=== PATIENT | female | born 1955 | race Caucasian/White ===

== ENCOUNTER → 2021-06-27 12:28 | Outpatient (CLI) | payer MEDICARE, BC, SELFPAY ==
--- NOTE | ~2021-06-27 | CT_ITS ---
EXAMINATION: CT abdomen pelvis wo con DATE: 06/27/2021 12:58 INDICATION: Generalized abdominal pain. TECHNIQUE: Computed tomography (CT) of the abdomen and pelvis was performed without intravenous contr ast. Automated exposure control and iterative reconstruction technique were employed. The dose-length product was 928.60 mGy-cm. COMPARISON: None. FINDINGS: The visualized portions of the lung bases demonstrate mild atelectasis. No pleural effusion . Cardiomegaly is noted. No pericardial effusion. There is a 14 mm cyst in the liver. There are zambrano es of cholecystectomy. The spleen, pancreas, adrenal glands, and kidneys are normal. There are scatte red diverticula in the colon. There is mild fat stranding around sigmoid colon, consistent with diver ticulitis. The appendix is not visualized. There are no dilated loops of bowel. There are no patholog ically enlarged lymph nodes. There is no free intraperitoneal fluid. There are areas of subcutaneous fat stranding in the intra-abdominal wall, likely inflammation or scarring. There is lumbar levoscoli osis and severe spondylosis. There is severe lower thoracic spondylosis. IMPRESSION: 1. Mild sigmoid diverticulitis. No perforation or abscess. 2. Areas of subcutaneous fat stranding in anterior abdominal wall, consistent with inflammation versu s scarring. Reviewed, dictated and finalized at location A. IMPRESSION: 1. Mild sigmoid diverticulitis. No perforation or abscess. 2. Areas of subcutaneous fat stranding in anterior abdominal wall, consistent w ith inflammation versus scarring.
== END ==
PROVIDERS: Visit Provider Surgery
DX: R10.84 Generalized abdominal pain (principal); K57.32 Diverticulitis of large intestine without perforation or abscess without bleeding
CPT/HCPCS: 74176

== ENCOUNTER → 2021-08-03 12:33 | Outpatient (CLI) | payer MEDICARE, BC, SELFPAY ==
--- NOTE | ~2021-08-03 | MM_ITS ---
EXAMINATION: MM screening alexis BI w [place] HISTORY: Screening mammogram TECHNIQUE: Craniocaudal and mediolateral oblique 3-D tomosynthesis images were obtained and synthetic 2-D images were generated. CAD analysis was submitted and interpreted. COMPARISON: 12/17/2019, 10/07/2018, 07/16/2017 outside bilateral screening mammogram examinations BREAST PARENCHYMAL COMPOSITION: There are scattered areas of fibroglandular density. FINDINGS: Bilateral stable circumscribed benign-appearing axillary and/or upper outer quadrant tail o pacities, including probable benign lymph node. There is no evidence of suspicious mass, calcificatio n, or architectural distortion to suggest malignancy in either breast. There has been no suspicious i nterval change. IMPRESSION: 1. No mammographic evidence of malignancy. 2. Recommend routine screening mammography in one year. BI-RADS Category 2: Benign finding(s). Reviewed, dictated and finalized at location D.
== END ==
PROVIDERS: PCP Internal Medicine; Visit Provider Nurse Practitioner
DX: Z12.31 Encounter for screening mammogram for malignant neoplasm of breast (principal)
CPT/HCPCS: 77063; 77067

== ENCOUNTER 2022-01-12 11:43 | Outpatient (CLI) | payer MEDICARE, BC, SELFPAY ==
--- NOTE | ~2022-01-12 | XR_ITS ---
EXAMINATION: XR abdomen/kub 1V INDICATION: Unspecified abdominal pain TECHNIQUE: Supine views of the abdomen were obtained on 2 radiographs. COMPARISON: CT, 06/27/2021 FINDINGS: A moderate volume of colonic stool is present. No dilated loops of bowel are evident. The v isualized lung bases are clear. Lumbar levoscoliosis is noted. Cholecystectomy clips are present in t he right upper quadrant. IMPRESSION: 1. Moderate volume of colonic stool. Reviewed, dictated and finalized at location F.
== END 2022-01-12 11:44 | disposition home or self-care (01) ==
PROVIDERS: PCP Internal Medicine; Visit Provider Nurse Practitioner
DX: R10.9 Unspecified abdominal pain (principal); R19.03 Right lower quadrant abdominal swelling, mass and lump; Z98.890 Other specified postprocedural states; Z87.19 Personal history of other diseases of the digestive system
CPT/HCPCS: 74018

== ENCOUNTER 2022-01-20 08:03 | Outpatient (CLI) | payer MEDICARE, BC, SELFPAY ==
--- NOTE | ~2022-01-20 | CT_ITS ---
EXAMINATION: CT abdomen pelvis w con INDICATION: Right lower quadrant pain and bulge, concern for recurrent hernia TECHNIQUE: Computed tomographic images of the abdomen and pelvis were obtained after the administrati on of 100 cc of Omnipaque 350 intravenous contrast. The dose-length product (DLP) was 1126.07 mGy-cm. Automated exposure control and iterative reconstruction technique were employed. COMPARISON: 06/27/2021 FINDINGS: Minimal dependent atelectasis is present in the lung bases. Cardiomegaly is noted. There is a 1.4 cm cyst of the right hepatic lobe. The spleen, pancreas, and adrenal glands are normal. The ga llbladder is surgically absent. Right Hypoattenuating lesions in the kidneys, measuring up to 4 mm on the right, are too small to characterize but likely represent cysts. No pathologically enlarged abdo elba or pelvic lymph nodes are identified. There is no free intraperitoneal gas or evidence of bowel obstruction. Colonic diverticulosis is present without evidence of diverticulitis. There is a modera te-sized ventral hernia involving the right lower quadrant abdominal wall which contains multiple non obstructed loops of small bowel. A smaller hernia seen just cranial to this larger hernia which conta ins a small amount of fat. There is moderate lumbar spondylosis. IMPRESSION: 1. Two ventral hernias of the right lower quadrant abdominal wall, one of which contains multiple loo ps of nonobstructed small bowel and the other a small amount of fat. Reviewed, dictated and finalized at location B. IMPRESSION: 1. Two ventral hernias of the right lower quadrant abdominal wall, one of which contains multiple loops of nonobstructed small bowel and the other a small dalia unt of fat.
[2022-01-20 08:28] LABS: Estimated Glomerular Filt Rate 50
== END 2022-01-20 08:04 | disposition home or self-care (01) ==
LOC: ANHIMG 08:06
PROVIDERS: PCP Internal Medicine; Visit Provider Nurse Practitioner
DX: R10.9 Unspecified abdominal pain (principal); K43.9 Ventral hernia without obstruction or gangrene
CPT/HCPCS: 74177; Q9967

== ENCOUNTER → 2022-03-08 09:52 | Outpatient (CLI) | payer MEDICARE, BC, SELFPAY ==
--- NOTE | ~2022-03-08 | DEXA_ITS ---
Bone Density Report Name: NGUYEN ABRAHAM Age: 67 Sex: Female Ethnicity: White Date of : 1955 Indication: postmenopausal; screening for osteoporosis; height loss; hysterectomy; Referring Provider: GERRI COOPER Study: Bone densitometry was performed. Exam Date: March 08, 2022 Accession number: [id number] Bone Density: Region BMD T-score Z-score Classification AP Spine (L1, L4) 1.270 2.1 3.9 Normal Femoral Neck (Left) 0.902 0.5 2.0 Normal Total Hip (Left) 1.142 1.6 2.9 Normal Femoral Neck (Right) 0.851 0.0 1.6 Normal Total Hip (Right) 1.114 1.4 2.7 Normal Total Hip Mean 1.128 1.5 2.8 Normal World Health Organization criteria for BMD impression classify patients as: Normal (T-score at or above -1.0), Osteopenia (T-score between -1.0 and -2.5), or Osteoporosis (T-score at or below -2.5). 10-year Fracture Risk: FRAX not reported because: All T-scores for Spine Total, Hip Total, Femoral Neck at or above -1.0 Clinical Information Provided by Patient: Has used the following medications: Vitamin D, Calcium, LEVOTHYROXINE Has the following medical conditions: Hysterectomy Patient maximum height was 64.0 Menopause Age: 34 No regular weight bearing exercise Onset of menses at age 10 Number of children 1 Impression: The patient has normal bone mass. Discussion: BONE DENSITY IS ABOVE THE MINIMUM DESIRABLE LEVEL AT ALL SKELETAL SITES TESTED. This patient?s bone mineral density is above the minimum desirable level (T-score -1.0 or better) at all sites measured. The patient should follow a healthful lifestyle (good nutrition with adequate calcium and vitamin D, and appropriate weight-bearing exercise). Follow-Up: Consider repeating this study in 5 years or sooner if there is some new clinical indication. Reported by: [facility] on 03/08/2022 10:24:00 AM. Reviewed, dictated and finalized at location AJenny CORDERO
== END ==
PROVIDERS: PCP Nurse Practitioner; Visit Provider Obstetrics & Gynecology
DX: Z78.0 Asymptomatic menopausal state (principal)
CPT/HCPCS: 77080

== ENCOUNTER 2022-03-13 09:32 | Outpatient (CLI) | payer MEDICARE, BC, SELFPAY ==
--- NOTE | 2022-03-13 09:55 | ECHO_ITS ---
Patient Info Name: Kari Marrero Age: 67 years : 1955 Gender: Female Ht: 61 in Wt: 190 lbs BSA: 1.97 m2 HR: 97 bpm BP: 132 / 74 mmHg Technical Quality: Good Exam Date: 03/13/2022 10:04 AM Exam Location: [facility] Patient Status: Outpatient Admit Date: 03/13/2022 Staff Ordering Physician: Leonor Benoit NP Generating Plant Superintendent: Kelsea Eric RDCS Attending Provider: Leonor Benoit NP Referring Physician: Kaycee BASURTO; Exam Type: CA echo doppler color flow Study Info Indications I51.7 - Cardiomegaly Complete two-dimensional, color flow and Doppler transthoracic echocardiogram is performed. Summary 1. Complete two-dimensional, color flow and Doppler transthoracic echocardiogram is performed. 2. Left ventricular chamber dimension is mildly enlarged. 3. Left ventricular systolic function is normal, estimated at 60-65%. 4. The left ventricular diastolic function is abnormal. 5. E/e' 10 is mildly elevated. 6. Left atrial chamber dimension is moderately enlarged. 7. Right atrial chamber dimension is severely enlarged. 8. There is mild aortic valve sclerosis. 9. There is trace aortic valve regurgitation. 10. There is trace mitral valve regurgitation. 11. There is mild tricuspid valve regurgitation. 12. No pulmonary hypertension, estimated pulmonary arterial systolic pressure is 27 mmHg. Left Ventricle E/e' 10 is mildly elevated. Left ventricular chamber dimension is mildly enlarged. Left ventricular systolic function is normal, estimated at 60-65%. The left ventricular diastolic function is abnormal. Right Ventricle Right ventricular systolic function is normal and with normal TAPSE 2.4 cm. Right ventricular chamber dimension is normal. Left Atria Left atrial chamber dimension is moderately enlarged. Right Atria Right atrial chamber dimension is severely enlarged. Aortic Valve The aortic valve is trileaflet. There is mild aortic valve sclerosis. There is no aortic valve stenosis. There is trace aortic valve regurgitation. Pulmonic Valve There is no pulmonic regurgitation. Mitral Valve There is no mitral valve stenosis. There is trace mitral valve regurgitation. Tricuspid Valve There is mild tricuspid valve regurgitation. No pulmonary hypertension, estimated pulmonary arterial systolic pressure is 27 mmHg. Pericardium/Pleural There is no pericardial effusion. Inferior Vena Cava Normal inferior vena cava with >50% collapse upon inspiration consistent with normal right atrial pressure, 5 mmHg. Aorta The aortic root size at the sinus of Valsalva is normal. Left Ventricular Outflow Tract Name Value Normal LVOT 2D LVOT Diameter 2.0 cm LVOT Doppler LVOT Peak Gradient 4 mmHg LVOT Mean Gradient 3 mmHg LVOT VTI 19 cm LVOT VTI/AV VTI Ratio 0.9 LVOT Stroke Volume 60 ml LVOT CO 15.4 l/min LVOT CI 7.8 l/min/m2 Pulmonic Valve
== END 2022-03-13 09:33 | disposition home or self-care (01) ==
LOC: ANHCARD 09:33
PROVIDERS: PCP Nurse Practitioner; Visit Provider Nurse Practitioner
DX: I51.7 Cardiomegaly (principal); I36.1 Nonrheumatic tricuspid (valve) insufficiency
CPT/HCPCS: 93306

== ENCOUNTER 2022-07-17 00:56 | Day surgery (SDC) | payer MEDICARE, BC, SELFPAY ==
[2022-07-14 15:10] VITALS: BMI 33.0
[2022-07-17] VITALS (9 sets, daily range): BP systolic 104–119; BP diastolic 62–85; PULSE 50–79; RESP 12–20; TEMP 36.3; O2SAT 96–100; BMI 33.2
--- NOTE | 2022-07-17 08:30 | ECG_ITS ---
Measurements Intervals [place] Rate: 50 P: 73 [place]: 184 QRS: 32 QRSD: 90 T: 31 QT: 447 QTc: 409 Interpretive Statements SINUS BRADYCARDIA POOR R-WAVE PROGRESSION LOW QRS VOLTAGE ABNORMAL ECG COMPARED TO ECG 07/17/2022 08:27:27 SINUS BRADYCARDIA REPLACES ATRIAL FIBRILLATION Electronically Signed On 07-17-2022 10:45:47 CDT by Femi Blake M.D.
[2022-07-17 08:46] LABS: Anion Gap 8 mmol/L (8-16); Blood Urea Nitrogen 19 mg/dL (7-17); Calcium 9.1 mg/dL (8.4-10.2); Carbon Dioxide 32 mmol/L (22-30); Chloride 100 mmol/L (98-107); Estimated CRCL calculation 43 ml/min; Estimated Glomerular Filt Rate 45; Glucose 118 mg/dL (65-110); Magnesium 1.9 mg/dL (1.6-2.3); Potassium 3.3 mmol/L (3.4-5.0); Sodium 140 mmol/L (137-145)
--- NOTE | 2022-07-17 09:52 | WPDMODSED ---
Moderate Sedation Note-Pt Data Patient Data Diagnosis: Persistent atrial fibrillation Present Complaint: No complaints Procedure to be performed/Plan: DC cardioversion Allergies Allergy/AdvReac Type Severity Reaction Status Date / Time amoxicillin [From Augmentin] Allergy Vomiting Verified 07/17/22 08:32 clavulanic acid Allergy Vomiting Verified 07/17/22 08:32 [From Augmentin] codeine Allergy Vomiting Verified 07/17/22 08:32 fentanyl Allergy CARDIAC Verified 07/17/22 08:32 ARREST niacin Allergy Hives Verified 07/17/22 08:32 Home Medications Medication Instructions Recorded Confirmed Type kwgjkxh-cmouwgoneswim-btlxihrq 250 0.5 tablet PO DAILY 06/07/21 07/14/22 History mg-250 mg-65 mg tablet (Excedrin Migraine) flash glucose scanning reader #1 ea 10/18/21 07/14/22 Rx (FreeStyle Preethi 14 Day [place]) vibegron 75 mg tablet (Gemtesa) 75 mg PO DAILY 10/18/21 07/14/22 History flash glucose sensor (Ibetoryle #6 ea 11/29/21 07/14/22 Rx Preethi 14 Day Sensor kit) polyethylene glycol 3350 17 gram 17 g PO BID #60 ea 01/12/22 07/14/22 Rx oral powder packet (Miralax) hydrochlorothiazide 25 mg tablet 25 mg PO DAILY #90 tabs 01/26/22 07/14/22 Rx levothyroxine 50 mcg tablet 50 mcg PO DAILY #90 tabs 01/26/22 07/14/22 Rx (Synthroid) lisinopril 20 mg tablet 20 mg PO DAILY #90 tabs 01/26/22 07/14/22 Rx lovastatin 40 mg tablet 40 mg PO QPM #90 tabs 01/26/22 07/14/22 Rx metformin 750 mg tablet,extended 750 mg PO DAILY #90 tabs 01/26/22 07/14/22 Rx release 24 hr rabeprazole 20 mg tablet,delayed 20 mg PO DAILY #90 tabs 01/26/22 07/14/22 Rx release sertraline 100 mg tablet (Zoloft) 100 mg PO DAILY #90 tabs 01/26/22 07/14/22 Rx esterified 1 tablet PO DAILY #90 tabs 02/09/22 07/14/22 Rx estrogens-methyltestosterone 1.25 mg-2.5 mg tablet amlodipine 10 mg tablet 10 mg PO DAILY #90 tabs 02/28/22 07/17/22 Rx apixaban 5 mg tablet (Eliquis) 5 mg PO BID 06/01/22 07/17/22 History erenumab-aooe 140 mg/mL 140 mg subcut MONTHLY #4 mL 06/01/22 07/14/22 Rx subcutaneous auto-injector (Aimovig Autoinjector) albuterol sulfate 90 mcg/actuation 1 inh inhalation Q4H PRN Allergic 07/14/22 07/14/22 History aerosol inhaler Symptoms metoprolol succinate 50 mg 50 mg PO DAILY 07/14/22 07/14/22 History tablet,extended release 24 hr Current Medications: Active Medications Sodium Chloride (Normal Saline Iv) 1,000 mls @ 30 mls/hr IV CONT .Q24H JOSÉ Sedation/Anesthesia: No previous sedation/anesthesia problems (including family history). [facility] Past Medical History Medical History Absence of gallbladder Anxiety Arthritis Asthma Chronic kidney disease Constipation Constipation COPD (chronic obstructive pulmonary disease) Diabetes Diverticulosis Fusion of joint GERD (gastroesophageal reflux disease) Headache Hematuria History of multiple miscarriages Hyperlipidemia Hypertension Interstitial cystitis Kidney disease Liver hemangioma Migraines Obesity (BMI 30-39.9) PTSD (post-traumatic stress disorder) RLQ abdominal mass Skin cancer Thyroid disorder Ventral incisional hernia Surgical History Surgical History H/O arthroplasty 2007 joint arthroplasty (anchovy procedure) H/O hernia repair 2 hernia repairs 02/25/20 left inguinal and umbilical Spigelian hernia repair H/O removal of cyst H/O: hysterectomy 1990 History of carpal tunnel surgery History of cholecystectomy History of dilatation and curettage History of left knee replacement Hx of umbilical hernia repair Joint replaced Family History Family History Father Hypertension Heart disease Cerebrovascular accident Mother Hypertension Depression Heart disease Cerebrovascular accident Breast cancer Sibling Hypertension Depression FH: kidne
--- NOTE | 2022-07-17 10:09 | P.PCNCC_ITS ---
Cardiac Cath Procedure Note Date of procedure:: 07/17/22 Performing physician:: Femi Blake MD Indication:: Persistent atrial fibrillation Brief clinical history:: This is a 67-year-old woman with a history of atrial fibrillation of unknown chronicity. She is admitted today as an outpatient to for an attempt at restoring sinus rhythm. She has been anticoagulated with apixaban. He is also taking metoprolol. Procedure Procedure performed:: DC cardioversion Sedation/Medication given:: IV propofol in aliquots total dosage of 80 mg Estimated blood loss:: No blood loss Procedure note:: Patient was brought to the cardiac catheterization lab holding area in the postabsorptive state defibrillator patches were placed in the AP position. She had nasal cannula oxygen place an IV access in the right arm. She was then sedated using a propofol in aliquots a total dosage of 80 mg provided excellent sedation. She was then DC cardioverted with 200 joules in a synchronized fashion restoring sinus rhythm/sinus bradycardia. I did administer 0.5 mg of atropine prior to cardioverting the patient. Findings:: Successful uncomplicated DC cardioversion using 200 joules in a synchronized fashion x1 shock terminating atrial fib restoring sinus bradycardia Conclusion:: Successful DC cardioversion of atrial fib of unknown chronicity. Patient will be discharged after recovery from sedation and followed up as in the office to assess maintenance of sinus rhythm. Femi Blake MD [facility]
--- NOTE | 2022-07-17 10:30 | ECG_ITS ---
Measurements Intervals [place] Rate: 82 P: MD: 0 QRS: 31 QRSD: 87 T: -20 QT: 371 QTc: 434 Interpretive Statements ATRIAL FIBRILLATION LOW QRS VOLTAGE IN PRECORDIAL LEADS [QRS DEFLECTION < 1.0 mV IN CHEST LEADS] NONSPECIFIC ST & T-WAVE ABNORMALITY ABNORMAL RHYTHM ECG NO PREVIOUS ECG AVAILABLE FOR COMPARISON Electronically Signed On 07-17-2022 10:43:30 CDT by Femi Blake M.D.
--- NOTE | 2022-07-17 10:52 | SUR.OPER ---
1004 all questions answered with at the bedside. Patients family escorted to waiting area. 1006 Sedation administered by physician, Cardioverted at 200j sync. without complications. 1010 Patient waking up and answering questions appropriately, appears drowsy.
--- NOTE | 2022-07-17 11:17 | SUR.PHASEII ---
1115 IV removed without difficulty. Assisted patient up, gait steady. 1117 Patient dressing self, ready for discharge.
== END 2022-07-17 11:35 | disposition home or self-care (01) ==
PROVIDERS: PCP Nurse Practitioner; Visit Provider Specialist
PROC: 5A2204Z Restoration of Cardiac Rhythm, Single (ICD-10-PCS; principal; 2022-07-17 10:00)
DX: I48.19 Other persistent atrial fibrillation (principal); J44.9 Chronic obstructive pulmonary disease, unspecified; I12.9 Hypertensive chronic kidney disease with stage 1 through stage 4 chronic kidney disease, or unspecified chronic kidney disease; E11.22 Type 2 diabetes mellitus with diabetic chronic kidney disease; N18.9 Chronic kidney disease, unspecified; F41.9 Anxiety disorder, unspecified; K21.9 Gastro-esophageal reflux disease without esophagitis; E78.5 Hyperlipidemia, unspecified; E07.9 Disorder of thyroid, unspecified; F43.10 Post-traumatic stress disorder, unspecified; Z79.01 Long term (current) use of anticoagulants; Z79.84 Long term (current) use of oral hypoglycemic drugs; Z79.51 Long term (current) use of inhaled steroids
CPT/HCPCS: 36415; 80048; 83735; 92960; J0461; J2704; J7030

== ENCOUNTER → 2022-08-23 13:34 | Outpatient (CLI) | payer MEDICARE, BC, SELFPAY ==
--- NOTE | ~2022-08-23 | MM_ITS ---
EXAMINATION: MM screening alexis BI w [place] HISTORY: Screening mammogram, family history of breast cancer in her mother and sister. TECHNIQUE: Craniocaudal and mediolateral oblique 3-D tomosynthesis images were obtained and synthetic 2-D images were generated. CAD analysis was submitted and interpreted. COMPARISON: 08/03/2021, 12/17/2019, 10/07/2018 BREAST PARENCHYMAL COMPOSITION: There are scattered areas of fibroglandular density. FINDINGS: No suspicious mass, calcification, or architectural distortion are identified in either estefani ast to suggest malignancy. There has been no suspicious interval change. IMPRESSION: 1. No mammographic evidence of malignancy. 2. Recommend routine screening mammography in one year. BI-RADS Category 1: Negative Reviewed, dictated and finalized at location A.
== END ==
PROVIDERS: PCP Nurse Practitioner; Visit Provider Nurse Practitioner
DX: Z12.31 Encounter for screening mammogram for malignant neoplasm of breast (principal)
CPT/HCPCS: 77063; 77067

== ENCOUNTER 2022-09-25 00:25 | Day surgery (SDC) | payer MEDICARE, BC, SELFPAY ==
[2022-09-22 10:51] VITALS: BMI 32.8
--- NOTE | 2022-09-25 08:30 | ECG_ITS ---
Measurements Intervals [place] Rate: 49 P: 46 [place]: 204 QRS: 57 QRSD: 106 T: 52 QT: 464 QTc: 423 Interpretive Statements SINUS BRADYCARDIA POSSIBLE INFERIOR MYOCARDIAL INFARCTION , PROBABLY OLD [30 ms Q WAVE IN II/aVF] NONSPECIFIC ST AND T-WAVE ABNORMALITIES ABNORMAL ECG COMPARED TO ECG 09/25/2022 08:48:25 SINUS BRADYCARDIA NOW PRESENT Electronically Signed On 09-25-2022 10:42:44 CDT by Chang Singh M.D.
[2022-09-25 08:42] VITALS: BP 129/81; PULSE 70; RESP 16; TEMP 36.4; O2SAT 94; BMI 33.0
[2022-09-25 08:56] LABS: Anion Gap 5 mmol/L (8-16); Blood Urea Nitrogen 25 mg/dL (7-17); Calcium 9.2 mg/dL (8.4-10.2); Carbon Dioxide 33 mmol/L (22-30); Chloride 99 mmol/L (98-107); Estimated CRCL calculation 39 ml/min; Estimated Glomerular Filt Rate 41; Glucose 109 mg/dL (65-110); Magnesium 1.9 mg/dL (1.6-2.3); Potassium 3.5 mmol/L (3.4-5.0); Sodium 137 mmol/L (137-145)
--- NOTE | 2022-09-25 09:15 | WPDMODSED ---
Moderate Sedation Note-Pt Data Patient Data Diagnosis: recurrent, symptomatic atrial fibrillation Present Complaint: fatigue/TAVAREZ Procedure to be performed/Plan: DC cardioversion Allergies Allergy/AdvReac Type Severity Reaction Status Date / Time fentanyl Allergy CARDIAC Verified 09/22/22 11:04 ARREST niacin Allergy Hives Verified 09/22/22 11:04 amoxicillin [From Augmentin] AdvReac Vomiting Verified 09/22/22 11:04 clavulanic acid AdvReac Vomiting Verified 09/22/22 11:04 [From Augmentin] codeine AdvReac Vomiting Verified 09/22/22 11:04 Home Medications Medication Instructions Recorded Confirmed Type idggvse-rylqimhhppotv-uzwufitc 250 0.5 tablet PO DAILY 06/07/21 09/25/22 History mg-250 mg-65 mg tablet (Excedrin Migraine) flash glucose scanning reader #1 ea 10/18/21 07/14/22 Rx (FreeStyle Preethi 14 Day [place]) vibegron 75 mg tablet (Gemtesa) 75 mg PO DAILY 10/18/21 09/25/22 History flash glucose sensor ([employer] #6 ea 11/29/21 07/14/22 Rx Preethi 14 Day Sensor kit) polyethylene glycol 3350 17 gram 17 g PO BID #60 ea 01/12/22 09/25/22 Rx oral powder packet (Miralax) hydrochlorothiazide 25 mg tablet 25 mg PO DAILY #90 tabs 01/26/22 09/25/22 Rx levothyroxine 50 mcg tablet 50 mcg PO DAILY #90 tabs 01/26/22 09/25/22 Rx (Synthroid) lisinopril 20 mg tablet 20 mg PO DAILY #90 tabs 01/26/22 09/25/22 Rx lovastatin 40 mg tablet 40 mg PO QPM #90 tabs 01/26/22 09/25/22 Rx metformin 750 mg tablet,extended 750 mg PO DAILY #90 tabs 01/26/22 09/25/22 Rx release 24 hr rabeprazole 20 mg tablet,delayed 20 mg PO DAILY #90 tabs 01/26/22 09/25/22 Rx release sertraline 100 mg tablet (Zoloft) 100 mg PO DAILY #90 tabs 01/26/22 09/25/22 Rx esterified 1 tablet PO DAILY #90 tabs 02/09/22 09/25/22 Rx estrogens-methyltestosterone 1.25 mg-2.5 mg tablet amlodipine 10 mg tablet 10 mg PO DAILY #90 tabs 02/28/22 09/25/22 Rx apixaban 5 mg tablet (Eliquis) 5 mg PO BID 06/01/22 09/25/22 History erenumab-aooe 140 mg/mL 140 mg subcut MONTHLY #4 mL 06/01/22 09/22/22 Rx subcutaneous auto-injector (Aimovig Autoinjector) albuterol sulfate 90 mcg/actuation 1 inh inhalation Q4H PRN Allergic 07/14/22 09/22/22 History aerosol inhaler Symptoms metoprolol succinate 50 mg 50 mg PO DAILY 07/14/22 09/25/22 History tablet,extended release 24 hr flecainide 100 mg tablet 100 mg PO BID 09/22/22 09/25/22 History furosemide 20 mg tablet 20 mg PO DAILY 09/22/22 09/25/22 History potassium chloride 20 mEq 20 meq PO DAILY 09/22/22 09/25/22 History tablet,extended release(part/cryst) (Klor-Con M) Current Medications: Active Medications Sodium Chloride (Normal Saline Iv) 1,000 mls @ 30 mls/hr IV CONT .Q24H JOSÉ Sedation/Anesthesia: No previous sedation/anesthesia problems (including family history). [facility] Past Medical History Medical History Absence of gallbladder Anxiety Arthritis Asthma Chronic kidney disease Constipation Constipation COPD (chronic obstructive pulmonary disease) Diabetes Diverticulosis Fusion of joint GERD (gastroesophageal reflux disease) Headache Hematuria History of multiple miscarriages Hyperlipidemia Hypertension Interstitial cystitis Kidney disease Liver hemangioma Migraines Obesity (BMI 30-39.9) PTSD (post-traumatic stress disorder) RLQ abdominal mass Skin cancer Thyroid disorder Ventral incisional hernia Surgical History Surgical History H/O arthroplasty 2007 joint arthroplasty (anchovy procedure) H/O hernia repair 2 hernia repairs 02/25/20 left inguinal and umbilical Spigelian hernia repair H/O removal of cyst H/O: hysterectomy 1990 History of carpal tunnel surgery History of cholecystectomy History of dilatation and curettage History of left knee replacement Hx of umbilical hernia repair Joint replaced Family History Family
--- NOTE | 2022-09-25 09:30 | ECG_ITS ---
Measurements Intervals [place] Rate: 66 P: [place]: 0 QRS: 60 QRSD: 105 T: 21 QT: 433 QTc: 455 Interpretive Statements ATRIAL FIBRILLATION PROBABLE INFERIOR MYOCARDIAL INFARCTION , PROBABLY OLD [35 ms Q WAVE IN II/aVF] NONSPECIFIC ST AND T-WAVE ABNORMALITY ABNORMAL ECG COMPARED TO ECG 07/17/2022 10:13:44 ATRIAL FIBRILLATION NOW PRESENT Electronically Signed On 09-25-2022 10:41:15 CDT by Chang Singh M.D.
[2022-09-25] MEDS: ATROPINE SULFATE 1 MG/10 ML SYRINGE 0.5 MG IV PUSH (09:40)
[2022-09-25 09:48] VITALS: BP 103/62; PULSE 68; RESP 22; O2SAT 95
[2022-09-25 09:53] VITALS: PULSE 48; RESP 14; O2SAT 96
--- NOTE | 2022-09-25 09:54 | WPDCARDPROC ---
Cardiac Cath Procedure Note Date of procedure:: 09/25/22 Performing physician:: Femi Blake MD Indication:: Recurrent symptomatic atrial fibrillation Brief clinical history:: this is a 67-year-old lady with atrial fibrillation and she is symptomatic with fatigue lack of energy and exertional shortness of breath. She was cardioverted electrically in July of this year but after several weeks recurred into atrial fibrillation. She has now been treated with flecainide as an outpatient in hopes of more effectively maintaining sinus rhythm. she remains anticoagulated with apixaban. Procedure Procedure performed:: DC cardioversion Sedation/Medication given:: IV propofol in aliquots total dosage of 70 mg Estimated blood loss:: no blood loss Procedure note:: patient was brought to the cardiac catheterization lab in the postabsorptive state IV Access was placed in the right upper extremity and then defibrillator patches placed in the AP position. They were connected to the defibrillator in synchronized mode set at 200 joules output. because of history of sinus pre elected to give her 0.5 mg of atropine. She was then sedated and counter shocked with 200 joules terminating AFib restoring sinus bradycardia with heart rate of 45-50. Findings:: As above Conclusion:: successful uncomplicated DC cardioversion terminating atrial fib restoring sinus rhythm / sinus bradycardia with 200 joules x1 shock. Femi Blake MD [facility]
[2022-09-25 10:00] VITALS: BP 106/65; PULSE 48; RESP 14; O2SAT 97
[2022-09-25 10:15] VITALS: BP 101/58; PULSE 48; RESP 14; O2SAT 98
[2022-09-25] MEDS: SODIUM CHLORIDE 0.9% IV 1,000 ML 30 ML IV CONT (10:25)
[2022-09-25 10:30] VITALS: BP 102/64; PULSE 47; RESP 16; O2SAT 95
== END 2022-09-25 10:50 | disposition home or self-care (01) ==
PROVIDERS: PCP Internal Medicine; Visit Provider Specialist
PROC: 5A2204Z Restoration of Cardiac Rhythm, Single (ICD-10-PCS; principal; 2022-09-25 10:00)
DX: I48.91 Unspecified atrial fibrillation (principal); I12.9 Hypertensive chronic kidney disease with stage 1 through stage 4 chronic kidney disease, or unspecified chronic kidney disease; E11.22 Type 2 diabetes mellitus with diabetic chronic kidney disease; N18.9 Chronic kidney disease, unspecified; J44.9 Chronic obstructive pulmonary disease, unspecified; K21.9 Gastro-esophageal reflux disease without esophagitis; E78.5 Hyperlipidemia, unspecified; F41.9 Anxiety disorder, unspecified; F43.10 Post-traumatic stress disorder, unspecified; E07.9 Disorder of thyroid, unspecified; Z79.84 Long term (current) use of oral hypoglycemic drugs; Z79.01 Long term (current) use of anticoagulants; Z79.51 Long term (current) use of inhaled steroids
CPT/HCPCS: 36415; 80048; 83735; 92960

== ENCOUNTER 2022-09-26 20:02 | Inpatient (IN) | payer MEDICARE, BC, SELFPAY ==
--- NOTE | ~2022-09-26 | XR_ITS ---
EXAMINATION: XR chest 2V Exam Date/Time: 09/26/2022 20:40 CDT HISTORY: chest pain/SOB WAS IN AFIB YESTERDAY AND SAID SHE CAME Comparison: None. RESULT: Lines, tubes, and devices: Cholecystectomy clips. Lungs and pleura: Clear. Cardiomediastinal silhouette: Cardiomegaly. Other: No acute osseous or upper abdominal finding. Lumbar scoliosis. IMPRESSION: No acute cardiopulmonary process. Reviewed, dictated and finalized at location K.
--- NOTE | ~2022-09-26 | CT_ITS ---
EXAMINATION: CT abdomen pelvis w con DATE: 09/26/2022 22:40 INDICATION: n/v, LGIB TECHNIQUE: Computed tomography (CT) of the abdomen and pelvis was performed with 100 mL Omnipaque-350 intravenous contrast. Automated exposure control and iterative reconstruction technique were employe d. The dose-length product was 995.47 mGy-cm. COMPARISON: 01/20/2022. FINDINGS: Lower thorax: Bibasilar scar/atelectasis. Small right pleural effusion. Cardiomegaly. Liver: Enlarged. Periportal edema. Heterogeneous. Simple left lobe cyst. Simple peripheral right lobe cyst. Wedge-shaped hyperdensity in the posterior aspect of the liver, likely representing fatty spar ing or transient vascular difference. Scattered additional subcentimeter lesions that are too small t o characterize but most likely represent cysts. Biliary/Gallbladder: Gallbladder is absent. No bile duct dilation. Inflammatory change in the florina h epatis and surrounding the common bile duct. Pancreas: Mild atrophy Spleen: Normal. Adrenals:No mass. Kidneys: No suspicious mass, stone, or hydronephrosis. GI tract: Moderate distal esophageal and gastric wall edema. No small or large bowel dilation. Normal appendix. Diverticulosis without diverticulitis. Mesentery/Peritoneum: Small volume ascites. No mass or free air. Retroperitoneum: No mass. Pelvis: Pelvic organs are within normal limits. Soft Tissues: Scattered moderate subjacent edema. Interval repair of the right lower abdominal ventra l hernias. Bones: No acute osseous finding. IMPRESSION: Moderate esophagitis/gastritis. Hepatomegaly and steatosis. Periportal edema and inflammatory changes in the florina hepatis and surrounding the common bile duct, consider hepatitis and ascending cholangitis in the differential. Small volume ascites. Reviewed, dictated and finalized at location K. IMPRESSION: Moderate esophagitis/gastritis. Hepatomegaly and steatosis. Periportal edema and inflammatory changes in the florina hepatis and surrounding the common bile duct, consider hepatitis and ascending cholangitis in the diffe rential. Small volume ascites.
[2022-09-26 20:04] VITALS: BP 124/74; PULSE 55; RESP 15; TEMP 36.9; O2SAT 98
--- NOTE | 2022-09-26 20:09 | ECG_ITS ---
Measurements Intervals [place] Rate: 51 P: 47 [place]: 206 QRS: 50 QRSD: 98 T: 15 QT: 452 QTc: 418 Interpretive Statements SINUS BRADYCARDIA POSSIBLE ANTERIOR MYOCARDIAL INFARCTION , PROBABLY OLD [30 ms Q WAVE IN V3/V4, OR R < 0.2 mV IN V4] PROBABLE INFERIOR MYOCARDIAL INFARCTION , PROBABLY OLD [35 ms Q WAVE IN II/aVF] NONSPECIFIC T-WAVE ABNORMALITY ABNORMAL ECG Electronically Signed On 09-27-2022 11:55:17 CDT by Chang Singh M.D.
[2022-09-26 20:48] LABS: Basophils Absolute Auto 0.1 K/mm3 (0.0-0.1); Basophils Percent Auto 0.7 % (0.2-1.2); Eosinophils Absolute Auto 0.1 K/mm3 (0-0.3); Hematocrit 33.2 % (37.0-47.0); Hemoglobin 10.3 g/dL (12.0-15.0); Immature Granulocyte Absolute 0.03 K/mm3 (0.00-0.031); Immature Granulocyte Percent A 0.4 % (0-0.5); Lymphocytes Absolute Auto 0.92 K/mm3 (0.9-3.2); Lymphocytes Percent Auto 13.1 % (18.3-44.2); Mean Corpuscular Hemoglobin 27.1 pg (26-34); Mean Corpuscular Volume 87.4 fl (80-100); Mean Platelet Volume 9.9 fl (7.4-10.4); Monocytes Absolute Auto 0.4 K/mm3 (0.1-0.6); Monocytes Percent Auto 5.6 % (2.6-8.5); Neutrophils Absolute Auto 5.6 K/mm3 (1.3-6.7); Neutrophils Percent Auto 79.2 % (45.5-73.1); Platelet Count Result 305 k/mm3 (150-375); Red Cell Distribution Width 14.5 % (11.5-14.5)
[2022-09-26 20:55] LABS: Alanine Aminotransferase 21 U/L (6-35); Alkaline Phosphatase 62 U/L (38-126); Anion Gap 7 mmol/L (8-16); Aspartate Amino Transferase 33 U/L (14-36); Bilirubin,Total 0.3 mg/dL (0.2-1.3); Blood Urea Nitrogen 30 mg/dL (7-17); Calcium 8.7 mg/dL (8.4-10.2); Carbon Dioxide 32 mmol/L (22-30); Chloride 97 mmol/L (98-107); Estimated CRCL calculation 31 ml/min; Estimated Glomerular Filt Rate 30; Glucose 171 mg/dL (65-110); INR 1.4; Lipase 85 U/L (23-300); Potassium 4.2 mmol/L (3.4-5.0); Prothrombin Time 18.2 Seconds (11.1-14.7); Sodium 136 mmol/L (137-145)
[2022-09-26 21:07] LABS: Troponin I < 0.012 ng/mL (0.000-0.034)
[2022-09-26 21:31] VITALS: BP 131/86; PULSE 54; RESP 14; O2SAT 95
[2022-09-26 22:11] VITALS: BP 134/87; PULSE 58; RESP 19; O2SAT 95
--- NOTE | 2022-09-26 22:24 | PC.NURSE ---
Pt reports her head is shaking and that she does not feel as if she is in control of the movements
[2022-09-26] MEDS: PANTOPRAZOLE SODIUM IV 40 MG VIAL IV PUSH (22:25)
[2022-09-26] MEDS: ONDANSETRON INJ 4 MG/2 ML VIAL IV PUSH (22:26)
--- NOTE | 2022-09-26 22:36 | ED.NAVMDI ---
HPI - Nausea/Vomiting/Diarrhea General Chief complaint: Chest Pain Stated complaint: cardioversion yesterday/CP/SOB/nausea Time Seen by Provider: 09/26/22 21:31 History of Present Illness HPI Narrative: Patient presents after she had cardioversion yesterday and today has just been feeling overall unwell, with nausea, vomiting, right-sided abdominal discomfort, and diarrhea including some blood in her stool. She also had some mild shortness of breath and chest discomfort. Related Data Home Medications Medication Instructions Recorded Confirmed fnieirk-jzlbitcshzxcd-jdwlwaef 250 0.5 tablet PO DAILY 06/07/21 09/25/22 mg-250 mg-65 mg tablet (Excedrin Migraine) vibegron 75 mg tablet (Gemtesa) 75 mg PO DAILY 10/18/21 09/25/22 apixaban 5 mg tablet (Eliquis) 5 mg PO BID 06/01/22 09/25/22 albuterol sulfate 90 mcg/actuation 1 inh inhalation Q4H PRN Allergic 07/14/22 09/22/22 aerosol inhaler Symptoms metoprolol succinate 50 mg 50 mg PO DAILY 07/14/22 09/25/22 tablet,extended release 24 hr flecainide 100 mg tablet 100 mg PO BID 09/22/22 09/25/22 furosemide 20 mg tablet 20 mg PO DAILY 09/22/22 09/25/22 potassium chloride 20 mEq 20 meq PO DAILY 09/22/22 09/25/22 tablet,extended release(part/cryst) (Klor-Con M) Allergies Allergy/AdvReac Type Severity Reaction Status Date / Time fentanyl Allergy CARDIAC Verified 09/26/22 20:07 ARREST niacin Allergy Hives Verified 09/26/22 20:07 amoxicillin [From Augmentin] AdvReac Vomiting Verified 09/26/22 20:07 clavulanic acid AdvReac Vomiting Verified 09/26/22 20:07 [From Augmentin] codeine AdvReac Vomiting Verified 09/26/22 20:07 Review of Systems Review of Systems: CONST: No fever. HEENT: No sore throat C/V: No chest pain RESP: No cough GI: Reports abdominal pain, nausea, vomiting[, blood in diarrhea] : No dysuria. M/S: No joint pain. SKIN: No rash. NEURO: [No headache or focal numbness or weakness] PSYCH: [No depression] PMFSH Past Medical History Medical History Absence of gallbladder Anxiety Arthritis Asthma Chronic kidney disease Constipation Constipation COPD (chronic obstructive pulmonary disease) Diabetes Diverticulosis Fusion of joint GERD (gastroesophageal reflux disease) Headache Hematuria History of multiple miscarriages Hyperlipidemia Hypertension Interstitial cystitis Kidney disease Liver hemangioma Migraines Obesity (BMI 30-39.9) PTSD (post-traumatic stress disorder) RLQ abdominal mass Skin cancer Thyroid disorder Ventral incisional hernia Surgical History Surgical History H/O arthroplasty 2007 joint arthroplasty (anchovy procedure) H/O hernia repair 2 hernia repairs 02/25/20 left inguinal and umbilical Spigelian hernia repair H/O removal of cyst H/O: hysterectomy 1990 History of carpal tunnel surgery History of cholecystectomy History of dilatation and curettage History of left knee replacement Hx of umbilical hernia repair Joint replaced Family History Family History Father Hypertension Heart disease Cerebrovascular accident Mother Hypertension Depression Heart disease Cerebrovascular accident Breast cancer Sibling Hypertension Depression FH: kidney cancer Other Diabetes mellitus Hypertension Other Blood clotting disorder Social History Social History Smoking status: Never smoker Second hand tobacco smoke exposure: Yes Alcohol intake: never Substance use: never Substance use type: does not use Lack of Transportation: No Lack of Food: Never True Current Housing: I Have Housing Concerned About Future Housing: No Difficulty Paying Gas/Electric Bills: No Difficulty Paying for Meds: No Currently Unemployed: No Education: Associate Degree Difficulty w/ Ch
[2022-09-26 22:47] VITALS: BP 110/97; PULSE 53; RESP 17; O2SAT 96
[2022-09-26] MEDS: LACTATED RINGERS 1,000 ML 999 ML IV CONT (22:47)
[2022-09-26 23:01] VITALS: BP 124/82; PULSE 55; RESP 16; O2SAT 94
[2022-09-26 23:01] LABS: Glucose Point of Care 123 mg/dl (65-105)
[2022-09-26 23:51] LABS: Troponin I < 0.012 ng/mL (0.000-0.034)
[2022-09-27] VITALS (17 sets, daily range): BP systolic 120–144; BP diastolic 54–74; PULSE 48–58; RESP 14–19; TEMP 36.4–37.3; O2SAT 93–100; BMI 33.5
--- NOTE | 2022-09-27 03:22 | ADMGEN ---
This patient, Kari Marrero, was admitted to [facility] Surg Room 302-01. Patient/family oriented to hospital policies and general routines including ID bracelet, bed and alarms, visiting hours, pain management, procedures, bathroom and other care routines, personal items, smoking policy, room service/diet, and visiting hours. Information on how to activate the Rapid Response Team has been discussed. Patient/Family are encouraged to report perceived risks to care and to ask questions if they do not understand what they are told or what they should do.
[2022-09-27 03:24] LABS: Troponin I < 0.012 ng/mL (0.000-0.034)
[2022-09-27 04:18] LABS: Glucose Point of Care 107 mg/dl (65-105)
[2022-09-27 06:43] LABS: Basophils Absolute Auto 0.1 K/mm3 (0.0-0.1); Basophils Percent Auto 0.7 % (0.2-1.2); Eosinophils Absolute Auto 0.1 K/mm3 (0-0.3); Eosinophils Percent Auto 0.8 % (0-4.4); Hematocrit 31.2 % (37.0-47.0); Hemoglobin 9.6 g/dL (12.0-15.0); Immature Granulocyte Absolute 0.03 K/mm3 (0.00-0.031); Immature Granulocyte Percent A 0.4 % (0-0.5); Lymphocytes Absolute Auto 1.87 K/mm3 (0.9-3.2); Lymphocytes Percent Auto 25.9 % (18.3-44.2); Mean Corpuscular HGB Conc 30.8 g/dl (32-36); Mean Corpuscular Hemoglobin 26.8 pg (26-34); Mean Corpuscular Volume 87.2 fl (80-100); Mean Platelet Volume 10.2 fl (7.4-10.4); Monocytes Absolute Auto 0.5 K/mm3 (0.1-0.6); Monocytes Percent Auto 6.6 % (2.6-8.5); Neutrophils Absolute Auto 4.7 K/mm3 (1.3-6.7); Neutrophils Percent Auto 65.6 % (45.5-73.1); Platelet Count Result 286 k/mm3 (150-375); Red Blood Count 3.58 M/mm3 (4.2-5.4); Red Cell Distribution Width 14.4 % (11.5-14.5); White Blood Count 7.2 K/mm3 (4.5-10.0)
[2022-09-27] MEDS: PANTOPRAZOLE SODIUM IV 40 MG VIAL IV PUSH (08:26)
[2022-09-27 11:32] LABS: Glucose Point of Care 95 mg/dl (65-105)
[2022-09-27] MEDS: DEXTROSE 5%/0.9% SOD CHL 1,000 ML 70 ML IV CONT (11:48)
--- NOTE | 2022-09-27 13:37 | WPDGICN ---
Assessment and Plan Assessment and plan (1) Acute lower GI bleeding: Code(s): K92.2 - Gastrointestinal hemorrhage, unspecified Status: Acute Assessment and Plan: will monitor since she needs to continue to be on anticoagulation and noted drop on hgb, will proceed with egd and colonoscopy tomorrow (2) Abnormal CT scan, esophagus: Code(s): R93.3 - Abnormal findings on diagnostic imaging of other parts of digestive tract Status: Acute Assessment and Plan: possible esophagitis will do egd in am (3) Nausea and vomiting in adult: Code(s): R11.2 - Nausea with vomiting, unspecified Status: Acute Assessment and Plan: after cardioversion, also has been lightheaded cardiology to see (4) Chronic anticoagulation: Code(s): 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 Status: Acute (5) A-fib: Qualifiers: Atrial fibrillation type: unspecified chronic Qualified Code(s): I48.20 - Chronic atrial fibrillation, unspecified Code(s): I48.91 - Unspecified atrial fibrillation Status: Acute (6) History of cardioversion: Code(s): Z92.89 - Personal history of other medical treatment Status: Acute GI Consult Note Consult date/time: 09/27/22 13:37 Reason for consult: nausea, epigastric pain and blood in stools after cardioversion HPI: Kari Marrero is a 67 year old female with Afib on eliquis for at least 3 months for which had cardioversion 2 days ago as outpatient (initial cardioversion on July but then recurrent of Afib despite medical treatment and she was more symptomatic) then she was feeling sick with more nausea, vomiting, epigastric pain and then had diarrhea including some blood in her stool.?Today better but still some abdominal discomfort. She says that had EGD but many years ago when was diagnosed with duodenal ulcer, she is using aciphex daily. Had colonocopy but about 5 years ago. Hgb from 12 few months ago and today 9.6. She also has been feeling lightheaded since. CT scan showed possible esophagitis or gastritis. Review of Systems Constitutional: Constitutional: Reports fatigue Eyes: Eyes: Denies blurry vision ENT: Reports Normal hearing present Cardiovascular: Cardiovascular: Reports lightheadedness Respiratory: Respiratory: Denies cough Gastrointestinal: Gastrointestinal: Reports nausea and Reports vomiting Genitourinary: Genitourinary: Denies hematuria Musculoskeletal: Musculoskeletal: Denies back pain Integumentary/Breasts: Skin/Breast: Denies rash Neurologic: Denies Abnormal speech present Psychiatric: Psychiatric: Denies confusion [facility] Past Medical History Medical History (Updated 09/27/22 @ 13:45 by Ian Wood MD) Abnormal CT scan, esophagus Absence of gallbladder Anxiety Arthritis Asthma Chronic anticoagulation Chronic kidney disease Constipation Constipation COPD (chronic obstructive pulmonary disease) Diabetes Diverticulosis Fusion of joint GERD (gastroesophageal reflux disease) Headache Hematuria History of cardioversion History of multiple miscarriages Hyperlipidemia Hypertension Interstitial cystitis Kidney disease Liver hemangioma Migraines Nausea and vomiting in adult Obesity (BMI 30-39.9) PTSD (post-traumatic stress disorder) RLQ abdominal mass Skin cancer Thyroid disorder Ventral incisional hernia Surgical History Surgical History H/O arthroplasty 2007 joint arthroplasty (anchovy procedure) H/O hernia repair 2 hernia repairs 02/25/20 left inguinal and umbilical Spigelian hernia repair H/O removal of cyst H/O: hysterectomy 1990 History of carpal tunnel surgery History of cholecystectomy History of dilatation and curettage History of left knee replacement Hx of umbilical hernia repair Joint replaced Family History Family History Fa
--- NOTE | 2022-09-27 14:03 | PM.IMHP ---
H&P: HPI History of Present Illness Date/Time: 09/27/22 14:03 Chief Complaint: Gi bleed Narrative: Patient had cardioversion yesterday soon after that she felt, with nausea, vomiting, right-sided abdominal discomfort, and diarrhea including some blood in her stool. Pt has history of ulcer, hb is low today, pt is kept NPO for EGD and colonoscopy CT chest shows - Moderate esophagitis/gastritis. Review of Systems Review of Systems: Rectal bleeding and nausea PMFSH Past Medical History Medical History Abnormal CT scan, esophagus Absence of gallbladder Anxiety Arthritis Asthma Chronic anticoagulation Chronic kidney disease Constipation Constipation COPD (chronic obstructive pulmonary disease) Diabetes Diverticulosis Fusion of joint GERD (gastroesophageal reflux disease) Headache Hematuria History of cardioversion History of multiple miscarriages Hyperlipidemia Hypertension Interstitial cystitis Kidney disease Liver hemangioma Migraines Nausea and vomiting in adult Obesity (BMI 30-39.9) PTSD (post-traumatic stress disorder) RLQ abdominal mass Skin cancer Thyroid disorder Ventral incisional hernia Surgical History Surgical History H/O arthroplasty 2007 joint arthroplasty (anchovy procedure) H/O hernia repair 2 hernia repairs 02/25/20 left inguinal and umbilical Spigelian hernia repair H/O removal of cyst H/O: hysterectomy 1990 History of carpal tunnel surgery History of cholecystectomy History of dilatation and curettage History of left knee replacement Hx of umbilical hernia repair Joint replaced Family History Family History Father Hypertension Heart disease Cerebrovascular accident Mother Hypertension Depression Heart disease Cerebrovascular accident Breast cancer Sibling Hypertension Depression FH: kidney cancer Other Diabetes mellitus Hypertension Other Blood clotting disorder Social History Social History Smoking status: Never smoker Second hand tobacco smoke exposure: Yes Alcohol intake: never Substance use: never Substance use type: does not use Lack of Transportation: No Lack of Food: Never True Current Housing: I Have Housing Concerned About Future Housing: No Difficulty Paying Gas/Electric Bills: No Difficulty Paying for Meds: No Currently Unemployed: No Education: High School Diploma/GED Difficulty w/ Childcare or Family Care: No Living arrangements: with family Occupation/Education: retired Spiritual care concerns: No Meds Home Medications and Allergies Home Medications Medication Instructions Recorded Confirmed Type jyyynvn-bfhtydxpexfou-vlkqjjpx 250 0.5 tablet PO DAILY 06/07/21 09/27/22 History mg-250 mg-65 mg tablet (Excedrin Migraine) flash glucose scanning reader #1 ea 10/18/21 09/27/22 Rx (FreeStyle Preethi 14 Day [place]) vibegron 75 mg tablet (Gemtesa) 75 mg PO DAILY 10/18/21 09/27/22 History flash glucose sensor (FreeStyle #6 ea 11/29/21 09/27/22 Rx Preethi 14 Day Sensor kit) hydrochlorothiazide 25 mg tablet 25 mg PO DAILY #90 tabs 01/26/22 09/27/22 Rx levothyroxine 50 mcg tablet 50 mcg PO DAILY #90 tabs 01/26/22 09/27/22 Rx (Synthroid) lisinopril 20 mg tablet 20 mg PO DAILY #90 tabs 01/26/22 09/27/22 Rx lovastatin 40 mg tablet 40 mg PO QPM #90 tabs 01/26/22 09/27/22 Rx metformin 750 mg tablet,extended 750 mg PO DAILY #90 tabs 01/26/22 09/27/22 Rx release 24 hr rabeprazole 20 mg tablet,delayed 20 mg PO DAILY #90 tabs 01/26/22 09/27/22 Rx release sertraline 100 mg tablet (Zoloft) 100 mg PO DAILY #90 tabs 01/26/22 09/27/22 Rx esterified 1 tablet PO DAILY #90 tabs 02/09/22 09/27/22 Rx estrogens-methyltestosterone 1.25 mg-2.5 mg tablet aml
--- NOTE | 2022-09-27 15:44 | PM.CNCAR ---
Assessment and Plan Assessment and plan (1) Dizziness: Code(s): R42 - Dizziness and giddiness Status: Acute Assessment and Plan: Has dizziness when going from supine/sitting position to standing position. Sounds like orthostasis. Will check orthostatic vital signs. On review of her home medications, it appears that she is on 2 diuretics - Lasix and HCTZ. I am going to stop the HCTZ. 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 Her Eliquis is currently on hold due to acute GI bleed. Discussed with the patient that she is at risk for stroke due to her Eliquis being on hold since her cardioversion was done 09/25. Please resume Eliquis as soon as possible when safe from a GI standpoint. (3) Acute lower GI bleeding: Code(s): K92.2 - Gastrointestinal hemorrhage, unspecified Status: Acute Assessment and Plan: GI consulted. Planning for EGD and colonoscopy 09/28. (4) Hypertension associated with diabetes: Code(s): E11.59 - Type 2 diabetes mellitus with other circulatory complications; I15.2 - Hypertension secondary to endocrine disorders Status: Acute Assessment and Plan: On review of her home medications, it appears that she is on 2 diuretics - Lasix and HCTZ. I am going to stop the HCTZ. (5) A-fib: Qualifiers: Atrial fibrillation type: unspecified chronic Qualified Code(s): I48.20 - Chronic atrial fibrillation, unspecified Code(s): I48.91 - Unspecified atrial fibrillation Status: Acute Assessment and Plan: In sinus rhythm since cardioversion 09/25. Continue home Flecainide and Toprol dose. Needs to be on anticoagulation for stroke prophylaxis for atrial fibrillation, especially given her recent cardioversion on 09/25. Her Eliquis is currently on hold due to acute GI bleed. Discussed with the patient that she is at risk for stroke due to her Eliquis being on hold since her cardioversion was done 09/25. Please resume Eliquis as soon as possible when safe from a GI standpoint. History of Present Illness History of Present Illness Consult date/time: 09/27/22 15:44 Requesting physician: Ian Wood MD Consult reason: Other (Dizziness) Reason For Visit: LGIB/Gastritis Narrative: We are consulted for dizziness. This is a 67-year-old female who follows with Dr. Blake in clinic. She recently underwent elective electrical cardioversion for atrial fibrillation on Monday 09/25. She was successfully cardioverted to sinus rhythm. Patient reports that shortly after the cardioversion, she got chest discomfort, abdominal discomfort, diarrhea with large amounts of blood in her stool. She has also been having dizziness when she gets up. Given this, patient presented to [place] [facility] for further evaluation. Hgb noted to be 9.6, was 12 a few months ago. EKG with sinus bradycardia. She is scheduled to undergo EGD and colonoscopy with GI tomorrow. Review of Systems Review of Systems: All systems reviewed & are unremarkable except as noted in HPI and below (HPI) PMFSH Past Medical History Medical History Abnormal CT scan, esophagus Absence of gallbladder Anxiety Arthritis Asthma Chronic anticoagulation Chronic kidney disease Constipation Constipation COPD (chronic obstructive pulmonary disease) Diabetes Diverticulosis Fusion of joint GERD (gastroesophageal reflux disease) Headache Hematuria History of cardioversion History of multiple miscarriages Hyperlipidemia Hypertension Interstitial cystitis Kidney disease Liver hemangioma Migraines Nausea and vomiting in adult Obesity (BMI 30-39.9) PTSD (post-traumatic stress disorder) RLQ abdominal mass Skin cancer Thyroid disorde
[2022-09-27 16:45] LABS: Glucose Point of Care 124 mg/dl (65-105)
[2022-09-27 17:30] LABS: Hemoglobin A1C 6.2 % (<5.7)
[2022-09-27] MEDS: LOVASTATIN 20 MG TABLET 40 MG PO (18:28)
[2022-09-27] MEDS: polyethylene glycoL 3350 238 GM BOTTLE PO (18:28)
[2022-09-27] MEDS: BISACODYL 5 MG TABLET EC 20 MG PO (18:30)
[2022-09-27 20:50] LABS: Glucose Point of Care 196 mg/dl (65-105)
[2022-09-28] VITALS (18 sets, daily range): BP systolic 88–135; BP diastolic 56–84; PULSE 47–79; RESP 16–18; TEMP 36.2–36.7; O2SAT 94–100
[2022-09-28] MEDS: DEXTROSE 5%/0.9% SOD CHL 1,000 ML 70 ML IV CONT (05:16)
[2022-09-28] MEDS: LEVOTHYROXINE SODIUM 50 MCG TABLET PO (05:35)
[2022-09-28 07:43] LABS: Glucose Point of Care 106 mg/dl (65-105)
[2022-09-28] MEDS: lisinopriL 20 MG TABLET PO (09:10)
[2022-09-28] MEDS: POTASSIUM CHLORIDE 20 MEQ ER TABLET PO ×2 (09:10→21:08)
[2022-09-28] MEDS: METOPROLOL SUCCINATE EXT REL 50 MG TABCR PO (09:10)
[2022-09-28] MEDS: amLODIPine BESYLATE 5 MG TABLET 10 MG PO (09:10)
[2022-09-28] MEDS: FUROSEMIDE 20 MG TABLET PO (09:10)
[2022-09-28] MEDS: SERTRALINE HCL 50 MG TABLET 100 MG PO (09:10)
[2022-09-28] MEDS: PANTOPRAZOLE SODIUM IV 40 MG VIAL IV PUSH (09:11)
[2022-09-28] MEDS: FLECAINIDE ACETATE 100 MG TABLET PO (09:11)
[2022-09-28] MEDS: LACTATED RINGERS 1,000 ML 150 ML IV CONT (11:28)
[2022-09-28 11:30] LABS: Glucose Point of Care 109 mg/dl (65-105)
--- NOTE | 2022-09-28 11:45 | WPDANESEPPF ---
Anes - Initial Pre Proc Eval Procedure: Operation Date: 09/28/22 11:45 Proposed Procedures p Esophagogastroduodenoscopy & Colonoscopy - Ian Wood MD Date/Time: 09/28/22 11:45 Surgeon: Marci Jordan DO Pre Op Diagnosis: LGIB/Gastritis Patient Data Age: 67 Gender: F Height: 1.6 m Weight: 85.9 kg Last Vital Signs Temp 97.3 F L 09/28/22 11:25 Pulse 53 L 09/28/22 11:25 Resp 18 09/28/22 11:25 BP 135/76 09/28/22 11:25 Pulse Ox 98 09/28/22 11:25 O2 Del Method Room Air 09/28/22 11:25 Allergies Allergy/AdvReac Type Severity Reaction Status Date / Time fentanyl Allergy CARDIAC Verified 09/26/22 20:07 ARREST niacin Allergy Hives Verified 09/26/22 20:07 amoxicillin [From Augmentin] AdvReac Vomiting Verified 09/26/22 20:07 clavulanic acid AdvReac Vomiting Verified 09/26/22 20:07 [From Augmentin] codeine AdvReac Vomiting Verified 09/26/22 20:07 Home Medications Medication Instructions Recorded Confirmed Type doqyupy-jculywnlejzcl-toouatdq 250 0.5 tablet PO DAILY 06/07/21 09/27/22 History mg-250 mg-65 mg tablet (Excedrin Migraine) flash glucose scanning reader #1 ea 10/18/21 09/27/22 Rx (FreeStyle Preethi 14 Day [place]) vibegron 75 mg tablet (Gemtesa) 75 mg PO DAILY 10/18/21 09/27/22 History flash glucose sensor (FreeStyle #6 ea 11/29/21 09/27/22 Rx Preethi 14 Day Sensor kit) hydrochlorothiazide 25 mg tablet 25 mg PO DAILY #90 tabs 01/26/22 09/27/22 Rx levothyroxine 50 mcg tablet 50 mcg PO DAILY #90 tabs 01/26/22 09/27/22 Rx (Synthroid) lisinopril 20 mg tablet 20 mg PO DAILY #90 tabs 01/26/22 09/27/22 Rx lovastatin 40 mg tablet 40 mg PO QPM #90 tabs 01/26/22 09/27/22 Rx metformin 750 mg tablet,extended 750 mg PO DAILY #90 tabs 01/26/22 09/27/22 Rx release 24 hr rabeprazole 20 mg tablet,delayed 20 mg PO DAILY #90 tabs 01/26/22 09/27/22 Rx release sertraline 100 mg tablet (Zoloft) 100 mg PO DAILY #90 tabs 01/26/22 09/27/22 Rx esterified 1 tablet PO DAILY #90 tabs 02/09/22 09/27/22 Rx estrogens-methyltestosterone 1.25 mg-2.5 mg tablet amlodipine 10 mg tablet 10 mg PO DAILY #90 tabs 02/28/22 09/27/22 Rx apixaban 5 mg tablet (Eliquis) 5 mg PO BID 06/01/22 09/27/22 History erenumab-aooe 140 mg/mL 140 mg subcut MONTHLY #4 mL 06/01/22 09/27/22 Rx subcutaneous auto-injector (Aimovig Autoinjector) albuterol sulfate 90 mcg/actuation 1 inh inhalation Q4H PRN Allergic 07/14/22 09/27/22 History aerosol inhaler Symptoms metoprolol succinate 50 mg 50 mg PO DAILY 07/14/22 09/27/22 History tablet,extended release 24 hr flecainide 100 mg tablet 100 mg PO BID 09/22/22 09/27/22 History furosemide 20 mg tablet 20 mg PO DAILY 09/22/22 09/27/22 History potassium chloride 20 mEq 20 meq PO DAILY 09/22/22 09/27/22 History tablet,extended release(part/cryst) (Klor-Con M) polyethylene glycol 3350 17 gram 17 g PO DAILY 09/27/22 09/27/22 History oral powder packet (Miralax) Laboratory Tests 09/27/22 09/27/22 09/27/22 05:46 16:28 20:44 POC Capillary Glucose 124 H mg/dl 196 H mg/dl (65-105) (65-105) Hemoglobin A1c 6.2 H % (<5.7) 09/28/22 09/28/22 07:40 11:26 POC Capillary Glucose 106 H mg/dl 109 H mg/dl (65-105) (65-105) Hemoglobin A1c Patient hx anesthesia problems: none Family hx anesthesia problems: none Results Review: All pre-operative results and documents have been reviewed as part of the pre-operative evaluation. [facility] Past Medical History Medical History Abnormal CT scan, esophagus Absence of gallbladder Anxiety Arthritis Asthma Chronic anticoagulation Chronic kidney disease Constipation Constipation COPD (chronic obstructive pulmonary disease) Diabetes Diverticulosis Fusion of joint GERD (gastroesophageal reflux disease) Headache Hematuria History of cardioversion History of multiple miscarriages Hyp
--- NOTE | 2022-09-28 12:20 | SUR.OPER ---
EGD: [id number] COLON: Start 1220
--- NOTE | 2022-09-28 12:51 | PM.IMPN ---
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 Status: Acute Assessment and Plan: Pt needs to be on OAC hold for procedure (2) History of cardioversion: Code(s): Z92.89 - Personal history of other medical treatment Status: Acute Assessment and Plan: Pt converted to NSR successful cardioversion (3) Esophagitis: Code(s): K20.90 - Esophagitis, unspecified without bleeding Status: Acute Assessment and Plan: Pt needs urgent egd and colonoscopy GI on board pt to have scopes today (4) Acute lower GI bleeding: Code(s): K92.2 - Gastrointestinal hemorrhage, unspecified Status: Acute Assessment and Plan: Continue iv Protonix (5) Hypertension associated with diabetes: Code(s): E11.59 - Type 2 diabetes mellitus with other circulatory complications; I15.2 - Hypertension secondary to endocrine disorders Status: Acute Assessment and Plan: Accuchecks, order ssi order DM diet after procedure (6) Morbid obesity: Code(s): E66.01 - Morbid (severe) obesity due to excess calories Status: Acute Assessment and Plan: Chronic problem Plan VTE: SCD Subjective Date/time seen: 09/28/22 12:51 Interval history: Pt has history of ulcer, hb is low today, pt is kept NPO for EGD and colonoscopy CT chest shows -?Moderate esophagitis/gastritis. Pt going for EGD and colonoscopy today Pt seen by GI and cardiology Pt had recent cardioversion must stay on OAC. Review of Systems Review of Systems: Recent rectal bleed Exam Const: General: cooperative, healthy appearing and overweight; No in distress Nutritional Appearance: overweight Orientation/consciousness: oriented to person HENMT: Head: normal to inspection Resp: Effort & Inspection: no respiratory distress Auscultation: no rhonchi and no wheezes Cardio: Rate: regular rate Rhythm: regular rhythm GI: Inspection: normal to inspection Auscultation: normal bowel sounds Neuro: General: oriented to person Objective Data Vital Signs Vital Signs: Vital Signs - 24 hr 09/27/22 14:00 09/27/22 16:02 09/27/22 16:03 Temperature 37.3 C Pulse Rate 52 L 51 L 55 L Respiratory Rate 18 Blood Pressure 126/70 126/69 120/70 Pulse Oximetry 94 93 96 Oxygen Delivery Oxygen Flow Rate 09/27/22 16:03 09/27/22 22:03 09/27/22 22:25 Temperature 36.4 C L Pulse Rate 53 L 51 L 48 L Respiratory Rate 16 Blood Pressure 126/68 125/54 L Pulse Oximetry 95 96 Oxygen Delivery Oxygen Flow Rate 09/28/22 00:00 09/28/22 04:00 09/28/22 05:42 Temperature 36.4 C L Pulse Rate 50 L 51 L 51 L Respiratory Rate 16 Blood Pressure 127/78 Pulse Oximetry 96 Oxygen Delivery Oxygen Flow Rate 09/28/22 08:21 09/28/22 09:10 09/28/22 09:11 Temperature Pulse Rate 52 L 52 L 52 L Respiratory Rate Blood Pressure Pulse Oximetry 95 Oxygen Delivery Room Air Oxygen Flow Rate 09/28/22 11:25 09/28/22 08:00 09/28/22 12:33 Temperature 36.3 C L Pulse Rate 53 L 50 L Respiratory Rate 18 18 Blood Pressure 135/76 99/56 L Pulse Oximetry 98 100 Oxygen Delivery Room Air Room Air Nasal Cannula Oxygen Flow Rate 4 09/28/22 12:43 Temperature Pulse Rate 50 L Respiratory Rate 18 Blood Pressure 88/64 L Pulse Oximetry 94 Oxygen Delivery Room Air Oxygen Flow Rate Intake/Output Intake/Output: Intake & Output 09/25/22 09/26/22 09/27/22 09/28/22 23:59 23:59 23:59 23:59 Intake Total 1390 1225 Output Total 300 500 Balance 1090 725 Meds/Results Medications: Active Medications Generic Name Dose Route Start Last Admin Trade Name Myra PRN Reason Stop Dose Admin Acetaminophen/Aspirin/Caffeine 0.5 tablet 09/28/22 09:00 09/28/22 12:32 Acetaminophen/Aspirin/Caffeine 250-250-65 Mg Tablet PO Not Given DAILY JOSÉ Alb
[2022-09-28 16:39] LABS: Glucose Point of Care 194 mg/dl (65-105)
[2022-09-28] MEDS: LOVASTATIN 20 MG TABLET 40 MG PO (17:33)
[2022-09-28] MEDS: ONDANSETRON INJ 4 MG/2 ML VIAL IV PUSH (17:38)
[2022-09-28 19:54] LABS: Potassium 3.2 mmol/L (3.4-5.0)
[2022-09-28 20:42] LABS: Glucose Point of Care 131 mg/dl (65-105)
[2022-09-28] MEDS: ACETAMINOPHEN 325 MG TABLET 650 MG PO (21:09)
[2022-09-28] MEDS: APIXABAN 5 MG TABLET PO (21:09)
[2022-09-29] VITALS (11 sets, daily range): BP systolic 117–123; BP diastolic 64–77; PULSE 39–78; RESP 13–20; TEMP 36.2–37.1; O2SAT 95–99
[2022-09-29] MEDS: LEVOTHYROXINE SODIUM 50 MCG TABLET PO (05:33)
[2022-09-29 07:44] LABS: Glucose Point of Care 122 mg/dl (65-105)
[2022-09-29] MEDS: amLODIPine BESYLATE 5 MG TABLET 10 MG PO (08:23)
[2022-09-29] MEDS: SERTRALINE HCL 50 MG TABLET 100 MG PO (08:24)
[2022-09-29] MEDS: POTASSIUM CHLORIDE 20 MEQ ER TABLET PO (08:24)
[2022-09-29] MEDS: METOPROLOL SUCCINATE EXT REL 50 MG TABCR PO (08:24)
[2022-09-29] MEDS: PANTOPRAZOLE 40 MG TABLET PO (08:24)
[2022-09-29] MEDS: lisinopriL 20 MG TABLET PO (08:24)
[2022-09-29] MEDS: APIXABAN 5 MG TABLET PO ×2 (08:24→21:41)
[2022-09-29] MEDS: FUROSEMIDE 20 MG TABLET PO (08:24)
[2022-09-29] MEDS: FLECAINIDE ACETATE 100 MG TABLET PO (08:24)
[2022-09-29] MEDS: ACETAMINOPHEN/ASPIRIN/CAFFEINE 250-250-65 MG TABLET 0.5 TABLET PO (08:25)
--- NOTE | 2022-09-29 09:39 | PM.IMPN ---
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 Status: Acute Assessment and Plan: Pt needs to be on OAC restarted today aflutter noted, flecainide d/c (2) History of cardioversion: Code(s): Z92.89 - Personal history of other medical treatment Status: Acute Assessment and Plan: Pt converted to NSR, successful cardioversion (3) Esophagitis: Code(s): K20.90 - Esophagitis, unspecified without bleeding Status: Acute Assessment and Plan: s/p EGD/ colonoscopy (4) Acute lower GI bleeding: Code(s): K92.2 - Gastrointestinal hemorrhage, unspecified Status: Acute Assessment and Plan: Continue iv Protonix (5) Hypertension associated with diabetes: Code(s): E11.59 - Type 2 diabetes mellitus with other circulatory complications; I15.2 - Hypertension secondary to endocrine disorders Status: Acute Assessment and Plan: Accuchecks, order ssi order DM diet (6) Morbid obesity: Code(s): E66.01 - Morbid (severe) obesity due to excess calories Status: Acute Assessment and Plan: Chronic problem Plan DVT prophylaxis with eliquis GI prophylaxis not indicated Code status full code Subjective Date/time seen: 09/29/22 09:39 Interval history: No overnight events noted. No chest pain or shortness of breath. No nausea, vomiting or diarrhea. No fevers or chills. Patient did have an episode of tachycardia this morning that she was asymptomatic from. Review of Systems Review of Systems: 12 point review of systems was assessed and was negative except as noted in the HPI Exam Narrative: General: No acute distress, alert and oriented per baseline HEENT: Atraumatic, normocephalic, mucous membranes moist CV: Regular rate and rhythm, S1, S2 Lungs: Clear to auscultation bilaterally, no rales or crackles noted, no wheezes, good air entry Abdomen: Soft, nontender, nondistended Extremities: Normal to inspection Skin: No rashes noted, no lesions or wounds seen Psych: Euthymic, normal affect Objective Data Vital Signs Vital Signs: Vital Signs - 24 hr 09/28/22 11:25 09/28/22 12:33 09/28/22 12:43 Temperature 97.3 F L Pulse Rate 53 L 50 L 50 L Respiratory Rate 18 18 18 Blood Pressure 135/76 99/56 L 88/64 L Pulse Oximetry 98 100 94 Oxygen Delivery Room Air Nasal Cannula Room Air Oxygen Flow Rate 4 09/28/22 12:53 09/28/22 14:00 09/28/22 16:00 Temperature 98.1 F Pulse Rate 49 L 57 L 60 Respiratory Rate 17 18 Blood Pressure 95/58 L 122/74 Pulse Oximetry 94 94 Oxygen Delivery Room Air Oxygen Flow Rate 09/28/22 18:26 09/28/22 20:20 09/28/22 21:07 Temperature 97.2 F L Pulse Rate 54 L 79 57 L Respiratory Rate 16 16 Blood Pressure 130/84 121/62 122/70 Pulse Oximetry 96 97 Oxygen Delivery Oxygen Flow Rate 09/28/22 21:39 09/28/22 20:00 09/29/22 00:00 Temperature Pulse Rate 47 L 47 L 46 L Respiratory Rate Blood Pressure Pulse Oximetry Oxygen Delivery Oxygen Flow Rate 09/29/22 04:08 09/29/22 04:00 09/29/22 05:27 Temperature 97.2 F L Pulse Rate 39 L 40 L 44 L Respiratory Rate 16 Blood Pressure 118/64 Pulse Oximetry 95 Oxygen Delivery Oxygen Flow Rate 09/29/22 08:24 09/29/22 08:24 09/29/22 08:00 Temperature Pulse Rate 76 78 Respiratory Rate Blood Pressure Pulse Oximetry Oxygen Delivery Room Air Oxygen Flow Rate Intake/Output Intake/Output: Intake & Output 09/26/22 09/27/22 09/28/22 09/29/22 23:59 23:59 23:59 23:59 Intake Total 1390 1845 240 Output Total 300 500 Balance 1090 1345 240 Meds/Results Medications: Active Medications Generic Name Dose Route Start Last Admin Trade Name Freq PRN Reason Stop Dose Admin Acetaminophen 650 mg 09/28/22 20:12 09/28/22 21:09 Acetaminophen 325 Mg Tab
[2022-09-29 11:33] LABS: Glucose Point of Care 118 mg/dl (65-105)
--- NOTE | 2022-09-29 13:10 | PHAR ---
THE FOLLOWING HOME MEDS HAVE BEEN VERIFIED BY PHARMACY: GEMTASA 75 MG METFORMIN ER 750 MG
--- NOTE | 2022-09-29 14:31 | PM.PNCARD ---
Progress Note: A&P Assessment and Plan (1) A-fib: Qualifiers: Atrial fibrillation type: unspecified chronic Qualified Code(s): I48.20 - Chronic atrial fibrillation, unspecified Code(s): I48.91 - Unspecified atrial fibrillation Status: Acute Plan 67-year-old lady with history of atrial fibrillation with recent repeat cardioversion being started with flecainide in hopes of maintaining sinus rhythm. Cardioversion before that resulted in early recurrence of AF. We now also has a diagnosis of atrial flutter is very concerning rapid one-to-one conduction likely a consequence of flecainide treatment. This needs to be discontinued and the patient needs to be kept in the hospital until this stabilizes. Femi Blake MD [facility] Subjective Date/time seen: Date of service: 09/29/22 14:31 Interval history: Follow-up visit in this 67-year-old woman with: Persistent atrial fibrillation status post recent DC cardioversion and treated medically with flecainide in hopes of maintaining sinus rhythm. Patient was admitted here earlier during this hospitalization with GI bleeding and has been therefore taken off of his Xarelto. Feels reasonably well this afternoon but reports episodes of sudden very rapid tachycardia. Review of her telemetry demonstrates episodes of atrial flutter with what appears to be one-to-one conduction heart rate over 250 beats per minute that would last for about 30 to seconds. One episode of this last evening and another episode early this morning. Discussed with the patient's this is likely result of her flecainide permitting 1-1 conduction with flutter. We did not have a diagnosis of atrial flutter before this incident. Exam Const: General: comfortable and no acute distress HENMT: Mouth: Yes moist mucous membranes Eyes: Sclera: sclerae normal Neck: Neck: supple and no JVD Resp: Effort & Inspection: normal respiratory effort Auscultation: clear to auscultation bilaterally Cardio: Rate: regular rate and bradycardic Rhythm: regular rhythm GI: GI Palp: Yes Soft to palpation Auscultation: normal bowel sounds Skin: General skin exam: normal color Neuro: Other: Alert and oriented x3 Extrem: Other: No edema, good distal pulses Objective Data Vital Signs Vital Signs: Vital Signs - 24 hr 09/28/22 16:00 09/28/22 18:26 09/28/22 20:20 Temperature 36.2 C L Pulse Rate 60 54 L 79 Respiratory Rate 16 Blood Pressure 130/84 121/62 Pulse Oximetry 96 Oxygen Delivery 09/28/22 21:07 09/28/22 21:39 09/28/22 20:00 Temperature Pulse Rate 57 L 47 L 47 L Respiratory Rate 16 Blood Pressure 122/70 Pulse Oximetry 97 Oxygen Delivery 09/29/22 00:00 09/29/22 04:08 09/29/22 04:00 Temperature Pulse Rate 46 L 39 L 40 L Respiratory Rate Blood Pressure Pulse Oximetry Oxygen Delivery 09/29/22 05:27 09/29/22 08:24 09/29/22 08:24 Temperature 36.2 C L Pulse Rate 44 L 76 78 Respiratory Rate 16 Blood Pressure 118/64 Pulse Oximetry 95 Oxygen Delivery 09/29/22 08:00 09/29/22 08:00 09/29/22 13:52 Temperature 36.8 C Pulse Rate 48 L 45 L Respiratory Rate 20 Blood Pressure 123/72 Pulse Oximetry 99 Oxygen Delivery Room Air Intake/Output Intake/Output: Intake & Output 09/26/22 09/27/22 09/28/22 09/29/22 23:59 23:59 23:59 23:59 Intake Total 1390 1845 476 Output Total 300 500 Balance 1090 1345 476 Meds/Results Medications: Active Medications Generic Name Dose Route Start Last Admin Trade Name Freq PRN Reason Stop Dose Admin Acetaminophen 650 mg 09/28/22 20:12 09/28/22 21:09 Acetaminophen 325 Mg Tablet PO 650 mg Q4H PRN Administration Pain Rated 1-3 Acetaminophen/Aspirin/Caffeine 0.5 tablet 09/28/22 09:00 09/29/22 08:25 Acetaminophen/Aspirin/Caffeine 250-250-65 Mg Tablet PO 0.5 tablet DAILY JOSÉ Administration Albuterol 1 puff 09/27/22 14:30 A
[2022-09-29 16:43] LABS: Glucose Point of Care 97 mg/dl (65-105)
[2022-09-29] MEDS: LOVASTATIN 20 MG TABLET 40 MG PO (17:03)
[2022-09-29] MEDS: ACETAMINOPHEN 325 MG TABLET 650 MG PO (18:27)
[2022-09-29 19:58] LABS: Glucose Point of Care 113 mg/dl (65-105)
[2022-09-29] MEDS: CALCIUM CARBONATE (TUMS) 500 MG (200 MG ELEMENTAL) PO (23:23)
[2022-09-30] VITALS (12 sets, daily range): BP systolic 127–130; BP diastolic 69–81; PULSE 41–54; RESP 14–18; TEMP 35.9–36.9; O2SAT 94–96
[2022-09-30] MEDS: LEVOTHYROXINE SODIUM 50 MCG TABLET PO (05:53)
[2022-09-30 07:33] LABS: Glucose Point of Care 84 mg/dl (65-105)
[2022-09-30 08:43] LABS: Basophils Percent Auto 0.7 % (0.2-1.2); Eosinophils Absolute Auto 0.2 K/mm3 (0-0.3); Eosinophils Percent Auto 3.3 % (0-4.4); Hematocrit 31.8 % (37.0-47.0); Hemoglobin 9.6 g/dL (12.0-15.0); Immature Granulocyte Absolute 0.01 K/mm3 (0.00-0.031); Immature Granulocyte Percent A 0.2 % (0-0.5); Lymphocytes Percent Auto 23.3 % (18.3-44.2); Mean Corpuscular HGB Conc 30.2 g/dl (32-36); Mean Corpuscular Hemoglobin 26.7 pg (26-34); Mean Corpuscular Volume 88.3 fl (80-100); Monocytes Absolute Auto 0.4 K/mm3 (0.1-0.6); Monocytes Percent Auto 6.8 % (2.6-8.5); Neutrophils Absolute Auto 3.9 K/mm3 (1.3-6.7); Neutrophils Percent Auto 65.7 % (45.5-73.1); Platelet Count Result 234 k/mm3 (150-375); Red Cell Distribution Width 14.9 % (11.5-14.5)
[2022-09-30 08:52] LABS: Alanine Aminotransferase 17 U/L (6-35); Albumin Level 3.7 g/dL (3.5-5.1); Alkaline Phosphatase 69 U/L (38-126); Anion Gap 4 mmol/L (8-16); Aspartate Amino Transferase 26 U/L (14-36); Bilirubin,Total 0.3 mg/dL (0.2-1.3); Blood Urea Nitrogen 18 mg/dL (7-17); Calcium 8.4 mg/dL (8.4-10.2); Carbon Dioxide 30 mmol/L (22-30); Chloride 105 mmol/L (98-107); Estimated CRCL calculation 40 ml/min; Estimated Glomerular Filt Rate 41; Glucose 89 mg/dL (65-110); Potassium 3.6 mmol/L (3.4-5.0); Sodium 139 mmol/L (137-145)
[2022-09-30 09:12] LABS: Magnesium 1.9 mg/dL (1.6-2.3); Phosphorus 3.3 mg/dL (2.5-4.5)
[2022-09-30] MEDS: POTASSIUM CHLORIDE 20 MEQ ER TABLET PO (09:16)
[2022-09-30] MEDS: SERTRALINE HCL 50 MG TABLET 100 MG PO (09:16)
[2022-09-30] MEDS: APIXABAN 5 MG TABLET PO ×2 (09:16→20:13)
[2022-09-30] MEDS: FUROSEMIDE 20 MG TABLET PO (09:16)
[2022-09-30] MEDS: lisinopriL 20 MG TABLET PO (09:17)
[2022-09-30] MEDS: PANTOPRAZOLE 40 MG TABLET PO ×2 (09:17→20:13)
[2022-09-30] MEDS: amLODIPine BESYLATE 5 MG TABLET 10 MG PO (09:17)
[2022-09-30] MEDS: polyethylene glycoL 3350 17 GM POWD.PACK PO (09:21)
[2022-09-30] MEDS: ACETAMINOPHEN/ASPIRIN/CAFFEINE 250-250-65 MG TABLET 0.5 TABLET PO (09:37)
--- NOTE | 2022-09-30 11:20 | PM.IMPN ---
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 Status: Acute Assessment and Plan: Pt needs to be on OAC restarted 09/29, aflutter noted, flecainide d/c 09/30: still in intermittent atrial flutter, defer management to cardiology (2) History of cardioversion: Code(s): Z92.89 - Personal history of other medical treatment Status: Acute Assessment and Plan: Pt converted to NSR, successful cardioversion Has since flipped into atrial flutter intermittently Will likely need to be transferred for ablation and further EP evaluation, defer management to Cardiology (3) Esophagitis: Code(s): K20.90 - Esophagitis, unspecified without bleeding Status: Acute Assessment and Plan: s/p EGD/ colonoscopy (4) Acute lower GI bleeding: Code(s): K92.2 - Gastrointestinal hemorrhage, unspecified Status: Acute Assessment and Plan: Continue iv Protonix (5) Hypertension associated with diabetes: Code(s): E11.59 - Type 2 diabetes mellitus with other circulatory complications; I15.2 - Hypertension secondary to endocrine disorders Status: Acute Assessment and Plan: Accuchecks, order ssi order DM diet (6) Morbid obesity: Code(s): E66.01 - Morbid (severe) obesity due to excess calories Status: Acute Assessment and Plan: Chronic problem Plan DVT prophylaxis with eliquis GI prophylaxis not indicated Code status full code Subjective Date/time seen: 09/30/22 11:20 Interval history: No overnight events noted. No chest pain or shortness of breath. No nausea, vomiting or diarrhea. No fevers or chills. Patient unchanged from yesterday. Heart rate jumped back up into the 200s when she went to the bathroom again. She was essentially asymptomatic. Review of Systems Review of Systems: 12 point review of systems was assessed and was negative except as noted in the HPI Exam Narrative: General: No acute distress, alert and oriented per baseline HEENT: Atraumatic, normocephalic, mucous membranes moist CV: Bradycardic, s1, S2 Lungs: Clear to auscultation bilaterally, no rales or crackles noted, no wheezes, good air entry Abdomen: Soft, nontender, nondistended Extremities: Normal to inspection Skin: No rashes noted, no lesions or wounds seen Psych: Euthymic, normal affect Objective Data Vital Signs Vital Signs: Vital Signs - 24 hr 09/29/22 13:52 09/29/22 12:00 09/29/22 16:00 Temperature 98.3 F Pulse Rate 45 L 44 L 46 L Respiratory Rate 20 Blood Pressure 123/72 Pulse Oximetry 99 Oxygen Delivery 09/29/22 21:19 09/29/22 20:00 09/30/22 00:00 Temperature 98.7 F Pulse Rate 46 L 46 L 54 L Respiratory Rate 13 Blood Pressure 117/77 Pulse Oximetry 97 Oxygen Delivery 09/30/22 04:00 09/30/22 05:27 09/30/22 09:14 Temperature 98.5 F Pulse Rate 41 L 49 L 46 L Respiratory Rate 14 Blood Pressure 130/69 Pulse Oximetry 94 Oxygen Delivery Room Air 09/30/22 09:28 Temperature Pulse Rate 46 L Respiratory Rate Blood Pressure Pulse Oximetry Oxygen Delivery Intake/Output Intake/Output: Intake & Output 09/27/22 09/28/22 09/29/22 09/30/22 23:59 23:59 23:59 23:59 Intake Total 1390 1845 956 740 Output Total 300 500 Balance 1090 1345 956 740 Meds/Results Medications: Active Medications Generic Name Dose Route Start Last Admin Trade Name Myra PRN Reason Stop Dose Admin Acetaminophen 650 mg 09/28/22 20:12 09/29/22 18:27 Acetaminophen 325 Mg Tablet PO 650 mg Q4H PRN Administration Pain Rated 1-3 Acetaminophen/Aspirin/Caffeine 0.5 tablet 09/28/22 09:00 09/30/22 09:37 Acetaminophen/Aspirin/Caffeine 250-250-65 Mg Tablet PO 0.5 tablet DAILY JOSÉ Administration Albuterol 1 puff 09/27/22 14:30 Albuterol Sulfate (*Sp) Aerosol 1 Puff I
[2022-09-30 11:34] LABS: Glucose Point of Care 101 mg/dl (65-105)
--- NOTE | 2022-09-30 13:01 | ECG_ITS ---
Measurements Intervals [place] Rate: 47 P: 52 IL: 196 QRS: 42 QRSD: 98 T: 30 QT: 467 QTc: 413 Interpretive Statements SINUS BRADYCARDIA CONSIDER INFERIOR INFARCT, AGE INDETERMINATE NONSPECIFIC ST-T WAVE ABNORMALITY- ANTEROLAT/INF LEADS ABNORMAL ECG COMPARED TO ECG 09/26/2022 20:12:18 HEART RATE HAS DECREASED Electronically Signed On 09-30-2022 15:54:32 CDT by Alvin Beckford D.O.
[2022-09-30 16:27] LABS: Glucose Point of Care 91 mg/dl (65-105)
--- NOTE | 2022-09-30 16:55 | PM.PNCARD ---
Progress Note: A&P Assessment and Plan (1) Bradycardia: Code(s): R00.1 - Bradycardia, unspecified Status: Acute Assessment and Plan: Patient has persistent sinus bradycardia heart rates in the 40s early asymptomatic. She is hemodynamically stable, tolerating Toprol XL 50 mg daily. Flecainide has been discontinued. She agrees to tolerate bradycardic this time. We discussed this at length. I will not stop her Toprol-XL at this time unless she becomes symptomatic or develops high-grade AV block as discontinuation will increase risk for AFib recurrence. (2) A-fib: Qualifiers: Atrial fibrillation type: unspecified chronic Qualified Code(s): I48.20 - Chronic atrial fibrillation, unspecified Code(s): I48.91 - Unspecified atrial fibrillation Status: Acute Assessment and Plan: Patient maintaining sinus rhythm/bradycardia without recurrence of AFib this time. I spent a great deal time the patient and her family at bedside discussing previous mention concern with regards to atrial flutter with rapid ventricular response 1:1 conduction. I have extensively reviewed telemetry and these noted episodes. I took several tracings/pronounce of these reported arrhythmias and or events to the bedside and with a caliper went through all them demonstrating that these events are in fact not secondary to a supraventricular tachycardia but are artifactual in nature. I demonstrated however sinus bradycardia emerges in between these episodes concerning for a tachyarrhythmia without any disruption in the rate and the fact that you can appreciate QRS complexes marching through the tachyarrhythmia without disruption. I demonstrated this and discussed this concept of artifact versus real arrhythmia. I answered any and all questions they had. They expressed their great appreciation for the amount of time he spent at bedside with him explaining all these findings investigating the nature of her symptoms. As such, I agreed with Dr. Blake's decision to discontinue flecainide particularly in light of her bradycardia and given her reported symptoms and supposedly association with this very rapid narrow complex finding on telemetry. However, it is my firm conclusion that these events in fact are not real and artifactual nature. Nonetheless I will not plan to resume flecainide at this time unless she has recurrence of AFib with RVR or other true tachyarrhythmia. (3) Esophagitis: Code(s): K20.90 - Esophagitis, unspecified without bleeding Status: Acute Assessment and Plan: Continue management per GI and primary service. Monitor for bleeding. She remains on systemic anticoagulation with Eliquis 5 mg twice daily due to recent cardioversion and increased embolic stroke risk if Eliquis were discontinued. This must be balance with bleeding risk particularly of ongoing evidence of bleeding is persistent and or decline in H&H. Continue pantoprazole 40 mg daily. (4) Chest pain: Code(s): R07.9 - Chest pain, unspecified Status: Acute Assessment and Plan: With regards to the nature of her exertional chest pain I believe this is either GI or musculoskeletal nature. We discussed the potential this may be anginal yet this comes on with minimal activity and resolves promptly with rest and is also brought on with certain rotation of position change. She otherwise feels well and has no symptoms at rest and feels just fine. Her ECG is normal the exception bradycardia without ischemic changes. We discussed at great length the possibility although unlikely contribution from severe obstructive CAD given the circumstances. We will continue to monitor clinically and continue telemetry for the time being. Patient and her verbalized understanding and agreed with plan of care. Further recommendations to follow. Discussed as she will need to remain hospitalized for further observation, improvement response to t
[2022-09-30] MEDS: LOVASTATIN 20 MG TABLET 40 MG PO (17:26)
--- NOTE | 2022-09-30 18:30 | PC.NURSE ---
Pt is A&O4 female who has participated and contributed in plan of care. Pt is compliant with care and tolerating treatment well. Pt does not have any reports of pain and expresses no needs at this time. Will continue to monitor pt.
[2022-09-30 20:38] LABS: Glucose Point of Care 101 mg/dl (65-105)
[2022-10-01] VITALS (13 sets, daily range): BP systolic 123–135; BP diastolic 69–75; PULSE 46–64; RESP 16–20; TEMP 36.4–36.6; O2SAT 95–98
[2022-10-01 05:48] LABS: Basophils Absolute Auto 0.1 K/mm3 (0.0-0.1); Eosinophils Absolute Auto 0.2 K/mm3 (0-0.3); Eosinophils Percent Auto 3.3 % (0-4.4); Hematocrit 31.3 % (37.0-47.0); Hemoglobin 9.6 g/dL (12.0-15.0); Immature Granulocyte Absolute 0.02 K/mm3 (0.00-0.031); Immature Granulocyte Percent A 0.4 % (0-0.5); Lymphocytes Absolute Auto 1.55 K/mm3 (0.9-3.2); Lymphocytes Percent Auto 29.6 % (18.3-44.2); Mean Corpuscular HGB Conc 30.7 g/dl (32-36); Mean Corpuscular Volume 87.9 fl (80-100); Mean Platelet Volume 9.6 fl (7.4-10.4); Monocytes Absolute Auto 0.4 K/mm3 (0.1-0.6); Monocytes Percent Auto 6.9 % (2.6-8.5); Neutrophils Absolute Auto 3.1 K/mm3 (1.3-6.7); Neutrophils Percent Auto 58.8 % (45.5-73.1); Platelet Count Result 227 k/mm3 (150-375); Red Blood Count 3.56 M/mm3 (4.2-5.4); Red Cell Distribution Width 14.8 % (11.5-14.5); White Blood Count 5.2 K/mm3 (4.5-10.0)
[2022-10-01 05:59] LABS: Alanine Aminotransferase 15 U/L (6-35); Albumin Level 3.4 g/dL (3.5-5.1); Alkaline Phosphatase 63 U/L (38-126); Anion Gap 5 mmol/L (8-16); Aspartate Amino Transferase 24 U/L (14-36); Bilirubin,Total 0.3 mg/dL (0.2-1.3); Blood Urea Nitrogen 17 mg/dL (7-17); Calcium 8.1 mg/dL (8.4-10.2); Carbon Dioxide 32 mmol/L (22-30); Chloride 103 mmol/L (98-107); Estimated CRCL calculation 40 ml/min; Estimated Glomerular Filt Rate 41; Glucose 84 mg/dL (65-110); Potassium 3.7 mmol/L (3.4-5.0); Sodium 140 mmol/L (137-145)
[2022-10-01] MEDS: LEVOTHYROXINE SODIUM 50 MCG TABLET PO (06:22)
[2022-10-01 07:37] LABS: Glucose Point of Care 88 mg/dl (65-105)
[2022-10-01] MEDS: APIXABAN 5 MG TABLET PO ×2 (09:18→20:35)
[2022-10-01] MEDS: ACETAMINOPHEN/ASPIRIN/CAFFEINE 250-250-65 MG TABLET 0.5 TABLET PO (09:18)
[2022-10-01] MEDS: amLODIPine BESYLATE 5 MG TABLET 10 MG PO (09:18)
[2022-10-01] MEDS: POTASSIUM CHLORIDE 20 MEQ ER TABLET PO (09:18)
[2022-10-01] MEDS: lisinopriL 20 MG TABLET PO (09:19)
[2022-10-01] MEDS: FUROSEMIDE 20 MG TABLET PO (09:19)
[2022-10-01] MEDS: SERTRALINE HCL 50 MG TABLET 100 MG PO (09:19)
[2022-10-01 11:30] LABS: Glucose Point of Care 104 mg/dl (65-105)
--- NOTE | 2022-10-01 13:01 | PM.PNCARD ---
Progress Note: A&P Assessment and Plan (1) Bradycardia: Code(s): R00.1 - Bradycardia, unspecified Status: Acute Assessment and Plan: Patient has persistent sinus bradycardia heart rates in the 40s-50's fairly asymptomatic. She has now on noted that her dizziness is improving after flecainide has been washing out and metoprolol has been held. Heart rate slightly improved up to low 50s generally still in the upper 40s. Blood pressure stable, she remains hemodynamically stable. Flecainide has been discontinued. She agrees to tolerate bradycardic this time. We discussed this at length. Discussed the risk with discontinuation of Toprol-XL due to recurrence of atrial fibrillation with rapid ventricular response which would be undesirable. I do not feel adding a 3rd alternative agent would be in her best interest given risk for overlap potential unknown side effects. I feel discharge without any AV [place] blocking agent and or antiarrhythmic therapy is ill advised that she will develop recurrent atrial fibrillation. Therefore, we must establish she tolerates is least low-dose beta-jannette therapy prior to consideration for discharge. I will resume Toprol XL 25 mg daily today and observe tolerance overnight. Continue telemetry recommendation to follow. We discussed concern for tachycardia bradycardia syndrome and potential need for either EP evaluation and or ablation options versus pacemaker implantation if she is unable to tolerate effective medical therapy to keep her out of AFib. All questions answered patient and her sister satisfaction. She is not willing to try flecainide again as she feels she now knows she does not tolerate. This issue needs to be clarified further to ensure stability and tolerance of medical therapy. Will start metoprolol tartrate 12.5 mg twice daily and observe tolerance. (2) A-fib: Qualifiers: Atrial fibrillation type: unspecified chronic Qualified Code(s): I48.20 - Chronic atrial fibrillation, unspecified Code(s): I48.91 - Unspecified atrial fibrillation Status: Acute Assessment and Plan: Patient maintaining sinus rhythm/bradycardia without recurrence of AFib this time. I spent a great deal time the patient and her family at bedside discussing previous mention concern with regards to atrial flutter with rapid ventricular response 1:1 conduction. I have extensively reviewed telemetry and these noted episodes. I took several tracings/pronounce of these reported arrhythmias and or events to the bedside and with a caliper went through all them demonstrating that these events are in fact not secondary to a supraventricular tachycardia but are artifactual in nature. I demonstrated however sinus bradycardia emerges in between these episodes concerning for a tachyarrhythmia without any disruption in the rate and the fact that you can appreciate QRS complexes marching through the tachyarrhythmia without disruption. I demonstrated this and discussed this concept of artifact versus real arrhythmia. I answered any and all questions they had. They expressed their great appreciation for the amount of time he spent at bedside with him explaining all these findings investigating the nature of her symptoms. As such, I agreed with Dr. Blake's decision to discontinue flecainide particularly in light of her bradycardia and given her reported symptoms and supposedly association with this very rapid narrow complex finding on telemetry. However, it is my firm conclusion that these events in fact are not real and artifactual nature. Nonetheless I will not plan to resume flecainide at this time unless she has recurrence of AFib with RVR or other true tachyarrhythmia. Same issues above. We discussed this once again at length. All questions answered the patient and her sister satisfaction. (3) Esophagitis: Code(s): K20.90 - Esophagitis, unspecified without bleeding Status: Acute
--- NOTE | 2022-10-01 13:21 | PC.NURSE ---
Addendum entered by Maggie Marte RN 10/01/22 13:23: Pt metoprolol held due to decreased heart rate, provider and mock up maker aware. Original Note: Pt continues to experience bradycardia. Pt has had a visitor at bedside today. Pt does not express any needs and does not report any pain. Pt compliant with care. Will continue to monitor pt.
--- NOTE | 2022-10-01 14:35 | WPDPN ---
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 Status: Acute Assessment and Plan: Pt needs to be on OAC restarted 09/29, aflutter noted, flecainide d/c 09/30: still in intermittent atrial flutter, defer management to cardiology 10/01/2022 interval history: patient presented with Atrial flutter and is found to have bradycardia and tachycardia, seen by rehab office coordinator and Toproal is reduce metoprolol 12.5 BID as patient HR goes down into 40s and symptomatic, rehab office coordinator recommended if symptoms do not improve, may need to see a baler for an abalation, patient remains clinically stable, her sister is present in the room, will monitor, (2) History of cardioversion: Code(s): Z92.89 - Personal history of other medical treatment Status: Acute Assessment and Plan: Pt converted to NSR, successful cardioversion Has since flipped into atrial flutter intermittently Will likely need to be transferred for ablation and further EP evaluation, defer management to Cardiology (3) Esophagitis: Code(s): K20.90 - Esophagitis, unspecified without bleeding Status: Acute Assessment and Plan: s/p EGD/ colonoscopy (4) Acute lower GI bleeding: Code(s): K92.2 - Gastrointestinal hemorrhage, unspecified Status: Acute Assessment and Plan: Continue iv Protonix (5) Hypertension associated with diabetes: Code(s): E11.59 - Type 2 diabetes mellitus with other circulatory complications; I15.2 - Hypertension secondary to endocrine disorders Status: Acute Assessment and Plan: Accuchecks, order ssi order DM diet (6) Morbid obesity: Code(s): E66.01 - Morbid (severe) obesity due to excess calories Status: Acute Assessment and Plan: Chronic problem Plan DVT prophylaxis with eliquis GI prophylaxis not indicated Code status full code Subjective Date/time seen: 10/01/22 14:35 Interval history: 10/01/2022 interval history: patient presented with Atrial flutter and is found to have bradycardia and tachycardia, seen by rehab office coordinator and Toproal is reduce metoprolol 12.5 BID as patient HR goes down into 40s and symptomatic, rehab office coordinator recommended if symptoms do not improve, may need to see a baler for an abalation, patient remains clinically stable, her sister is present in the room, will monitor, Review of Systems Review of Systems: 12 point review of systems was assessed and was negative except as noted in the HPI Objective Data Vital Signs Vital Signs: Vital Signs - 24 hr 09/30/22 16:02 09/30/22 20:00 09/30/22 20:00 Temperature Pulse Rate 47 L 44 L 47 L Respiratory Rate 18 Blood Pressure Pulse Oximetry 95 Oxygen Delivery Room Air Fraction of Inspired Oxygen 09/30/22 20:51 09/30/22 21:45 10/01/22 00:00 Temperature 98.2 F Pulse Rate 48 L 51 L 47 L Respiratory Rate 16 Blood Pressure 127/69 Pulse Oximetry 96 96 Oxygen Delivery Room Air Fraction of Inspired Oxygen 10/01/22 04:00 10/01/22 05:21 10/01/22 09:20 Temperature 97.8 F Pulse Rate 46 L 49 L 47 L Respiratory Rate 16 Blood Pressure 131/69 Pulse Oximetry 95 Oxygen Delivery Fraction of Inspired Oxygen 10/01/22 09:18 10/01/22 08:01 10/01/22 12:03 Temperature Pulse Rate 47 L 46 L 47 L Respiratory Rate Blood Pressure Pulse Oximetry Oxygen Delivery Room Air Fraction of Inspired Oxygen 10/01/22 14:00 Temperature 98 F Pulse Rate 50 L Respiratory Rate 18 Blood Pressure 123/72 Pulse Oximetry 98 Oxygen Delivery Fraction of Inspired Oxygen Intake/Output Intake/Output: Intake & Output 09/28/22 09/29/22 09/30/22 10/01/22 23:59 23:59 23:59 23:59 Intake Total 4728 627 2365 860 Output Total 500 Balance 0204 085 2375 860 Meds/Results Medications: Active Medications
[2022-10-01 16:44] LABS: Glucose Point of Care 115 mg/dl (65-105)
[2022-10-01] MEDS: LOVASTATIN 20 MG TABLET 40 MG PO (17:00)
[2022-10-01] MEDS: ACETAMINOPHEN 325 MG TABLET 650 MG PO (18:07)
[2022-10-01] MEDS: METOPROLOL TARTRATE 12.5 MG TABLET PO (20:35)
[2022-10-01] MEDS: PANTOPRAZOLE 40 MG TABLET PO (20:35)
[2022-10-01 21:08] LABS: Glucose Point of Care 116 mg/dl (65-105)
[2022-10-02] VITALS (10 sets, daily range): BP systolic 118–123; BP diastolic 69–80; PULSE 43–58; RESP 16; TEMP 36.5–36.6; O2SAT 94–99
[2022-10-02] MEDS: LEVOTHYROXINE SODIUM 50 MCG TABLET PO (06:12)
[2022-10-02 06:39] LABS: Basophils Percent Auto 0.6 % (0.2-1.2); Eosinophils Absolute Auto 0.2 K/mm3 (0-0.3); Eosinophils Percent Auto 3.3 % (0-4.4); Hematocrit 31.2 % (37.0-47.0); Hemoglobin 9.8 g/dL (12.0-15.0); Immature Granulocyte Absolute 0.01 K/mm3 (0.00-0.031); Immature Granulocyte Percent A 0.2 % (0-0.5); Lymphocytes Absolute Auto 1.45 K/mm3 (0.9-3.2); Mean Corpuscular HGB Conc 31.4 g/dl (32-36); Mean Corpuscular Hemoglobin 27.5 pg (26-34); Mean Corpuscular Volume 87.4 fl (80-100); Mean Platelet Volume 9.9 fl (7.4-10.4); Monocytes Absolute Auto 0.4 K/mm3 (0.1-0.6); Monocytes Percent Auto 7.1 % (2.6-8.5); Neutrophils Absolute Auto 3.2 K/mm3 (1.3-6.7); Neutrophils Percent Auto 60.8 % (45.5-73.1); Platelet Count Result 222 k/mm3 (150-375); Red Blood Count 3.57 M/mm3 (4.2-5.4); Red Cell Distribution Width 14.9 % (11.5-14.5); White Blood Count 5.2 K/mm3 (4.5-10.0)
[2022-10-02 06:56] LABS: Alanine Aminotransferase 14 U/L (6-35); Albumin Level 3.4 g/dL (3.5-5.1); Alkaline Phosphatase 60 U/L (38-126); Anion Gap 4 mmol/L (8-16); Aspartate Amino Transferase 24 U/L (14-36); Bilirubin,Total 0.4 mg/dL (0.2-1.3); Blood Urea Nitrogen 16 mg/dL (7-17); Calcium 8.7 mg/dL (8.4-10.2); Carbon Dioxide 33 mmol/L (22-30); Chloride 103 mmol/L (98-107); Estimated CRCL calculation 43 ml/min; Estimated Glomerular Filt Rate 45; Glucose 84 mg/dL (65-110); Potassium 3.7 mmol/L (3.4-5.0); Sodium 140 mmol/L (137-145)
[2022-10-02 07:41] LABS: Glucose Point of Care 91 mg/dl (65-105)
[2022-10-02] MEDS: SERTRALINE HCL 50 MG TABLET 100 MG PO (08:35)
[2022-10-02] MEDS: amLODIPine BESYLATE 5 MG TABLET 10 MG PO (08:35)
[2022-10-02] MEDS: ACETAMINOPHEN/ASPIRIN/CAFFEINE 250-250-65 MG TABLET 0.5 TABLET PO (08:35)
[2022-10-02] MEDS: lisinopriL 20 MG TABLET PO (08:36)
[2022-10-02] MEDS: METOPROLOL TARTRATE 12.5 MG TABLET PO (08:36)
[2022-10-02] MEDS: POTASSIUM CHLORIDE 20 MEQ ER TABLET PO (08:36)
[2022-10-02] MEDS: FUROSEMIDE 20 MG TABLET PO (08:36)
[2022-10-02] MEDS: APIXABAN 5 MG TABLET PO (08:37)
[2022-10-02 11:38] LABS: Glucose Point of Care 124 mg/dl (65-105)
[2022-10-02] MEDS: ACETAMINOPHEN 325 MG TABLET 650 MG PO (15:02)
--- NOTE | 2022-10-02 15:40 | WPDPN ---
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 Status: Acute Assessment and Plan: Pt needs to be on OAC restarted 09/29, aflutter noted, flecainide d/c 09/30: still in intermittent atrial flutter, defer management to cardiology 10/02/2022 interval history: patient presented with Atrial flutter and is found to have bradycardia and tachycardia, seen by shock absorber installer and on 10/01 Toprol was reduce to metoprolol 12.5 BID as patient HR goes down into 40s and symptomatic, shock absorber installer recommended if symptoms do not improve, may need to see a flooring installer for mapping and abalation, however patient clinical symptoms are improving, and HR is trending up, patient will be seen his shock absorber installer and further recommendation, patient remains clinically stable,, will monitor, (2) History of cardioversion: Code(s): Z92.89 - Personal history of other medical treatment Status: Acute Assessment and Plan: Pt converted to NSR, successful cardioversion Has since flipped into atrial flutter intermittently Will likely need to be transferred for ablation and further EP evaluation, defer management to Cardiology (3) Esophagitis: Code(s): K20.90 - Esophagitis, unspecified without bleeding Status: Acute Assessment and Plan: s/p EGD/ colonoscopy (4) Acute lower GI bleeding: Code(s): K92.2 - Gastrointestinal hemorrhage, unspecified Status: Acute Assessment and Plan: Continue iv Protonix (5) Hypertension associated with diabetes: Code(s): E11.59 - Type 2 diabetes mellitus with other circulatory complications; I15.2 - Hypertension secondary to endocrine disorders Status: Acute Assessment and Plan: Accuchecks, order ssi order DM diet (6) Morbid obesity: Code(s): E66.01 - Morbid (severe) obesity due to excess calories Status: Acute Assessment and Plan: Chronic problem Plan DVT prophylaxis with eliquis GI prophylaxis not indicated Code status full code Subjective Date/time seen: 10/02/22 15:40 Interval history: 10/02/2022 interval history: patient presented with Atrial flutter and is found to have bradycardia and tachycardia, seen by shock absorber installer and on 10/01 Toprol was reduce to metoprolol 12.5 BID as patient HR goes down into 40s and symptomatic, shock absorber installer recommended if symptoms do not improve, may need to see a flooring installer for mapping and abalation, however patient clinical symptoms are improving, and HR is trending up, patient will be seen his shock absorber installer and further recommendation, patient remains clinically stable,, will monitor, Review of Systems Review of Systems: 12 point review of systems was assessed and was negative except as noted in the HPI Objective Data Vital Signs Vital Signs: Vital Signs - 24 hr 10/01/22 16:01 10/01/22 19:52 10/01/22 20:35 Temperature Pulse Rate 57 L 57 L 64 Respiratory Rate 18 Blood Pressure Pulse Oximetry 98 Oxygen Delivery Room Air Fraction of Inspired Oxygen 21 10/01/22 20:00 10/01/22 22:00 10/02/22 00:00 Temperature 97.5 F L Pulse Rate 53 L 50 L 44 L Respiratory Rate 20 Blood Pressure 135/75 Pulse Oximetry 98 Oxygen Delivery Fraction of Inspired Oxygen 10/02/22 04:00 10/02/22 05:26 10/02/22 08:25 Temperature 97.8 F Pulse Rate 43 L 45 L 58 L Respiratory Rate 16 Blood Pressure 118/69 Pulse Oximetry 94 Oxygen Delivery Room Air Fraction of Inspired Oxygen 10/02/22 08:36 10/02/22 08:01 10/02/22 11:34 Temperature Pulse Rate 50 L 47 L Respiratory Rate Blood Pressure Pulse Oximetry 96 Oxygen Delivery Room Air Fraction of Inspired Oxygen 10/02/22 12:03 10/02/22 14:00 Temperature 97.7 F Pulse Rate 46 L 46 L Respiratory Rate 16 Blood Pressure 123/80 Pulse Oximetry 99 Oxygen Delivery Frac
[2022-10-02 16:38] LABS: Glucose Point of Care 80 mg/dl (65-105)
--- NOTE | 2022-10-02 17:01 | PM.PNCARD ---
Progress Note: A&P Assessment and Plan (1) A-fib: Qualifiers: Atrial fibrillation type: unspecified chronic Qualified Code(s): I48.20 - Chronic atrial fibrillation, unspecified Code(s): I48.91 - Unspecified atrial fibrillation Status: Acute (2) Bradycardia: Code(s): R00.1 - Bradycardia, unspecified Status: Acute Plan 67-year-old lady with: Paroxysmal atrial fibrillation with very strange symptomatology most of which probably has nothing to do with her arrhythmias since she is symptomatic whether she is in AF or in sinus rhythm. In any event she is in sinus bradycardia now over the weekend flecainide has washed out and she can be discharged safely. I do expect her to go back into atrial fibrillation and I told her at that time we will need to decide either to accept chronic AF or consider an electrophysiology consultation. She is none the less maintaining sinus rhythm at this point and can be discharged. She has follow-up to see me in the office already scheduled about a month from now. That should be sufficient. Femi Blake MD [facility] Subjective Date/time seen: Date of service: 10/02/22 17:01 Interval history: Follow-up visit in this 67-year-old woman with atrial fibrillation, bradycardia: Persistent atrial fibrillation status post recent DC cardioversion and treated medically with flecainide in hopes of maintaining sinus rhythm. Patient was admitted here earlier during this hospitalization with GI bleeding and has been therefore taken off of his Xarelto. Feels reasonably well this afternoon but reports episodes of sudden very rapid tachycardia. Review of her telemetry demonstrates episodes of atrial flutter with what appears to be one-to-one conduction heart rate over 250 beats per minute that would last for about 30 to seconds. One episode of this last evening and another episode early this morning. Discussed with the patient's this is likely result of her flecainide permitting 1-1 conduction with flutter. We did not have a diagnosis of atrial flutter before this incident. Date of service 09/30/2022: At rest, patient states she feels very well and has no complaints. Patient states every time she ambulates she has a fairly significant tightness in her chest across the left and right and does not feel well resulting shortness of breath. As soon as she rests the symptoms rm. His been reported that when she ambulates she has a very rapid narrow complex tachyarrhythmia on telemetry which was felt to be contributing to patient's symptoms prompting discontinuation of flecainide yesterday. Patient has had several incidents like this. A very lengthy discussion was held with the patient and her at bedside, sister and [id number]. Patient later admits she had these symptoms prior to beginning flecainide and prior to cardioversion. She also admits that on occasion she can reproduce the symptoms turning over in bed in a certain position or lying on her left side. She denies any improved with Tylenol in the past. I extensively discussed her telemetry findings in detail. Date of service 10/01/2022: Patient remains bradycardic heart rate in the 40s generally occasional into the low to mid 50s in sinus rhythm. Two other episodes of artifact on telemetry not consistent with atrial flutter or atrial fibrillation. Patient states she is feeling better overall. Less dizzy with position change in ambulation. She still experiences chest tightness shortness of breath with ambulation but this is slightly improved as well. She denies chest discomfort bending over. She also admits to acid reflux symptoms but states this is different than that associated with activity and different than bending over. Symptoms resolve with rest. She notes exacerbation of his symptoms with deep breathing. Her sister was at bedside asking several questions. Given every opportunity to ask any question, leeroy ritter
--- NOTE | 2022-10-02 17:51 | PM.DS ---
DS: Admitting Diagnosis Discharge Date 10/02/2022 Admitting Diagnosis GI bleed DS: Discharge Diagnosis Discharge Diagnosis (1) Chronic anticoagulation: Code(s): Z79.01 - FDC (current) use of anticoagulants Status: Acute Assessment and Plan: Pt needs to be on OAC restarted 09/29, aflutter noted, flecainide d/c 09/30: still in intermittent atrial flutter, defer management to cardiology 10/02/2022 interval history: patient presented with Atrial flutter and is found to have bradycardia and tachycardia, seen by fsr and on 10/01 Toprol was reduce to metoprolol 12.5 BID as patient HR goes down into 40s and symptomatic, fsr recommended if symptoms do not improve, may need to see a shoes salesperson for mapping and abalation, however patient clinical symptoms are improving, and HR is trending up, patient will be seen his fsr and further recommendation, patient remains clinically stable,, will monitor, (2) History of cardioversion: Code(s): Z92.89 - Personal history of other medical treatment Status: Acute Assessment and Plan: Pt converted to NSR, successful cardioversion Has since flipped into atrial flutter intermittently Will likely need to be transferred for ablation and further EP evaluation, defer management to Cardiology (3) Esophagitis: Code(s): K20.90 - Esophagitis, unspecified without bleeding Status: Acute Assessment and Plan: s/p EGD/ colonoscopy (4) Acute lower GI bleeding: Code(s): K92.2 - Gastrointestinal hemorrhage, unspecified Status: Acute Assessment and Plan: Continue iv Protonix (5) Hypertension associated with diabetes: Code(s): E11.59 - Type 2 diabetes mellitus with other circulatory complications; I15.2 - Hypertension secondary to endocrine disorders Status: Acute Assessment and Plan: Accuchecks, order ssi order DM diet (6) Morbid obesity: Code(s): E66.01 - Morbid (severe) obesity due to excess calories Status: Acute Assessment and Plan: Chronic problem Plan DVT prophylaxis with eliquis GI prophylaxis not indicated Code status full code DS: Summary Hospital Course Reason for hospitalization: Gi bleed Narrative: Patient had cardioversion yesterday soon after that she felt, with nausea, vomiting, right-sided abdominal discomfort, and diarrhea including some blood in her stool. Pt has history of ulcer, hb is low today, pt is kept NPO for EGD and colonoscopy CT chest shows -?Moderate esophagitis/gastritis. Hospital Course: patient presented with Atrial flutter and is found to have bradycardia and tachycardia, seen by fsr and on 10/01 Toprol was reduce to metoprolol 12.5 BID as patient HR goes down into 40s and symptomatic, fsr recommended if symptoms do not improve, may need to see a shoes salesperson for mapping and abalation, however patient clinical symptoms are improving, and HR is trending up, patient will be seen his fsr and further recommendation,? patient remains clinically stable,, will monitor, Patient is clinically stable heart rate is close to normal in sinus rhythm will discharge the patient today. Time Spent with Patient Time attestation: Total time spent providing and/or coordinating discharge services: Exam Narrative: Patient is comfortable, NAD HEENT: eyes are clear and none icteric LUNGS: Normal respiratory effort ABD: Not distended Lower extremities: no edema SKIN: nonjaundiced Neuro: grossly intact. DS: Data Data Completed and Pending Completed studies during hospitalization: Pending at discharge 09/28/22 12:21 Surgical [PTH] Routine Labs on day of discharge: Labs from last 24 hours 10/02/22 10/02/22 10/02/22 16:31 11:35 07:33 WBC RBC Hgb Hct MCV MCH MCHC RDW Plt Count MPV Immature Gran % (Auto) Neut % (Auto) Lymph
--- NOTE | 2022-10-02 18:29 | PC.NURSE ---
Addendum entered by Maggie Marte RN 10/02/22 18:41: Pt IV was removed, tip intact. Original Note: Pt discharged home with self care. Pt has been compliant with care and participated and contributed in plan of care. Pt was cleared by cardiology to discharge. Pt went home with sister and brother in law. Pt was monitored for any changes in status while here.
== END 2022-10-02 18:20 | disposition home or self-care (01) | DRG 378 ==
LOC: ANHED 21:31 → ANH3MEDSUR 09-27 00:32
PROVIDERS: Emergency Medicine; Family Medicine; Internal Medicine Gastroenterology; Nurse Practitioner; Student in an Organized Health Care Education/Training Program; Admitting Provider Internal Medicine; Emergency Provider Emergency Medicine; PCP Internal Medicine; Visit Provider Family Medicine
PROC: 0DJ08ZZ Inspection of Upper Intestinal Tract, Via Natural or Artificial Opening Endoscopic (ICD-10-PCS; CPT 43235; principal; 2022-09-28 11:45)
DX: K92.2 Gastrointestinal hemorrhage, unspecified (principal); I48.19 Other persistent atrial fibrillation; I48.92 Unspecified atrial flutter; K21.00 Gastro-esophageal reflux disease with esophagitis, without bleeding; K29.70 Gastritis, unspecified, without bleeding; K57.30 Diverticulosis of large intestine without perforation or abscess without bleeding; R00.1 Bradycardia, unspecified; K64.8 Other hemorrhoids; I25.10 Atherosclerotic heart disease of native coronary artery without angina pectoris; I12.9 Hypertensive chronic kidney disease with stage 1 through stage 4 chronic kidney disease, or unspecified chronic kidney disease; R42 Dizziness and giddiness; R00.0 Tachycardia, unspecified; N18.9 Chronic kidney disease, unspecified; E78.5 Hyperlipidemia, unspecified; E11.22 Type 2 diabetes mellitus with diabetic chronic kidney disease; E11.59 Type 2 diabetes mellitus with other circulatory complications; I15.2 Hypertension secondary to endocrine disorders; M19.90 Unspecified osteoarthritis, unspecified site; Z85.828 Personal history of other malignant neoplasm of skin; Z79.01 Long term (current) use of anticoagulants; Z90.49 Acquired absence of other specified parts of digestive tract; Z96.652 Presence of left artificial knee joint; E66.01 Morbid (severe) obesity due to excess calories; Z68.33 Body mass index [BMI] 33.0-33.9, adult; Z92.89 Personal history of other medical treatment
CPT/HCPCS: 36415; 71046; 74177; 80048; 80053; 82948; 83036; 83690; 83735; 84100; 84132; 84484; 85025; 85610; 85730; 88305; 93005; 96361; 96374; 96375; 96376; 99285; A9270; C9113; G0378; J2405; J2704; J7042; J7120; Q9967

== ENCOUNTER → 2023-01-31 13:59 | Outpatient (CLI) | payer MEDICARE, BC, SELFPAY ==
--- NOTE | ~2023-01-31 | XR_ITS ---
EXAM: [id number] DATE: 01/31/2023 14:23 HISTORY: no injury neck pain . COMPARISON: None available. FINDINGS: Craniocervical association and atlantoaxial joint are aligned with mild degenerative zambrano e. No prevertebral soft tissue swelling. Mild anterolistheses noted at C3-4 and C5-6. Mild retrolisth esis at C6-7. Vertebral body heights are maintained. Multilevel disc space narrowing, moderate at C6- 7. Multilevel moderate-severe facet hypertrophy. IMPRESSION: Multilevel grade 1 listheses detailed above. Multilevel degenerative disc disease, moderate at C6-7. Multilevel severe facet arthropathy. Reviewed, dictated and finalized at location K.
--- NOTE | ~2023-01-31 | XR_ITS ---
EXAM: XR lumbar spine 2-3V DATE: 01/31/2023 14:24 HISTORY: no injury lbp that goes down both legs . COMPARISON: CT abdomen pelvis 09/26/2022. FINDINGS: Cholecystectomy clips. Moderate lumbar scoliosis. 5 nonrib-bearing lumbar-type vertebral louise dies. Pedicles intact. Normal alignment. Vertebral body heights preserved. Multilevel moderate disc s pace narrowing and mild marginal osteophytosis. Multilevel facet hypertrophy and sclerosis, severe at L4-5 and L5-S1. No fracture or dislocation. IMPRESSION: Multilevel moderate degenerative disc disease. Severe lower lumbar facet arthropathy. Reviewed, dictated and finalized at location K.
== END ==
PROVIDERS: PCP Nurse Practitioner; Visit Provider Nurse Practitioner
DX: M47.816 Spondylosis without myelopathy or radiculopathy, lumbar region (principal); M50.323 Other cervical disc degeneration at C6-C7 level; M47.812 Spondylosis without myelopathy or radiculopathy, cervical region; M43.12 Spondylolisthesis, cervical region
CPT/HCPCS: 72040; 72100

== ENCOUNTER 2023-04-06 11:00 | Outpatient (RCR) | payer MEDICARE, BC, SELFPAY ==
--- NOTE | 2023-02-07 12:54 | OPREHPOC ---
Outpatient Therapy Plan of Care This is a Multidisciplinary Plan of Care that may contain components documented by all disciplines (PT, OT, and ST.) PT Problem 1 PT Problem #1 Knowledge Deficit PT Goal 1 Goal Pt to be IND with issued HEP Target Visit 8 PT Problem 2 PT Problem #2 Pain PT Goal 1 Goal Pt to report back pain no greater than 3/10 in the last week. Target Visit 8 PT Goal 2 Goal pt to report 75% improvement in overall symptoms. Target Visit 8 PT Problem 3 PT Problem #3 Impaired Range of Motion PT Goal 1 Goal Pt to report no increase in pain with passive hip ROM Target Visit 8 PT Goal 2 Goal Pt to report no increase in pain with active lumbar ROM Target Visit 8 PT Problem 4 PT Problem #4 Impaired Functional Mobil PT Goal 1 Goal Pt to be able to lift and carry 20lb from ground level without an increase in symptoms Target Visit 8 PT Goal 2 Goal Pt to improve Oswestry score from 31/50 to 15/50 Target Visit 8 PT Problem 5 PT Problem #5 Pain PT Goal 1 Goal Pt to be able to ambulate for 20 mins without an increase in pain Target Visit 8 PT Goal 2 Goal Pt to be able to sleep through the night without being woken d/t pain Target Visit 8
--- NOTE | 2023-02-07 12:54 | PTOPEVAL1 ---
Assessment and note entered by Gary Cotter, PT, DPT Evaluation Information Assessment Status Evaluation Diagnosis lumbago with ann sciatica (M54.41 and M54.42) Subjective Information Pt reports a chronic history of neck and upper back pain. She reports a new onset of low back pain with ann LE radicular symptoms, R>L. She states her pain is worse when she is trying to sleep, she wakes up multiple times in a night. Pt states she likes to walk for exercise but currently can walk no longer than 5 mins before she needs to sit down d/t pain. Reported Pain Level Pain Score 6: Self Report Assessment PT Clinical Summary Kari presents to therapy today for her initial evaluation with a ann sciatic pain. Today she demonstrates decreased lumbar and ann hip ROM limited by pain. She demonstrates ann hip weakness , tenderness to palpation throughout her ann piriformis and L lumbar paraspinals, and ambulates with an antalgic pattern. Skilled therapy services are indicated to improve ROM, pain reports, soft tissue mobility, and to return to PLOF without limitations. Oswestry 31/50, 62% disability Plan of Care Interventions Electrical Stimulation,Gait Training,Hot Pack/Cold Pack,Manual Therapy,Neuro Re-education,Patient/ Caregiver Educati,Therapeutic Activities, Therapeutic Exercise PT Services Indicated Yes Treatment Frequency and 2x/wk for 8 visits Duration These treatments will address the objective and functional deficits as defined above. The patient will be advanced safely and appropriately in order for the patient to progress towards his/her prior level of function. Additional exercises will be introduced and as well as a comprehensive home exercise program upon discharge, if needed, ?to ensure carryover of functional gains achieved in the clinic. This treatment plan has been reviewed and agreement upon by the patient.
--- NOTE | 2023-02-23 12:16 | PCPTNOTE ---
Patient canceled appointment due to moving to just once a week.
--- NOTE | 2023-03-07 13:21 | PTOPPROG ---
Assessment and note entered by Gary Cotter, PT, DPT Evaluation Information Assessment Status Progress Diagnosis lumbago with ann sciatica (M54.41 and M54.42) Subjective Information Pt switched down to 1x/wk d/t scheduling issues. She reports good compliance with her HEP. She states she still has some pain down the R leg and up in her back towards her ribs. She states her pain has improved since starting therapy though. Pt reports 60% improvement in her R leg symptoms, and about 10% improvement in her low back symptoms .. She states she can walk half a block now. She states she spends most of time watching tv but does get up often to grab things. She states her neck is now more painful than her lower back. A 5/10 at its best, and 8-9/10 at the worst. She states she has a constant headache despite medication. Assessment PT Clinical Summary Kari presents to therapy today for her progress report following 5 visits of skilled therapy to treat her chronic low back pain with a ann sciatic pain. Today she demonstrates decreased lumbar but reports it has improved to a tolerable amount since starting therapy. She would like to shift focus from her low back to her neck. Her neck was evaluated today. She demonstrates decreased active ROM in her cervical spine, limited by pain, she also demonstrates decreased thoracic mobility. She has thoracic paraspinal tightness and demonstrates increased thoracic kyphosis in sitting. Skilled therapy services are indicated to manage pain, improve mobility, and to decrease headache frequency. Oswestry 25/50, 50% disability Plan of Care Interventions Electrical Stimulation,Gait Training,Hot Pack/Cold Pack,Manual Therapy,Neuro Re-education,Patient/ Caregiver Educati,Therapeutic Activities, Therapeutic Exercise PT Services Indicated Yes Treatment Frequency and 1x/wk for 4 visits Duration These treatments will address the objective and functional deficits as defined above. The patient will be advanced safely and appropriately in order for the patient to progress towards his/her prior level of function. Additional exercises will be introduced and as well as a comprehensive home exercise program upon discharge, if needed, ?to ensure carryover of functional gains achieved in the clinic. This treatment plan has been reviewed and agreement upon by the patient.
--- NOTE | 2023-04-06 11:47 | PTOPDC ---
Assessment and note entered by Gary Cotter, PT, DPT Evaluation Information Assessment Status discharge Diagnosis lumbago with ann sciatica (M54.41 and M54.42) Subjective Information Pt states her neck is feeling really stiff today after driving for over 6 hours yesterday. She states overall therapy is really helping and is pleased with her progress. Reported Pain Level Pain Score 6,7: Self Report Assessment PT Clinical Summary Kari presents to therapy today for her progress report following 10 visits of skilled therapy to treat her chronic low back pain with a ann sciatic pain. Today she demonstrates improved lumbar mobility with decreased pain reports. She is making slow but consistent progress towards her therapy goals. She would like to be discharged at this time to continue her HEP.
== END 2023-04-06 13:15 | disposition home or self-care (01) ==
LOC: ANHGOSHPT 11:00
PROVIDERS: PCP Nurse Practitioner; Visit Provider Nurse Practitioner
DX: M54.2 Cervicalgia (principal); M54.41 Lumbago with sciatica, right side; M54.42 Lumbago with sciatica, left side; G89.29 Other chronic pain
CPT/HCPCS: 97014; 97110; 97112; 97140; 97161; 97164; 97530; G0283

== ENCOUNTER 2023-04-12 08:09 | Emergency (ER) | payer MEDICARE, BC, SELFPAY ==
--- NOTE | ~2023-04-12 | XR_ITS ---
XR chest 2V DATE: 04/12/2023 09:06 INDICATION: Cough and wheezing for 5 days. History of hypertension, COPD TECHNIQUE: PA and lateral views COMPARISON: 09/26/2022 PA and lateral chest FINDINGS: Mild thyromegaly. Aortic arch calcification. No hilar or mediastinal enlargement. No pulmonary infiltrate or consolidation, pleural effusion or pulmonary vascular congestion or pneumo thorax is detected. Dextroscoliosis and degenerative change of the thoracic spine and levoscoliosis and degenerative paredes ge of the lumbar spine. Status post cholecystectomy. IMPRESSION: No active pulmonary disease Cardiomegaly Scoliosis and degenerative change of the thoracic and lumbar spine Reviewed, dictated and finalized at location L. ESE MEDICINE PRACTITIONER
[2023-04-12 08:27] VITALS: BP 117/84; PULSE 82; RESP 16; TEMP 37; O2SAT 95
--- NOTE | 2023-04-12 08:35 | ED.URI ---
HPI - URI/Sore Throat General Chief Complaint: Upper Respiratory Infection Stated Complaint: Chest Congestion;Cough;Fever Time Seen by Provider: 04/12/23 08:27 Source: patient and RN notes reviewed Mode of arrival: ambulatory Limitations: no limitations History of Present Illness HPI Narrative: Patient presents today complaining of 4 day history of cough, fever up to 102, sore throat, congestion, headache. She does report some intermittent wheezing as well with shortness of breath. She has tried her albuterol inhaler, Robitussin, Coricidin HBP without much relief. History of asthma and COPD for which she uses the albuterol inhaler. She has taken 3 home COVID test that have been negative. Related Data Home Medications Medication Instructions Recorded Confirmed btgnqwh-xgqvidnwwhqeo-vfzwbsad 250 0.5 tablet PO DAILY 06/07/21 04/12/23 mg-250 mg-65 mg tablet (Excedrin Migraine) vibegron 75 mg tablet (Gemtesa) 75 mg PO DAILY 10/18/21 04/12/23 polyethylene glycol 3350 17 gram 17 g PO DAILY 09/27/22 04/12/23 oral powder packet (Miralax) dronedarone 400 mg tablet (Multaq) 400 mg PO Q12H 12/06/22 04/12/23 Allergies Allergy/AdvReac Type Severity Reaction Status Date / Time fentanyl Allergy CARDIAC Verified 04/12/23 08:22 ARREST flecainide Allergy Dizziness Verified 04/12/23 08:22 niacin Allergy Hives Verified 04/12/23 08:22 amoxicillin [From Augmentin] AdvReac Vomiting Verified 04/12/23 08:22 clavulanic acid AdvReac Vomiting Verified 04/12/23 08:22 [From Augmentin] codeine AdvReac Vomiting Verified 04/12/23 08:22 Review of Systems Review of Systems: CONSTITUTIONAL: Denies body aches, chills, or sweats.+ fever EYES: Denies visual changes, redness, or discharge. ENT: Denies rhinorrhea, or otalgia.+ congestion, sore throat CARDIOVASCULAR: Denies chest pain, palpitations, or edema. RESPIRATORY: + cough, wheezing, shortness of breath GASTROINTESTINAL: Denies abdominal pain, nausea, vomiting, or diarrhea. GENITOURINARY: Denies dysuria or hematuria. SKIN: Denies rash, itching, or wounds. MUSCULOSKELETAL: Denies back pain, joint pain, or myalgia. NEUROLOGIC: Denies numbness, tingling, or weakness.+ headache PSYCH: Denies depression or anxiety. [facility] Past Medical History Medical History Abnormal CT scan, esophagus Absence of gallbladder Anxiety Arthritis Asthma Chronic anticoagulation Chronic kidney disease Constipation Constipation COPD (chronic obstructive pulmonary disease) Diabetes Diverticulosis Fusion of joint GERD (gastroesophageal reflux disease) Headache Hematuria History of cardioversion History of multiple miscarriages Hyperlipidemia Hypertension Interstitial cystitis Kidney disease Liver hemangioma Migraines Nausea and vomiting in adult Obesity (BMI 30-39.9) PTSD (post-traumatic stress disorder) RLQ abdominal mass Skin cancer Thyroid disorder Ventral incisional hernia Surgical History Surgical History H/O arthroplasty 2007 joint arthroplasty (anchovy procedure) H/O cardiac radiofrequency ablation (~10/2022) H/O hernia repair 2 hernia repairs 02/25/20 left inguinal and umbilical Spigelian hernia repair H/O hernia repair (~05/2022) H/O removal of cyst H/O: hysterectomy 1990 History of cardiac radiofrequency ablation History of carpal tunnel surgery History of cholecystectomy History of dilatation and curettage History of left knee replacement Hx of umbilical hernia repair Joint replaced Family History Family History Father Hypertension Heart disease Cerebrovascular accident Mother Hypertension Depression Heart disease Cerebrovascular accident Breast cancer Sibling Hypertension Depression FH: kidney cancer Other Diabetes mellitus Hypertension Other Blood
== END 2023-04-12 09:40 | disposition home or self-care (01) ==
PROVIDERS: Emergency Provider Nurse Practitioner; PCP Nurse Practitioner
DX: J06.9 Acute upper respiratory infection, unspecified (principal); J44.9 Chronic obstructive pulmonary disease, unspecified; K21.9 Gastro-esophageal reflux disease without esophagitis; E78.5 Hyperlipidemia, unspecified; I12.9 Hypertensive chronic kidney disease with stage 1 through stage 4 chronic kidney disease, or unspecified chronic kidney disease; E11.22 Type 2 diabetes mellitus with diabetic chronic kidney disease; N18.9 Chronic kidney disease, unspecified; Z96.652 Presence of left artificial knee joint; Z79.82 Long term (current) use of aspirin; F41.9 Anxiety disorder, unspecified
CPT/HCPCS: 71046; 99213; G0463

== ENCOUNTER → 2023-04-19 10:36 | Outpatient (CLI) | payer MEDICARE, BC, SELFPAY ==
--- NOTE | ~2023-04-19 | CT_ITS ---
EXAMINATION: CT abdomen pelvis wo con DATE: 04/19/2023 10:51 INDICATION: Contusion of abdominal wall, initial encounter. TECHNIQUE: Computed tomography (CT) of the abdomen and pelvis was performed without intravenous contr ast. Automated exposure control and iterative reconstruction technique were employed. The dose-length product was 937.80 mGy-cm. COMPARISON: CT abdomen and pelvis 09/26/2022 FINDINGS: The visualized portions of the lung bases demonstrate mild atelectasis. There is mild bronc hiectasis bilaterally. No pleural effusion. The heart size is normal. No pericardial effusion. There are cysts in the liver measuring up to 2.1 cm. There are changes of cholecystectomy. The spleen, panc reas, adrenal glands, and kidneys are normal. There are no dilated loops of bowel. There is diverticu losis of the colon without evidence of diverticulitis. The appendix is normal. There are no pathologi altagracia enlarged lymph nodes. There is no free intraperitoneal fluid. There is a 5.3 x 3.8 x 4.3 cm int ramuscular hematoma in left lateral abdominal wall. There is subcutaneous fat stranding in left later al abdominal wall. There is lumbar levoscoliosis and severe spondylosis. IMPRESSION: 1. Intramuscular hematoma in left lateral abdominal wall. Reviewed, dictated and finalized at location E. LAY FABRICATION SUPERVISOR
== END ==
PROVIDERS: PCP Nurse Practitioner; Visit Provider Nurse Practitioner
DX: S30.1XXA Contusion of abdominal wall, initial encounter (principal); R19.8 Other specified symptoms and signs involving the digestive system and abdomen; X58.XXXA Exposure to other specified factors, initial encounter
CPT/HCPCS: 74176

== ENCOUNTER 2023-07-06 14:08 | Outpatient (CLI) | payer MEDICARE, BC, SELFPAY ==
--- NOTE | ~2023-07-06 | US_ITS ---
EXAMINATION: US arterial ankle brachial ind DATE: 07/06/2023 15:14 INDICATION: Peripheral vascular disease TECHNIQUE: Segmental pressures and plethysmographic and Doppler waveforms of the brachial and lower e xtremity arteries were obtained. COMPARISON: None. FINDINGS: Right and left brachial artery pressures of 144 mm Hg and 145 mm Hg, respectively, are concordant (no rmal difference <= 30 mmHg). The right ankle-brachial index (TORITO) is 1.25 (normal >= 0.9-1.0). The right great toe-brachial index (TBI) is 0.94 (normal >= 0.65). Arterial Doppler waveforms are biphasic with brisk systolic upstrokes at both right posterior tibial and dorsalis pedis arteries. The left TORITO is 1.21. The left TBI is 0.82. Arterial Doppler waveforms are biphasic with brisk systol ic upstrokes at both left posterior tibial and dorsalis pedis arteries. IMPRESSION: 1. No significant arterial occlusive disease with normal bilateral ABIs and TBIs Reviewed, dictated and finalized at location A. IMPRESSION: 1. No significant arterial occlusive disease with normal bilateral ABIs and TBI s
== END 2023-07-06 14:09 | disposition home or self-care (01) ==
LOC: ANHIMG 14:14
PROVIDERS: PCP Internal Medicine; Visit Provider Nurse Practitioner
DX: I73.9 Peripheral vascular disease, unspecified (principal)
CPT/HCPCS: 93922

== ENCOUNTER 2023-07-09 09:47 | Outpatient (CLI) | payer MEDICARE, BC, SELFPAY ==
[2023-07-12 15:13] LABS: H pylori Ag Stool Not Detected (Not Detected)
== END 2023-07-09 09:48 | disposition home or self-care (01) ==
LOC: ANHLAB 09:49
PROVIDERS: PCP Internal Medicine; Visit Provider Nurse Practitioner
DX: A04.8 Other specified bacterial intestinal infections (principal)
CPT/HCPCS: 87338

== ENCOUNTER 2023-08-28 11:14 | Outpatient (CLI) | payer MEDICARE, BC, SELFPAY ==
--- NOTE | ~2023-08-28 | MM_ITS ---
EXAMINATION: MM screening [facility] BI w [place] HISTORY: Screening TECHNIQUE: Craniocaudal and mediolateral oblique 3-D tomosynthesis images were obtained and synthetic 2-D images were generated. CAD analysis was submitted and interpreted. COMPARISON: Comparison to multiple prior studies sequentially, with oldest reviewed study dated 07/16. BREAST PARENCHYMAL COMPOSITION: Not dense: There are scattered areas of fibroglandular density. FINDINGS: There is no evidence of suspicious mass, calcification, or architectural distortion to sugg est malignancy in either breast. There has been no suspicious interval change. IMPRESSION: 1. No mammographic evidence of malignancy. 2. Recommend routine screening mammography in one year. BI-RADS Category 1: Negative Reviewed, dictated and finalized at location B.
== END 2023-08-28 11:15 ==
LOC: MICIMG 11:15
PROVIDERS: PCP Internal Medicine; Visit Provider Internal Medicine
DX: Z12.31 Encounter for screening mammogram for malignant neoplasm of breast (principal)
CPT/HCPCS: 77063; 77067

== ENCOUNTER 2023-12-10 08:26 | Outpatient (CLI) | payer MEDICARE, BC, SELFPAY ==
[2023-12-10 14:53] LABS: Basophils Percent Auto 0.7 % (0.2-1.2); Eosinophils Absolute Auto 0.2 K/mm3 (0-0.3); Hematocrit 36.6 % (37.0-47.0); Hemoglobin 11.3 g/dL (12.0-15.0); Immature Granulocyte Absolute 0.01 K/mm3 (0.00-0.031); Immature Granulocyte Percent A 0.2 % (0-0.5); Lymphocytes Absolute Auto 1.43 K/mm3 (0.9-3.2); Lymphocytes Percent Auto 24.9 % (18.3-44.2); Mean Corpuscular HGB Conc 30.9 g/dl (32-36); Mean Corpuscular Hemoglobin 26.8 pg (26-34); Mean Corpuscular Volume 86.7 fl (80-100); Mean Platelet Volume 10.2 fl (7.4-10.4); Monocytes Absolute Auto 0.6 K/mm3 (0.1-0.6); Monocytes Percent Auto 9.6 % (2.6-8.5); Neutrophils Absolute Auto 3.6 K/mm3 (1.3-6.7); Neutrophils Percent Auto 61.6 % (45.5-73.1); Platelet Count Result 256 k/mm3 (150-375); Red Blood Count 4.22 M/mm3 (4.2-5.4); Red Cell Distribution Width 15.1 % (11.5-14.5); White Blood Count 5.8 K/mm3 (4.5-10.0)
[2023-12-10 16:22] LABS: Alanine Aminotransferase 14 U/L (6-35); Albumin Level 3.7 g/dL (3.5-5.1); Alkaline Phosphatase 59 U/L (38-126); Anion Gap 7 mmol/L (4-12); Aspartate Amino Transferase 55 U/L (14-36); Bilirubin,Total 0.2 mg/dL (0.2-1.3); Blood Urea Nitrogen 19 mg/dL (7-17); Calcium 8.9 mg/dL (8.4-10.2); Carbon Dioxide 34 mmol/L (22-30); Chloride 97 mmol/L (98-107); Cholesterol 166 mg/dL (0-200); Estimated Glomerular Filt Rate 38; Glucose 113 mg/dL (65-110); HDL Direct 31 mg/dL; Potassium 3.7 mmol/L (3.4-5.0); Sodium 138 mmol/L (137-145); Triglycerides 213 mg/dL (<150)
[2023-12-10 16:32] LABS: LDL Cholesterol Direct 78 mg/dL
[2023-12-10 16:50] LABS: Hemoglobin A1C 6.8 % (<5.7)
[2023-12-10 17:28] LABS: Vitamin D 25 Hydroxy 39.5 ng/mL
== END 2023-12-10 08:27 | disposition home or self-care (01) ==
PROVIDERS: PCP Internal Medicine; Visit Provider Nurse Practitioner
DX: E11.69 Type 2 diabetes mellitus with other specified complication (principal); E11.59 Type 2 diabetes mellitus with other circulatory complications; E78.5 Hyperlipidemia, unspecified; I15.2 Hypertension secondary to endocrine disorders; E07.9 Disorder of thyroid, unspecified; E55.9 Vitamin D deficiency, unspecified; N18.9 Chronic kidney disease, unspecified
CPT/HCPCS: 36415; 80053; 80061; 82306; 83036; 84443; 85025

== ENCOUNTER 2024-01-21 13:55 | Outpatient (CLI) | payer MEDICARE, BC, SELFPAY ==
--- NOTE | ~2024-01-21 | US_ITS ---
EXAMINATION: US renal BI DATE: 01/21/2024 14:08 INDICATION: Stage IIIa chronic kidney disease TECHNIQUE: Multiple ultrasound grayscale images of the kidneys were obtained. COMPARISON: None. FINDINGS: The right kidney measures 8.1 x 3.5 x 4.5 cm. The left kidney measures 8.8 x 4.9 x 4.2 cm. The kidney s demonstrate normal echogenicity. There is no hydronephrosis in either kidney. No stones identified . The bladder is normal. IMPRESSION: 1. Normal kidneys without hydronephrosis. Reviewed, dictated and finalized at location A.
== END 2024-01-21 13:56 | disposition home or self-care (01) ==
LOC: GOSHIMG 13:56
PROVIDERS: PCP Internal Medicine; Visit Provider Internal Medicine Nephrology
DX: N18.31 Chronic kidney disease, stage 3a (principal)
CPT/HCPCS: 76775

== ENCOUNTER 2024-01-31 14:25 | Outpatient (CLI) | payer MEDICARE, BC, SELFPAY ==
[2024-01-31 16:44] LABS: Immunoglobulin A 41 mg/dL (70-400); Immunoglobulin G 1239 mg/dL (700-1600); Immunoglobulin M 59 mg/dL (40-230)
[2024-02-01 11:33] LABS: Protein, Total 6.5 g/dL (6.1-8.1)
[2024-02-04 16:03] LABS: Abnormal Protein Band 1 0.8 g/dL (NONE DETECTED); Albumin 3.5 g/dL (3.8-4.8); Alpha 1 Globulin 0.3 g/dL (0.2-0.3); Alpha 2 Globulin 0.9 g/dL (0.5-0.9); Beta 1 Globulin 0.5 g/dL (0.4-0.6); Gamma Globulin 1.1 g/dL (0.8-1.7)
[2024-02-06 11:42] LABS: Lambda Light Chain 17.5 mg/L (5.7-26.3)
== END 2024-01-31 14:26 | disposition home or self-care (01) ==
LOC: ANHLAB 14:27
PROVIDERS: Internal Medicine; PCP Internal Medicine; Visit Provider Internal Medicine Hematology & Oncology
DX: D47.2 Monoclonal gammopathy (principal)
CPT/HCPCS: 36415; 82784; 83883; 84155; 84165

== ENCOUNTER 2024-02-01 14:19 | Outpatient (CLI) | payer MEDICARE, BC, SELFPAY ==
--- NOTE | ~2024-02-01 | XR_ITS ---
EXAMINATION: XR bone survey comp/metastic DATE: 02/01/2024 15:15 INDICATION: Monoclonal protein disease. Multiple M protein. TECHNIQUE: 32 views of a skeletal survey were obtained. COMPARISON: CT abdomen and pelvis 04/19/2023 FINDINGS: There is no pneumonia, pleural effusion, or pneumothorax. Cardiomegaly is noted. Surgical c lips in the right upper quadrant are likely from cholecystectomy. There is a total right knee arthrop lasty in near-anatomic alignment. There is a total left knee arthroplasty in near-anatomic alignment. IMPRESSION: 1. No evidence of malignancy. 2. Cardiomegaly. Reviewed, dictated and finalized at location A. OL GUIDANCE COUNSELOR
== END 2024-02-01 14:20 | disposition home or self-care (01) ==
PROVIDERS: PCP Internal Medicine; Referring Provider Internal Medicine Nephrology; Visit Provider Internal Medicine
DX: D47.2 Monoclonal gammopathy (principal); I51.7 Cardiomegaly
CPT/HCPCS: 77075

== ENCOUNTER 2024-05-27 09:49 | Outpatient (CLI) | payer MEDICARE, BC, SELFPAY ==
--- NOTE | ~2024-05-27 | XR_ITS ---
EXAMINATION: XR thoracic spine 2V DATE: 05/27/2024 10:11 INDICATION: Neck pain. TECHNIQUE: 3 views of thoracic spine were obtained. COMPARISON: Chest 2 views 04/12/2023 FINDINGS: There is 32 degrees dextroscoliosis of thoracic lumbar spine and 32 degrees levoscoliosis o f lumbar spine. Vertebral body heights are normal. There is mildly decreased disc height at many thor acic levels. There is moderately decreased disc height at T4-T5. There is severely decreased disc hei ght at T11-T12 with interbody fusion. Surgical clips in the right upper quadrant are likely from chol ecystectomy. IMPRESSION: 1. Moderate thoracic spondylosis. 2. Scoliosis. Reviewed, dictated and finalized at location A. WABLE ENERGY ENGINEER
--- NOTE | ~2024-05-27 | XR_ITS ---
EXAMINATION: XR_CERV2-3V_CR DATE: 05/27/2024 10:10 INDICATION: Neck pain. TECHNIQUE: 3 views of cervical spine were obtained. COMPARISON: Cervical spine radiographs 01/31/2023 FINDINGS: There is 11 degrees levoscoliosis of cervicothoracic spine. Vertebral body heights are norm al. There is moderately decreased disc height at C6-C7. There is multilevel severe facet joint osteoa rthritis. There is mild central canal stenosis at C6-C7. No prevertebral soft tissue swelling. IMPRESSION: 1. Moderate cervical spondylosis. 2. Cervicothoracic levoscoliosis. Reviewed, dictated and finalized at location A. ER WELDER
== END 2024-05-27 09:50 | disposition home or self-care (01) ==
LOC: GOSHIMG 09:49
PROVIDERS: PCP Nurse Practitioner; Visit Provider Nurse Practitioner
DX: M47.814 Spondylosis without myelopathy or radiculopathy, thoracic region (principal); M41.84 Other forms of scoliosis, thoracic region; M47.812 Spondylosis without myelopathy or radiculopathy, cervical region; M41.83 Other forms of scoliosis, cervicothoracic region
CPT/HCPCS: 72040; 72070

== ENCOUNTER 2024-06-03 08:16 | Outpatient (CLI) | payer MEDICARE, BC, SELFPAY ==
--- NOTE | 2024-05-21 15:02 | PC.NURSE ---
Pre Radiology instructions Report to the outpatient [facility] on date 06/03/24 at time _8:30 AM for procedure Time: 10:30 AM____ YOU MAY BE MONITORED AT HOSPITAL FOR UP TO 4 HOURS AFTER YOUR PROCEDURE. A visitor will be allowed to accompany the patient into the hospital. You and your visitor will be asked to self-screen and do not enter if you have any COVID symptoms. A mask is OPTIONAL within the hospital. Patients are to have no food or drink 6 hours prior to procedure time Driving will be restricted after the procedure, you must have a person to drive you home. Labs will be drawn in preop area and once reviewed, you will be taken to radiology area for procedure. When the procedure is completed, you will be taken to outpatient where you will be monitored for several hours. You may have one visitor in this area. Other than holding anti-coagulants, patient may take other medication(s) as scheduled. Prior to your appointment date patients are instructed to hold anti-coagulants after discussing with ordering provider to stop. If unable to discontinue anti-coagulants please notify radiologist. ? No aspirin or warfarin (Coumadin) for 7 days prior to the procedure. ? No clopidogrel (Plavix), ticagrelor (Brilinta), prasugrel (Effient) or dabigatran (Pradaxa) for 5 days prior to the procedure. ? No rivaroxaban (Xarelto), apixaban (Eliquis), dipyridamole (Aggrenox or Persantine) or cilostazol (Pletal) for 2 days prior to the procedure. Medications to discontinue per physician: _EXCEDRIN HOLD 7 DAYS PRE OP LAST DOSE 05/26/24 HOLD ELIQUIS 2 DAYS PRE OP LAST DOSE 05/31/24 Please leave all valuables, including medications, at home the day of procedure. The hospital will not accept responsibility for valuables. Wear comfortable, loose fitting clothing.? Follow any additional instructions given to you from ordering provider. Telephone instructions given to _PATIENT and asked if any additional questions and then verbalized understanding. Patient advised to call scheduling provider office or registration scheduling [phone] if any additional questions.
[2024-05-21 15:07] VITALS: BMI 33.6
[2024-06-03] VITALS (12 sets, daily range): BP systolic 132–163; BP diastolic 72–91; PULSE 53–60; RESP 14–18; TEMP 36.9; O2SAT 95–99
[2024-06-03 09:24] LABS: Prothrombin Time 13.5 Seconds (11.1-14.7)
--- NOTE | 2024-06-03 12:40 | SUR.PHASEII ---
Patient has reached 2 hour angelic post op. Patient was given clear liquids at this time.
[2024-06-03 12:44] LABS: Glucose Point of Care 92 mg/dl (65-105)
--- NOTE | 2024-06-03 14:40 | SUR.PHASEII ---
Junaid called at 1440. notified that patient is doing well and meets discharge requirements at this time. stats that patient can discharge at 1450.
== END 2024-06-03 14:52 | disposition home or self-care (01) ==
PROVIDERS: PCP Nurse Practitioner; Referring Provider Internal Medicine Nephrology; Visit Provider Radiology Diagnostic Radiology
PROC: (CPT 76942; principal; 2024-06-03 10:30)
DX: I12.9 Hypertensive chronic kidney disease with stage 1 through stage 4 chronic kidney disease, or unspecified chronic kidney disease (principal); E11.22 Type 2 diabetes mellitus with diabetic chronic kidney disease; N18.31 Chronic kidney disease, stage 3a; D89.2 Hypergammaglobulinemia, unspecified
CPT/HCPCS: 36415; 50200; 76942; 82948; 85610; 88300; 88329

== ENCOUNTER 2024-06-27 07:54 | Outpatient (CLI) | payer MEDICARE, BC, SELFPAY ==
--- OUTSIDE RECORDS SUMMARY | 2024-06-27 07:59 | XMS_ITS | Clinical Summary ---
Author Organization [facility] Address [address] [place] [address] Care Team Providers Care Machine Pecan Gatherer Name Role Phone Unavailable Primary Care Provider Unavailabl e Social History Tobacco Use Types Packs/Day Years Used Date Smoking Tobacco: Never Assessed Comments Unknown Sex and Gender Information Value Date Recorded Sex Assigned at Not on file Legal Sex Female 9:10 AM PST Gender Identity Not on file Sexual Orientation Not on file Plan of Treatment Not on file
--- OUTSIDE RECORDS SUMMARY | 2024-06-27 08:00 | XMS_ITS | Clinical Summary ---
Author Organization [facility] Address [address] [place] [address] Care Team Providers Care Unix Developer Name Role Phone Unavailable Primary Care Provider Unavailabl e Source Comments [facility],non-owned Affiliates and Associated Physician Practices is amultiple site organization consisting of ambulatory clinics and hospital sitesin [place], [place], [place] and [place]. This disclosure is being madepursuant to the Care Everywhere program and may not contain all information available regarding this patient. Last updated 17.[facility] Social History Tobacco Use Types Packs/Day Years Used Date Smoking Tobacco: Never Assessed Sex and Gender Information Value Date Recorded Sex Assigned at Not on file Gender Identity Not on file Sexual Orientation Not on file Plan of Treatment Health Maintenance Due Date Last Done Comments BONE DENSITY TESTING 1955 COLOGUARD (AGES 45-75) - COL ON CA SCREENING 1956 COLON MONITORING 1956 COLONOSCOPY - COLON CA SCREENING 1956 CT COLONOGRAPHY - COLON CA SCREENING 1955 Colorectal Cancer Screening 1955 FIT - COLON CA SCREENING 1956 FLEX SIG - COLON CA SCREENING 1956 LIPID TESTING 1955 MAMMOGRAM 1955 MEDICARE AWV 12 MONTHS 1955 HEPATITIS C SCREENING 01/19/1974 DTAP/TDAP/TD VACCINES (1 - Tdap) 01/23/1975 PNEUMOCOCCAL VACCINE 50+ (1 of 1 - PCV) 01/23/2006 ZOSTER VACCINE (1 of 2) 01/23/2006 COVID-19 VACCINE ( - 2023-2 5 season) 2023 INFLUENZA VACCINE (#1) 2023 DEPRESSION SCREENING 04/02/2024 Respiratory Syncytial Virus (RSV) Vaccine Pt: or over 60 yrs (1 - 1-dose 75+ series) 01/23/2031 HEPATITIS B VACCINE Aged Out No longe r eligible based on patient's age to complete this topic HIB VACCINE Aged Out No longer eligi ble based on patient's age to complete this topic HPV VACCINE Aged Out No longer eligi ble based on patient's age to complete this topic MENINGOCOCCAL (Group B) VACC INE SHARED DECISION-MAKING Aged Out No longer eligibl e based on patient's age to complete this topic MENINGOCOCCAL GROUPS A/C/Y/W VACCINE Aged Out No longer eligible b ased on patient's age to complete this topic Kari Marrero Personal/Family Self 1955
--- OUTSIDE RECORDS SUMMARY | 2024-06-27 08:00 | XMS_ITS | Encounter Summary ---
Author Organization [facility] Address [address] [place] [address] Care Team Providers Care Yarding And Folding Machine Operator Name Role Phone Unavailable Primary Care Provider Unavailabl e Encounter Details Date Type Department Care Team (Late st Contact Info) Description 03/09/2023 Lab Requisition [facility] - DermPath Lab [address] [place] [id number] Genesis Quintero MD [address] [id number] Neoplasm of uncertain behavior of skin Social History Tobacco Use Types Packs/Day Years Used Date Smoking Tobacco: Never Assessed Sex and Gender Information Value Date Recorded Sex Assigned at Not on file Gender Identity Not on file Sexual Orientation Not on file documented as of this encounter Plan of Treatment Not on file documented as of this encounter Procedures Procedure Name Priority Date/Time Associated Diagnosis Comments DERMATOPATHOLOGY Routine 03/09/2023 3:33 AM POLO COACH Neoplasm of uncertain behavior of skin documented in this encounter Results * DERMATOPATHOLOGY (03/09/2023 3:33 AM POLO COACH) Case Report Dermatopathology Report Case: [id number] Authorizing Provider: Genesis Quintero MD Collected: 03/09/2023 03:33 AM Ordering Location: [facility] D[facility] Lab Received: 03/12/2023 09:22 AM Pathologist: Eileen Loyola MD Specimens: A) - Skin, right lateral proximla upper arm B) - Skin, right suprapubic skin 12:53 PM POLO COACH DERMATOPATHOLOGY LABORATORY Final Diagnosis Specimen A. 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 The specimen consists of a shave biopsy measuring 7x6x1 mm. Jar 0. Specimen B: Received is one formalin filled container labeled with the patient's name and designated right suprapubic skin. The specimen consists of a shave biopsy measuring 15x6x3 mm. Jar 0. 3 12:53 PM [facility] DERMATOPATHOLOGY LABORATORY Microscopic Description Specimen A. SKIN, right lateral proximla upper arm: This is a compound nevus. There is a lentiginous proliferation of melanocytes between nevus nests of cells along the dermal-epidermal junction. There is underlying lamellar fibroplasia of the papillary dermis. The intradermal component is bland in appearance and matures with depth. (Compound Vicente's Nevus) Specimen B. SKIN, right suprapubic skin: Embedded in a fibrous cellular stroma there are numerous anastomosing narrow strands of basaloid cells. In areas, the collections of basaloid cells show peripheral palisading. In addition, histiocytes, lymphocytes, and multinucleated giant cells are present within the dermis. 3 12:53 PM [facility] DERMATOPATHOLOGY LABORATORY Disclaimer An external and internal positive and negative controls are appropriate for the histochemical, immunohistochemical and immunofluorescence stain(s) in this case (if any), except where stated explicitly. The performance characteristics of the stain(s) cited in this report were developed and its performance characteristic determined by the Dermatopathology Laboratory at [facility], directed by Dr. Miguel Angel Cruz. These tests need not be, and therefore are not, approved by the [place] Food and Drug Administration. The tests are used for clinical purposes. Billing Codes Specimen Charges Stain Charges 41504 [id number] 1 1 3 12:53 PM POLO COACH DERMATOPATHOLOGY LABORATORY Embedded Images 3 12:53 PM POLO COACH DERMATOPATHOLOGY LABORATORY Pathology/Cytology TISSUE SPECIMEN FROM SKIN / Unknown 03/09/2023 3:33 AM POLO COACH 03/12/2023 9:22 AM POLO COACH Miscellaneous samples (specimen) TISSUE SPECIMEN FROM SKIN / Unknown 03/09/2023 3:33 AM POLO COACH 03/12/2023 9:22 AM POLO COACH Genesis Quintero MD LAB - PATHOLOGY /CYTOLOGY ORDERABLES DERMATOPATHOLOGY LABORATORY [facility] - Department of Dermatology [facility] [address] [place] [address], [address] [phone] documented in this encounter Visit Diagnoses Diagnosis Neoplasm of uncertain behavior of skin documented in this encounter
--- OUTSIDE RECORDS SUMMARY | 2024-06-27 08:00 | XMS_ITS | Clinical Summary ---
Author Organization [facility] Address [address] [place] [address] Care Team Providers Care Dry Room Attendant Name Role Phone Ibrahima Ramos DO Primary Care Provider [phone] Referral, Self Unavailable Unavailable Spike Stevenson MD Unavailable [phone] Allergies Active Allergy Reactions Criticality Noted Date Comments Amoxicillin-Pot Clavulanate Vomiting Low 01/11/2021 Codeine Vomiting Low 04/19/2022 Fentanyl Other (See comments),Seizures High 01/11/2021 Patient reports cardiac arrest Flecainide Dizziness,Nausea only Low 04/27/2023 Niacin Itching Low 04/07/2022 Medications albuterol HFA (PROVENTIL HFA,VENTOLIN HFA,PROAIR HFA) 90 mcg/actuation inhalerIndication s:Acute Asthma Attack Inhale 2 puffs every 6 (six) hours as needed for wheezing Active sertraline (ZOLOFT) 100 mg tabletIndications :Generalized Anxiety Disorder Take 1 tablet (100 mg total) by mouth every morning Active levothyroxine (SYNTHROID) 50 mcg tabletIndications :hypothyroidism Take 1 tablet (50 mcg total) by mouth nightly Active acetaminophen-asp irin-caffeine (EXCEDRIN MIGRAINE) 250-250-65 mg per tabletIndications :Migraine,Pain Take 1 tablet by mouth every 6 (six) hours as needed Active Gemtesa 75 mg tabletIndications :Bladder Hyperactivity Take 75 mg by mouth nightly 2 Active erenumab-aooe 140 mg/mL auto-injectorIndi cations:Migraine Prevention Inject 1 mL (140 mg total) under the skin every 30 (thirty) days 1st of every month Active [id number]-uqrq-C mfolate-algal 27 mg iron-1.13 mg-581.92 mg capsuleIndication s:health Take 1 capsule by mouth every morning Active loratadine (CLARITIN) 10 mg tabletIndications :Allergic Rhinitis Take 1 tablet (10 mg total) by mouth every morning Active cholecalciferol, vitamin D3, (D3-5000 ORAL)Indications: supplement Take 5,000 Units by mouth every morning Active vit C,L-Il-kgmlw-lute in-zeaxan 250-90-40-1 mg capsuleIndication s:eye health Take 1 capsule by mouth nightly Active cyanocobalamin (Vitamin B-12) 1,000 mcg sublingual tabletIndications :Prevention of Vitamin B12 Deficiency Take 1 tablet (1,000 mcg total) by mouth nightly Active magnesium gluconate 200 mg tabletIndications :hypomagnesemia Take 1 tablet (200 mg total) by mouth every morning Active furosemide (LASIX) 20 mg tabletIndications :Edema, lower extremity Take 1 tablet (20 mg total) by mouth daily 90 tablet 3 3 Active apixaban (ELIQUIS) 5 mg tablet Take 1 tablet (5 mg total) by mouth 2 (two) times a day 180 tablet 1 3 Active Klor-Con M20 20 mEq CR tabletIndications :MGUS (monoclonal gammopathy of unknown significance) Take 1 tablet (20 mEq total) by mouth daily Active pantoprazole DR (PROTONIX) 40 mg EC tabletIndications :MGUS (monoclonal gammopathy of unknown significance) 1 tablet (40 mg total) 3 Active metoprolol XL (TOPROL-XL) 25 mg extended release tabletIndications :MGUS (monoclonal gammopathy of unknown significance) Take 1 tablet (25 mg total) by mouth daily 4 Active fluticasone propionate (FLONASE) 50 mcg/actuation nasal sprayIndications: MGUS (monoclonal gammopathy of unknown significance) Administer 1 spray into affected nostril(s) daily as needed Active Active Problems Problem Noted Date Diagnosed Date MGUS (monoclonal gammopathy of unknown significa nce) 03/03/2024 Recurrent incisional hernia 06/05/2022 Recurrent incisional hernia with incarceration 0 04/20/2022 Overview (04/20/2022): Added automatically from request for surgery [id number] Cardiomegaly 04/19/2022 Longstanding persistent atrial fibrillation 04/02 Other thrombophilia 04/19/2022 Surgical History Surgery Date Site/Laterality Comments HERNIA REPAIR 12/31/2020 - 01/30/2021 Primary repair of spigelian, open LAPAROSCOPIC INGUINAL HERNIA REPAIR 02/01/2020 - 03/01/2020 Left ? without mesh & Umbilical ARTHROPLASTY 04/02/2007 - 04/01/2008 Left Left knee arthroplasty CYST REMOVAL HYSTERECTOMY CARPAL TUNNEL RELEASE 04/02/1999 - 04/01/2000 DILATION AND CURETTAGE OF UTERUS HERNIA REPAIR 01/12/2021 Open incisional hernia repair OTHER SURGICAL HISTORY 12/20/2010 Shoulder Surgery TOTAL KNEE ARTHROPLASTY 11/16/2016 Right INCISIONAL HERNIA REPAIR 06/05/2022 Medical History Medical History Date Comments Hypertension Morbid obesity (HCC) Type 2 diabetes mellitus (HCC) Depression Thyroid disease Cardiomegaly Other complications of anesthesia, sequela 2010 Pt reports had cardiac arrest after Fentanyl given for thumb surgery Surgery done at [facility]. PONV (postoperative nausea and vomiting) Cardiac complication 2010 Pt reports had cardiac arrest after Fentanyl given for thumb surgery Surgery done at [facility]. Family History Medical History Relation Name Comments Cancer Brother Cancer Father Heart disease Father Hypertension Father Stroke Father Cancer Mother Heart disease Mother Hypertension Mother Stroke Mother Relation Name Status Comments Brother Father Mother Social History Tobacco Use Types Packs/Day Years Used Date Smoking Tobacco: Never Smokeless Tobacco: Never Tobacco Cessation:Counseling Given: Not Answered AUDIT-C Answer Date Recorded Q1: How often do you have a drink containing alc ohol? Never 06/05/2022 Average Number of Drinks Not on file 023 Frequency of Binge Drinking Not on file 08/2022 Personal Safety Answer Date Recorded Getting School Help Needed Denies 04/07 Comments No Sex and Gender Information Value Date Recorded Sex Assigned at Not on file Legal Sex Female 7:54 AM CHIEF CLERK SHELTER Gender Identity Female 02/15/2022 10:12 AM CHIEF CLERK SHELTER Sexual Orientation Straight 02/15/2022 10 :12 AM CHIEF CLERK SHELTER Obstetrics History Comments LMP: 1990 S/p Hysterectomy Last Filed Vital Signs Vital Sign Reading Time Taken Comments Blood Pressure 139/70 03/03/2024 2:03 PM CHIEF CLERK SHELTER Pulse 56 03/03/2024 2:03 PM CHIEF CLERK SHELTER Temperature 36.3 C (97.3 F) 03/03/2024 2:03 PM CHIEF CLERK SHELTER Respiratory Rate 16 03/03/2024 2:03 PM CHIEF CLERK SHELTER Oxygen Saturation 97% 03/03/2024 2:03 PM CHIEF CLERK SHELTER Inhaled Oxygen Concentration - - Weight 87.8 kg (193 lb 9.6 oz) 03/03/2024 2:03 P M CHIEF CLERK SHELTER Height 160 cm (5' 3 ) 03/03/2024 2:03 PM CHIEF CLERK SHELTER Body Mass Index 34.29 03/03/2024 2:03 PM CHIEF CLERK SHELTER Plan of Treatment Health Maintenance Due Date Last Done Comments Breast Cancer Screening-Mammogram 1956 Colon Cancer Screening-Colonoscopy 1955 Depression Screening 1955 Hepatitis C Screening 1955 Osteoporosis Screening-Bone Density Scan 1955 DTaP/Tdap/Td Vaccine (1 - Tdap) 01/23/1967 Hepatitis B Screening 01/23/1974 Well Visit 65+ 01/23/2021 Covid-19 Vaccine (3 - Moderna risk series) 01/05/2022 12/08/2021, 06/30/2021 Fall Risk Assessment 06/09/2023 06/08/2022 Influenza Vaccine (#1) 2023 12/08/2021, 2020 Pneumococcal vaccine 65+ Completed 06/13/2021 Zoster Vaccine Completed 08/24/2021, 06/13/2021 Medical Devices Implanted Type Area Snap Attacher Device Identifier Shelf Expiration Date Model / Serial / Lot [employer]/C R Bard [id number] Monofilament Soft Lightweight Low Profile Square - [id number] Implanted:Qty: 1 on 06/05/2022 by Bayron Mayes MD at [facility] Mesh N/A: Abdomen [employer] [id number] 09/27/2026 [id number] / / [id number] Insurance MEDICARE [facility] FEDERAL [facility] FEDERAL MEDICARE MEDICARE [facility] Advance Directives For more information, please contact: [phone] Documents on File Type Date Recorded Patient Clay Molder Expl anation ADVANCE DIRECTIVE 06/05/2022 7:11 AM Power of Lining Cementer-Medical * Full Code (Latest Code Status on File) Date Activated Date Inactivated Comments 06/05/2022 2:22 PM 06/08/2022 3:57 PM Care Teams Dry Room Attendant Relationship Specialty Start Date End Date Ibrahima Ramos DO PCP - General Internal Medicine 02/08/22 Referral, Self 02/20/24 Spike Stevenson MD [address] [facility] [address] IM BONE MARROW TR[employer]PLANT, , [address] [place] [address] Medical Oncologist/Laboratory Monitor Medical Oncology 02/27/24
--- OUTSIDE RECORDS SUMMARY | 2024-06-27 08:00 | XMS_ITS | Encounter Summary ---
Author Organization [facility] Address [address] [place] [address] Phone Care Team Providers Care Well Logging Operator Mud Analysis Name Role Phone Ibrahima Ramos DO Primary Care Provider [phone] Bayron Mayes MD Unavailable [phone] Young Mcgrath MD Unavailable Referral, Self Unavailable Unavailable Spike Stevenson MD Unavailable [phone] Encounter Details Date Type Department Care Team (Latest Contact Info) Description 01/15/2024 Orders Only [facility] Scanning, Provider Social History Tobacco Use Types Packs/Day Years Used Date Smoking Tobacco: Never Smokeless Tobacco: Never AUDIT-C Answer Date Recorded Q1: How often [...] on file Legal Sex Female 7:54 AM SENIOR IT PROJECT MANAGER Gender Identity Female 02/15/2022 10:12 AM SENIOR IT PROJECT MANAGER Sexual Orientation Straight 02/15/2022 10 :12 AM SENIOR IT PROJECT MANAGER documented as of this encounter Plan of Treatment Not on file documented as of this encounter Procedures Procedure Name Priority Date/Time Associated Diagnosis Comments SCAN - LABS 01/15/2024 documented in this encounter Results * SCAN - LABS (01/15/2024) us Provider Scanning Final Result documented in this encounter Visit Diagnoses Not on filedocumented in this encounter Care Teams Well Logging Operator Mud Analysis Relationship Specialty Start Date End Date Ibrahima Ramos DO PCP - General Internal Medicine 02/08/22 Bayron Mayes MD [address] [place] [address] Referring Physician General Surgery 06/04/23 03/04/24 Young Mcgrath MD [address] [place] [address]ONE MARROW TR[employer]PL[address], [address] [place] [address] Consulting Physician Medical Oncology 02/20/24 4 Referral, Self 02/20/24 Spike Stevenson MD [address] [place] [address] [employer] BONE MARROW TR[employer]PL[address], [address] [place] [address] Medical Oncologist/Surgical Assistant Certified Medical Oncology 02/27/24 documented as of this encounter
--- OUTSIDE RECORDS SUMMARY | 2024-06-27 08:00 | XMS_ITS | Encounter Summary ---
Author Organization [facility] Address [address] [place] [address] Phone Care Team Providers Care Curing Pickling Packer Name Role Phone Ibrahima Ramos DO Primary Care Provider [phone] Bayron Mayes MD Unavailable [phone] Young Mcgrath MD Unavailable Referral, Self Unavailable Unavailable Spike Stevenson MD Unavailable [phone] Encounter Details Date Type Department Care Team (Latest Contact Info) Description 02/06/2024 Orders Only [facility] Scanning, Provider Social [...] on file Legal Sex Female 7:54 AM SUPERVISOR WELDING EQUIPMENT REPAIRER Gender Identity Female 02/15/2022 10:12 AM SUPERVISOR WELDING EQUIPMENT REPAIRER Sexual Orientation Straight 02/15/2022 10 :12 AM SUPERVISOR WELDING EQUIPMENT REPAIRER documented as of this encounter Plan of Treatment Not on file documented as of this encounter Procedures Procedure Name Priority Date/Time Associated Diagnosis Comments SCAN - LABS 02/06/2024 documented in this encounter Results * SCAN - LABS (02/06/2024) us Provider Scanning Final Result documented in this encounter Visit Diagnoses Not on filedocumented in this encounter Care Teams Curing Pickling Packer Relationship Specialty Start Date End Date Ibrahima Ramos DO PCP - General Internal Medicine 02/08/22 Bayron Mayes MD [address] [place] [address] Referring Physician General Surgery 06/04/23 03/04/24 Young Mcgrath MD [address] [place] [address] BONE MARROW TR[employer]PLANT, [address] [place] [address] Consulting Physician Medical Oncology 02/20/24 4 Referral, Self 02/20/24 Spike Stevenson MD [address] [place] [address] BONE MARROW TR[employer]PL[employer], [address] [place] [address] Medical Oncologist/Parer Medical Oncology 02/27/24 documented as of this encounter
--- OUTSIDE RECORDS SUMMARY | 2024-06-27 08:00 | XMS_ITS | Clinical Summary ---
Author Organization [facility] Address [address] [place] [address] Care Team Providers Care Feed Mixer Helper Name Role Phone Unavailable Primary Care Provider Unavailabl e Allergies Active Allergy Reactions Criticality Noted Date Comments Codeine Nausea and Vomiting Low 04/19/2022 Fentanyl Seizure,Other (See Comments) High 01/11/2021 Patient reports cardiac arrest Flecainide Dizziness,Nausea and Vomiting Low 04/27/2023 Niacin Itching Low 04/07/2022 Medications albuterol sulfate HFA 90 mcg/actuation aerosol inhaler USE 1 INHALATION ORALLY EVERY 4 HOURS NEEDED FORALLERGIC SYMPTOMS Active Eliquis 5 mg tablet Take 5 mg by mouth 2 times daily. Active erenumab-aooe (AIMOVIG) 140 mg/mL Auto-Injector Inject 140 mg by subcutaneous injection. Active estradioL (ESTRACE) 1 mg tablet Take 1 mg by mouth daily. Active est estrogens-methy lTESTOSTERone (ESTRATEST) 1.25-2.5 mg tablet Take 1 Tablet by mouth daily. Active Synthroid 50 mcg tablet Take 50 mcg by mouth daily. Active lisinopriL (PRINIVIL) 20 mg tablet Take 20 mg by mouth daily. Active lovastatin (MEVACOR) 40 mg tablet TAKE 1 TABLET EVERY EVENING 4 Active metFORMIN (GLUCOPHAGE XR) 750 mg Extended Release 24 hour tablet Take 750 mg by mouth daily. Active pantoprazole (PROTONIX) 20 mg Tablet, Delayed Release (E.C.) 4 Active Klor-Con M20 20 mEq Extended Release tablet 4 Active Gemtesa 75 mg Tablet 1 tab by mouth daily Active sertraline (ZOLOFT) 100 mg tablet Take 100 mg by mouth. Active furosemide (LASIX) 20 mg tablet Take 20 mg by mouth daily. 3 Active Active Problems No known active problems Encounters Date Type Department Care Team Description 06/18/2024 External Device Data [facility] ABSTRACTION Provider, Abstract 06/07/2024 External Device Data [facility] ABSTRACTION Provider, Abstract 06/06/2024 External Device Data [facility] ABSTRACTION Provider, Abstract 06/03/2024 External Device Data [facility] ABSTRACTION Provider, Abstract 05/20/2024 External Device Data [facility] ABSTRACTION Provider, Abstract 04/29/2024 External Device Data [facility] ABSTRACTION Provider, Abstract 04/23/2024 External Device Data [facility] ABSTRACTION Provider, Abstract 04/23/2024 External Device Data [facility] ABSTRACTION Provider, Abstract 04/16/2024 External Device Data [facility] ABSTRACTION Provider, Abstract from Last 3 Months Family History Medical History Relation Name Comments Heart Disease Brother 1 77 Prostate Cancer Brother 1 77 Skin Cancer Brother 1 77 Heart Disease Brother 2 74 Skin Cancer Brother 2 74 No Known Problems Child Heart Disease Father Prostate Cancer Father Skin Cancer Father Acute myelogenous leukemia Mother Breast Cancer Mother Skin Cancer Mother Diabetes Sister 1 75 Kidney Cancer Sister 1 75 Skin Cancer Sister 1 75 Melanoma Sister 2 70 Skin Cancer Sister 2 70 Relation Name Status Comments Brother 1 77 Alive Brother 2 74 Alive Child Alive Father Mother Sister 1 75 Alive Sister 2 70 Alive Social History Tobacco Use Types Packs/Day Years Used Date Smoking Tobacco: Former Cigarettes 0.1 15 Q uit: 01/31/2000 Smokeless Tobacco: Never Tobacco Cessation:Counseling Given: Not Answered Comments:Smoked maybe two cigarettes a day on her lunch break Alcohol Use Standard Drinks/Week Comments Not Currently 0 (1 standard drink = 0.6 oz pure alcohol) never a big drinker at most 1 beer occassionally Comments Unknown Sex and Gender Information Value Date Recorded Sex Assigned at Not on file Legal Sex Female 11:04 AM CDT Gender Identity Not on file Sexual Orientation Not on file Last Filed Vital Signs Vital Sign Reading Time Taken Comments Blood Pressure 145/74 01/31/2024 1:29 PM CDT Pulse 53 01/31/2024 1:29 PM CDT Temperature 36.8 C (98.2 F) 01/31/2024 1:29 PM CDT Respiratory Rate 18 01/31/2024 1:29 PM CDT Oxygen Saturation 97% 01/31/2024 1:29 PM CDT Inhaled Oxygen Concentration - - Weight 85.7 kg (189 lb) 01/31/2024 1:29 PM CDT Height 160 cm (5' 3 ) 01/31/2024 1:29 PM CDT Body Mass Index 33.48 01/31/2024 1:29 PM CDT Plan of Treatment Health Maintenance Due Date Last Done Comments DIABETES ANNUAL FOOT EXAM 01/23/1974 DIABETES ANNUAL RETINAL EXAM 01/23/1974 DIABETES MICROALBUMIN ANNUAL SCREEN 01/23/1974 LDL CHOLESTEROL ANNUAL 01/23/1974 DTAP/TDAP/TD VACCINES (1 - Tdap) 01/23/1975 PNEUMOCOCCAL VACCINE 50+ YEARS (1 of 2 - PCV) 01/23/19 75 BREAST CANCER SCREENING 1996 COLORECTAL SCREENING 01/23/2001 Colorectal Cancer Screening 01/23/2001 FIT-DNA Q 3 years 01/23/2001 FIT/FOBT Q 1 year 01/23/2001 Flex Sig/CT Colonography Q 5 years 01/23/2001 ZOSTER VACCINE (1 of 2) 01/23/2006 RSV VACCINE (60+ or ) (1 - Risk 60-74 years 1-dose series) 2016 OSTEOPOROSIS SCREENING 01/23/2021 DIABETES HBA1C Q 6 MONTHS 11/23/2022 05/26/2022 INFLUENZA VACCINE (#1) 2023 01/13/2021 Insurance MEDICARE PART A AND B [facility]
--- OUTSIDE RECORDS SUMMARY | 2024-06-27 08:00 | XMS_ITS | Encounter Summary ---
Author Organization [facility] Address [address] [place] [address] Care Team Providers Care Varitypist Name Role Phone Unavailable Primary Care Provider Unavailabl e Prior Encounters Date Type Department Care Team Description 04/21/2019 Converted CPS Chart Documents [facility] [id number] [facility], [address] [phone] <No scans attached> 04/21/2019 Converted CPS Chart Documents [facility] [id number] [facility], [address] [address] <No scans attached> 04/21/2019 Converted 13x Documents [facility] [id number] [facility], [address] [place] [address] <No scans attached> 04/21/2019 Converted 13x Documents [facility] [id number] [facility], [facility] [address] [place] [address] <No scans attached> Plan of Treatment Not on file Procedures Procedure Name Priority Date/Time Associated Diagnosis Comments CANCELLED APPOINTMENT Routine 01/10/2021 12:00 AM PDT BITEWINGS - FOUR RADIOGRAPHIC IMAGES Routine 09/08/2020 12:00 AM PDT BITEWINGS - TWO RADIOGRAPHIC IMAGES Routine 09/08/2020 12:00 AM PDT ADDITIONAL X-RAY Routine 09/08/2020 12:0 0 AM PDT ADDITIONAL X-RAY Routine 09/08/2020 12:0 0 AM PDT ADDITIONAL X-RAY Routine 09/08/2020 12:0 0 AM PDT ADDITIONAL X-RAY Routine 09/08/2020 12:0 0 AM PDT SINGLE X-RAY Routine 09/08/2020 12:00 AM PDT INTRAORAL PHOTO Routine 09/08/2020 12:00 AM PDT INTRAORAL PHOTO Routine 09/08/2020 12:00 AM PDT INTRAORAL PHOTO Routine 09/08/2020 12:00 AM PDT INTRAORAL PHOTO Routine 09/08/2020 12:00 AM PDT PERIODIC ORAL EVALUATION - ESTABLISHED PATIENT Routine 07/08/2020 12:00 AM PDT PERIO MAINTENANCE Routine 07/08/2020 12: 00 AM PDT CANCELLED APPOINTMENT Routine 06/29/2020 12:00 AM PDT CANCELLED APPOINTMENT Routine 06/29/2020 12:00 AM PDT CANCELLED APPOINTMENT Routine 04/12/2020 12:00 AM PST CANCELLED APPOINTMENT Routine 04/12/2020 12:00 AM PST PERIODIC ORAL EVALUATION - ESTABLISHED PATIENT Routine 10/15/2019 12:00 AM PDT PERIO MAINTENANCE Routine 10/15/2019 12: 00 AM PDT BITEWINGS - FOUR RADIOGRAPHIC IMAGES Routine 10/15/2019 12:00 AM PDT ADDITIONAL X-RAY Routine 10/15/2019 12:0 0 AM PDT ADDITIONAL X-RAY Routine 10/15/2019 12:0 0 AM PDT ADDITIONAL X-RAY Routine 10/15/2019 12:0 0 AM PDT ADDITIONAL X-RAY Routine 10/15/2019 12:0 0 AM PDT ADDITIONAL X-RAY Routine 10/15/2019 12:0 0 AM PDT SINGLE X-RAY Routine 10/15/2019 12:00 AM PDT PERIODIC ORAL EVALUATION - ESTABLISHED PATIENT Routine 02/03/2019 12:00 AM PST PERIO MAINTENANCE Routine 02/03/2019 12: 00 AM PST ORAL HYGIENE INSTRUCTIONS Routine 2018 12:00 AM PST TOPICAL APPLICATION OF FLUORIDE VARNISH Routine 02/03/2019 12:00 AM PST BITEWINGS - FOUR RADIOGRAPHIC IMAGES Routine 02/03/2019 12:00 AM PST ADDITIONAL X-RAY Routine 02/03/2019 12:0 0 AM PST ADDITIONAL X-RAY Routine 02/03/2019 12:0 0 AM PST ADDITIONAL X-RAY Routine 02/03/2019 12:0 0 AM PST ADDITIONAL X-RAY Routine 02/03/2019 12:0 0 AM PST ADDITIONAL X-RAY Routine 02/03/2019 12:0 0 AM PST SINGLE X-RAY Routine 02/03/2019 12:00 AM PST CANCELLED APPOINTMENT Routine 12/10/2018 12:00 AM PDT 30 CEMENT CROWN Routine 09/09/2018 12:00 AM PDT ADDITIONAL X-RAY Routine 09/09/2018 12:0 0 AM PDT ADDITIONAL X-RAY Routine 09/09/2018 12:0 0 AM PDT SINGLE X-RAY Routine 09/09/2018 12:00 AM PDT SINGLE X-RAY Routine 09/09/2018 12:00 AM PDT SINGLE X-RAY Routine 08/26/2018 12:00 AM PDT SINGLE X-RAY Routine 08/26/2018 12:00 AM PDT CANCELLED APPOINTMENT Routine 08/21/2018 12:00 AM PDT 30 CORE BUILDUP, INCLUDING ANY PINS WHEN REQUIRED Routine 08/20/2018 12:00 AM PDT 3 CORE BUILDUP, INCLUDING ANY PINS WHEN REQUIRED Routine 08/20/2018 12:00 AM PDT 30 CERECFIRED CROWNPOST Routine 08/21/19 19 12:00 AM PDT CANCELLED APPOINTMENT Routine 08/19/2018 12:00 AM PDT CANCELLED APPOINTMENT Routine 08/12/2018 12:00 AM PDT 3 TREATMENT OF ROOT CANAL OBSTRUCTION; NON-SURGICAL ACCESS Routine 08/08/2018 12:00 AM PDT 31 ENDODONTIC THERAPY, MOLAR TOOTH (EXCLUDING FINAL CHRISTIAN) Routine 08/07/2018 12:00 AM PDT 3 ENDODONTIC THERAPY, MOLAR TOOTH (EXCLUDING FINAL CHRISTIAN) Routine 08/07/2018 12:00 AM PDT 3 TICKET CLERK CONSULT Routine 08/07/2018 12:00 AM PDT 4 PONTIC - PFG - POST Routine 08/05/2018 12:00 AM PDT 5 RETAINER CROWN - PFG - POST Routine 08/05/2018 12:00 AM PDT 3 RETAINER CROWN - PFG - POST Routine 08/05/2018 12:00 AM PDT 3 LIMITED ORAL EVALUATION - PROBLEM FOCUSED Routine 08/05/2018 12:00 AM PDT CHLORHEXIDINE Routine 08/01/2018 12:00 AM PDT 3 LIMITED ORAL EVALUATION - PROBLEM FOCUSED Routine 08/01/2018 12:00 AM PDT ORAL HYGIENE INSTRUCTIONS Routine 2018 12:00 AM PDT ORAL HYGIENE INSTRUCTIONS Routine 2018 12:00 AM PDT UL JAMIE DECON/QD Routine 08/01/2018 12:00 AM PDT UR JAMIE DECON/QD Routine 08/01/2018 12:00 AM PDT UL PERIODONTAL SCALING AND ROOT PLANING - ONE TO THREE TEETH PER QUADRANT Routine 08/01/2018 12:00 AM PDT UR PERIODONTAL SCALING AND ROOT PLANING - ONE TO THREE TEETH PER QUADRANT Routine 08/01/2018 12:00 AM PDT UR ANTIBACT IRR/QUAD Routine 08/01/2018 12:00 AM PDT UL ANTIBACT IRR/QUAD Routine 08/01/2018 12:00 AM PDT TOPICAL APPLICATION OF FLUORIDE VARNISH Routine 08/01/2018 12:00 AM PDT PLAN VISIT FEE Routine 03/06/2018 12:00 AM PST ORAL HYGIENE INSTRUCTIONS Routine 2017 12:00 AM PST PROPHYLAXIS - ADULT Routine 03/05/2018 1 2:00 AM PST PERIODIC ORAL EVALUATION - ESTABLISHED PATIENT Routine 03/05/2018 12:00 AM PST ORAL HYGIENE INSTRUCTIONS Routine 2017 12:00 AM PDT PROPHYLAXIS - ADULT Routine 08/22/2017 1 2:00 AM PDT PLAN VISIT FEE Routine 08/22/2017 12:00 AM PDT PERIODIC ORAL EVALUATION - ESTABLISHED PATIENT Routine 08/22/2017 12:00 AM PDT BITEWINGS - FOUR RADIOGRAPHIC IMAGES Routine 08/22/2017 12:00 AM PDT ADDITIONAL X-RAY Routine 08/22/2017 12:0 0 AM PDT ADDITIONAL X-RAY Routine 08/22/2017 12:0 0 AM PDT ADDITIONAL X-RAY Routine 08/22/2017 12:0 0 AM PDT ADDITIONAL X-RAY Routine 08/22/2017 12:0 0 AM PDT ADDITIONAL X-RAY Routine 08/22/2017 12:0 0 AM PDT SINGLE X-RAY Routine 08/22/2017 12:00 AM PDT CANCELLED APPOINTMENT Routine 07/11/2017 12:00 AM PDT CANCELLED APPOINTMENT Routine 07/02/2017 12:00 AM PDT CANCELLED APPOINTMENT Routine 06/29/2017 12:00 AM PDT CANCELLED APPOINTMENT Routine 06/06/2017 12:00 AM PST CANCELLED APPOINTMENT Routine 05/17/2017 12:00 AM PST ORAL HYGIENE INSTRUCTIONS Routine 2016 12:00 AM PDT PROPHYLAXIS - ADULT Routine 08/31/2016 1 2:00 AM PDT PLAN VISIT FEE Routine 08/31/2016 12:00 AM PDT PERIODIC ORAL EVALUATION - ESTABLISHED PATIENT Routine 08/31/2016 12:00 AM PDT ADDITIONAL X-RAY Routine 03/01/2016 12:0 0 AM PST ADDITIONAL X-RAY Routine 03/01/2016 12:0 0 AM PST SINGLE X-RAY Routine 03/01/2016 12:00 AM PST ORAL HYGIENE INSTRUCTIONS Routine 2015 12:00 AM PST PROPHYLAXIS - ADULT Routine 02/10/2016 1 2:00 AM PST PLAN VISIT FEE Routine 02/10/2016 12:00 AM PST PERIODIC ORAL EVALUATION - ESTABLISHED PATIENT Routine 02/10/2016 12:00 AM PST BITEWINGS - FOUR RADIOGRAPHIC IMAGES Routine 02/10/2016 12:00 AM PST ADDITIONAL X-RAY Routine 02/10/2016 12:0 0 AM PST ADDITIONAL X-RAY Routine 02/10/2016 12:0 0 AM PST ADDITIONAL X-RAY Routine 02/10/2016 12:0 0 AM PST ADDITIONAL X-RAY Routine 02/10/2016 12:0 0 AM PST ADDITIONAL X-RAY Routine 02/10/2016 12:0 0 AM PST SINGLE X-RAY Routine 02/10/2016 12:00 AM PST BITEWINGS - FOUR RADIOGRAPHIC IMAGES Routine 07/29/2015 12:00 AM PDT ADDITIONAL X-RAY Routine 07/29/2015 12:0 0 AM PDT ADDITIONAL X-RAY Routine 07/29/2015 12:0 0 AM PDT ADDITIONAL X-RAY Routine 07/29/2015 12:0 0 AM PDT ADDITIONAL X-RAY Routine 07/29/2015 12:0 0 AM PDT ADDITIONAL X-RAY Routine 07/29/2015 12:0 0 AM PDT SINGLE X-RAY Routine 07/29/2015 12:00 AM PDT ORAL HYGIENE INSTRUCTIONS Routine 2015 12:00 AM PDT PROPHYLAXIS - ADULT Routine 07/29/2015 1 2:00 AM PDT PLAN VISIT FEE Routine 07/29/2015 12:00 AM PDT PERIODIC ORAL EVALUATION - ESTABLISHED PATIENT Routine 07/29/2015 12:00 AM PDT ORAL HYGIENE INSTRUCTIONS Routine 2014 12:00 AM PDT PROPHYLAXIS - ADULT Routine 09/03/2014 1 2:00 AM PDT PERIODIC ORAL EVALUATION - ESTABLISHED PATIENT Routine 09/03/2014 12:00 AM PDT BITEWINGS - FOUR RADIOGRAPHIC IMAGES Routine 09/03/2014 12:00 AM PDT ADDITIONAL X-RAY Routine 09/03/2014 12:0 0 AM PDT ADDITIONAL X-RAY Routine 09/03/2014 12:0 0 AM PDT ADDITIONAL X-RAY Routine 09/03/2014 12:0 0 AM PDT ADDITIONAL X-RAY Routine 09/03/2014 12:0 0 AM PDT ADDITIONAL X-RAY Routine 09/03/2014 12:0 0 AM PDT SINGLE X-RAY Routine 09/03/2014 12:00 AM PDT PLAN VISIT FEE Routine 09/03/2014 12:00 AM PDT ORAL HYGIENE INSTRUCTIONS Routine 2013 12:00 AM PST PROPHYLAXIS - ADULT Routine 03/05/2014 1 2:00 AM PST PLAN VISIT FEE Routine 03/05/2014 12:00 AM PST PERIODIC ORAL EVALUATION - ESTABLISHED PATIENT Routine 03/05/2014 12:00 AM PST PERIODIC ORAL EVALUATION - ESTABLISHED PATIENT Routine 03/05/2014 12:00 AM PST BITEWINGS - FOUR RADIOGRAPHIC IMAGES Routine 03/05/2014 12:00 AM PST ADDITIONAL X-RAY Routine 03/05/2014 12:0 0 AM PST ADDITIONAL X-RAY Routine 03/05/2014 12:0 0 AM PST ADDITIONAL X-RAY Routine 03/05/2014 12:0 0 AM PST ADDITIONAL X-RAY Routine 03/05/2014 12:0 0 AM PST ADDITIONAL X-RAY Routine 03/05/2014 12:0 0 AM PST SINGLE X-RAY Routine 03/05/2014 12:00 AM PST ORAL HYGIENE INSTRUCTIONS Routine 2013 12:00 AM PDT PROPHYLAXIS - ADULT Routine 08/28/2013 1 2:00 AM PDT PLAN VISIT FEE Routine 08/28/2013 12:00 AM PDT PERIODIC ORAL EVALUATION - ESTABLISHED PATIENT Routine 08/28/2013 12:00 AM PDT BITEWINGS - FOUR RADIOGRAPHIC IMAGES Routine 08/28/2013 12:00 AM PDT ADDITIONAL X-RAY Routine 08/28/2013 12:0 0 AM PDT ADDITIONAL X-RAY Routine 08/28/2013 12:0 0 AM PDT ADDITIONAL X-RAY Routine 08/28/2013 12:0 0 AM PDT ADDITIONAL X-RAY Routine 08/28/2013 12:0 0 AM PDT ADDITIONAL X-RAY Routine 08/28/2013 12:0 0 AM PDT SINGLE X-RAY Routine 08/28/2013 12:00 AM PDT 10 CEMENT CROWN Routine 07/28/2013 12:00 AM PDT 9 CEMENT CROWN Routine 07/28/2013 12:00 AM PDT 8 CEMENT CROWN Routine 07/28/2013 12:00 AM PDT 7 CEMENT CROWN Routine 07/28/2013 12:00 AM PDT 10 CUSTOM SHADE Routine 07/18/2013 12:00 AM PDT 9 CUSTOM SHADE Routine 07/18/2013 12:00 AM PDT 8 CUSTOM SHADE Routine 07/18/2013 12:00 AM PDT 7 CUSTOM SHADE Routine 07/18/2013 12:00 AM PDT OFFICE VISIT FOR OBSERVATION (DURING REGULARLY SCHEDULED HOURS) - NO OTHER SERVICES PERFORMED Routine 07/18/2013 12:00 AM PDT 10 ZIRCONIA LAB MADE CROWN ANT Routine 07/15/2013 12:00 AM PDT 9 ZIRCONIA LAB MADE CROWN ANT Routine 07/15/2013 12:00 AM PDT 8 ZIRCONIA LAB MADE CROWN ANT Routine 07/15/2013 12:00 AM PDT 7 ZIRCONIA LAB MADE CROWN ANT Routine 07/15/2013 12:00 AM PDT 10 CORE BUILDUP, INCLUDING ANY PINS WHEN REQUIRED Routine 07/15/2013 12:00 AM PDT 9 CORE BUILDUP, INCLUDING ANY PINS WHEN REQUIRED Routine 07/15/2013 12:00 AM PDT 8 CORE BUILDUP, INCLUDING ANY PINS WHEN REQUIRED Routine 07/15/2013 12:00 AM PDT 7 CORE BUILDUP, INCLUDING ANY PINS WHEN REQUIRED Routine 07/15/2013 12:00 AM PDT FM BLEACH IN-OFFICE Routine 07/15/2013 1 2:00 AM PDT 10 ZIRCONIA COPING Routine 07/15/2013 12 :00 AM PDT 9 ZIRCONIA COPING Routine 07/15/2013 12: 00 AM PDT 8 ZIRCONIA COPING Routine 07/15/2013 12: 00 AM PDT 7 ZIRCONIA COPING Routine 07/15/2013 12: 00 AM PDT 1 LIMITED ORAL EVALUATION - PROBLEM FOCUSED Routine 07/15/2013 12:00 AM PDT OFFICE VISIT FOR OBSERVATION (DURING REGULARLY SCHEDULED HOURS) - NO OTHER SERVICES PERFORMED Routine 04/30/2013 12:00 AM PST TREATMENT OF COMPLICATIONS (POST-SURGICAL) - UNUSUAL CIRCUMSTANCES, BY REPORT Routine 03/27/2013 12:00 AM PST 4 EXTRACTION, ERUPTED TOOTH REQUIRING REMOVAL OF BONE AND/OR SECTIONING OF TOOTH Routine 03/15/2013 12:00 AM PST 5 UNSPECIFIED FIXED PROSTHODONTIC PROCEDURE, BY REPORT Routine 03/04/2013 12:00 AM PST 4 UNSPECIFIED FIXED PROSTHODONTIC PROCEDURE, BY REPORT Routine 03/04/2013 12:00 AM PST 3 UNSPECIFIED FIXED PROSTHODONTIC PROCEDURE, BY REPORT Routine 03/04/2013 12:00 AM PST 4 PONTIC - PFG - POST Routine 02/10/2013 12:00 AM PST 5 RETAINER CROWN - PFG - POST Routine 02/10/2013 12:00 AM PST 3 RETAINER CROWN - PFG - POST Routine 02/10/2013 12:00 AM PST 4 LIMITED ORAL EVALUATION - PROBLEM FOCUSED Routine 02/10/2013 12:00 AM PST ADDITIONAL X-RAY Routine 02/10/2013 12:0 0 AM PST SINGLE X-RAY Routine 02/10/2013 12:00 AM PST INTRAORAL PHOTO Routine 02/10/2013 12:00 AM PST ORAL HYGIENE INSTRUCTIONS Routine 2012 12:00 AM PDT PROPHYLAXIS - ADULT Routine 01/27/2013 1 2:00 AM PDT PERIODIC ORAL EVALUATION - ESTABLISHED PATIENT Routine 01/27/2013 12:00 AM PDT BITEWINGS - FOUR RADIOGRAPHIC IMAGES Routine 01/27/2013 12:00 AM PDT ADDITIONAL X-RAY Routine 01/27/2013 12:0 0 AM PDT ADDITIONAL X-RAY Routine 01/27/2013 12:0 0 AM PDT ADDITIONAL X-RAY Routine 01/27/2013 12:0 0 AM PDT ADDITIONAL X-RAY Routine 01/27/2013 12:0 0 AM PDT ADDITIONAL X-RAY Routine 01/27/2013 12:0 0 AM PDT SINGLE X-RAY Routine 01/27/2013 12:00 AM PDT ORAL HYGIENE INSTRUCTIONS Routine 2012 12:00 AM PDT PROPHYLAXIS - ADULT Routine 07/22/2012 1 2:00 AM PDT PERIODIC ORAL EVALUATION - ESTABLISHED PATIENT Routine 07/22/2012 12:00 AM PDT BITEWINGS - FOUR RADIOGRAPHIC IMAGES Routine 07/22/2012 12:00 AM PDT ADDITIONAL X-RAY Routine 07/22/2012 12:0 0 AM PDT ADDITIONAL X-RAY Routine 07/22/2012 12:0 0 AM PDT ADDITIONAL X-RAY Routine 07/22/2012 12:0 0 AM PDT ADDITIONAL X-RAY Routine 07/22/2012 12:0 0 AM PDT ADDITIONAL X-RAY Routine 07/22/2012 12:0 0 AM PDT SINGLE X-RAY Routine 07/22/2012 12:00 AM PDT PLAN VISIT FEE Routine 01/16/2012 12:00 AM PDT PERIODIC ORAL EVALUATION - ESTABLISHED PATIENT Routine 01/15/2012 12:00 AM PDT PROPHYLAXIS - ADULT Routine 01/15/2012 1 2:00 AM PDT BITEWINGS - FOUR RADIOGRAPHIC IMAGES Routine 01/15/2012 12:00 AM PDT ADDITIONAL X-RAY Routine 01/15/2012 12:0 0 AM PDT ADDITIONAL X-RAY Routine 01/15/2012 12:0 0 AM PDT ADDITIONAL X-RAY Routine 01/15/2012 12:0 0 AM PDT ADDITIONAL X-RAY Routine 01/15/2012 12:0 0 AM PDT ADDITIONAL X-RAY Routine 01/15/2012 12:0 0 AM PDT SINGLE X-RAY Routine 01/15/2012 12:00 AM PDT PERIODIC ORAL EVALUATION - ESTABLISHED PATIENT Routine 04/12/2011 12:00 AM PST BITEWINGS - FOUR RADIOGRAPHIC IMAGES Routine 04/12/2011 12:00 AM PST ADDITIONAL X-RAY Routine 04/12/2011 12:0 0 AM PST ADDITIONAL X-RAY Routine 04/12/2011 12:0 0 AM PST ADDITIONAL X-RAY Routine 04/12/2011 12:0 0 AM PST ADDITIONAL X-RAY Routine 04/12/2011 12:0 0 AM PST ADDITIONAL X-RAY Routine 04/12/2011 12:0 0 AM PST SINGLE X-RAY Routine 04/12/2011 12:00 AM PST PROPHYLAXIS - ADULT Routine 04/12/2011 1 2:00 AM PST PLAN VISIT FEE Routine 04/12/2011 12:00 AM PST PROPHYLAXIS - ADULT Routine 09/14/2010 1 2:00 AM PDT PERIODIC ORAL EVALUATION - ESTABLISHED PATIENT Routine 09/14/2010 12:00 AM PDT BITEWINGS - FOUR RADIOGRAPHIC IMAGES Routine 09/14/2010 12:00 AM PDT ADDITIONAL X-RAY Routine 09/14/2010 12:0 0 AM PDT ADDITIONAL X-RAY Routine 09/14/2010 12:0 0 AM PDT ADDITIONAL X-RAY Routine 09/14/2010 12:0 0 AM PDT ADDITIONAL X-RAY Routine 09/14/2010 12:0 0 AM PDT ADDITIONAL X-RAY Routine 09/14/2010 12:0 0 AM PDT SINGLE X-RAY Routine 09/14/2010 12:00 AM PDT PLAN VISIT FEE Routine 09/14/2010 12:00 AM PDT PROPHYLAXIS - ADULT Routine 08/19/2009 1 2:00 AM PDT PERIODIC ORAL EVALUATION - ESTABLISHED PATIENT Routine 08/19/2009 12:00 AM PDT BITEWINGS - FOUR RADIOGRAPHIC IMAGES Routine 08/19/2009 12:00 AM PDT ADDITIONAL X-RAY Routine 08/19/2009 12:0 0 AM PDT ADDITIONAL X-RAY Routine 08/19/2009 12:0 0 AM PDT ADDITIONAL X-RAY Routine 08/19/2009 12:0 0 AM PDT ADDITIONAL X-RAY Routine 08/19/2009 12:0 0 AM PDT ADDITIONAL X-RAY Routine 08/19/2009 12:0 0 AM PDT SINGLE X-RAY Routine 08/19/2009 12:00 AM PDT PLAN VISIT FEE Routine 08/19/2009 12:00 AM PDT BITEWINGS - FOUR RADIOGRAPHIC IMAGES Routine 11/02/2008 12:00 AM PDT ADDITIONAL X-RAY Routine 11/02/2008 12:0 0 AM PDT ADDITIONAL X-RAY Routine 11/02/2008 12:0 0 AM PDT ADDITIONAL X-RAY Routine 11/02/2008 12:0 0 AM PDT ADDITIONAL X-RAY Routine 11/02/2008 12:0 0 AM PDT PROPHYLAXIS - ADULT Routine 11/02/2008 1 2:00 AM PDT PERIODIC ORAL EVALUATION - ESTABLISHED PATIENT Routine 11/02/2008 12:00 AM PDT PLAN VISIT FEE Routine 11/02/2008 12:00 AM PDT 14 LIMITED ORAL EVALUATION - PROBLEM FOCUSED Routine 06/26/2008 12:00 AM PDT 12 LIMITED ORAL EVALUATION - PROBLEM FOCUSED Routine 06/26/2008 12:00 AM PDT 20 DO AMALGAM 2 SURFACE Routine 05/04/19 09 12:00 AM PST 19 ENDODONTIC THERAPY, MOLAR TOOTH (EXCLUDING FINAL CHRISTIAN) Routine 05/04/2008 12:00 AM PST 4 ENDODONTIC THERAPY, PREMOLAR TOOTH (EXCLUDING FINAL CHRISTIAN) Routine 05/04/2008 12:00 AM PST 5 MODL CEREC ONLAY 4 SURF Routine 2008 12:00 AM PST 19 CROWN PFM POST Routine 05/04/2008 12: 00 AM PST 14 CROWN PFM POST Routine 05/04/2008 12: 00 AM PST 12 CROWN PFM POST Routine 05/04/2008 12: 00 AM PST 4 CROWN PFM POST Routine 05/04/2008 12:0 0 AM PST 3 CROWN PFM POST Routine 05/04/2008 12:0 0 AM PST 30 CROWN PFM POST Routine 05/04/2008 12: 00 AM PST 13 CROWN PFM POST Routine 05/04/2008 12: 00 AM PST 14 M ARESTIN Routine 05/04/2008 12:00 AM PST 12 M ARESTIN Routine 05/04/2008 12:00 AM PST 14 CEREC CROWN POST Routine 05/04/2008 1 2:00 AM PST 12 CEREC CROWN POST Routine 05/04/2008 1 2:00 AM PST PROPHYLAXIS - ADULT Routine 05/04/2008 1 2:00 AM PST PERIODIC ORAL EVALUATION - ESTABLISHED PATIENT Routine 05/04/2008 12:00 AM PST BITEWINGS - FOUR RADIOGRAPHIC IMAGES Routine 05/04/2008 12:00 AM PST ADDITIONAL X-RAY Routine 05/04/2008 12:0 0 AM PST ADDITIONAL X-RAY Routine 05/04/2008 12:0 0 AM PST ADDITIONAL X-RAY Routine 05/04/2008 12:0 0 AM PST ADDITIONAL X-RAY Routine 05/04/2008 12:0 0 AM PST INTRAORAL PHOTO Routine 05/04/2008 12:00 AM PST INTRAORAL PHOTO Routine 05/04/2008 12:00 AM PST INTRAORAL PHOTO Routine 05/04/2008 12:00 AM PST INTRAORAL PHOTO Routine 05/04/2008 12:00 AM PST PLAN VISIT FEE Routine 05/04/2008 12:00 AM PST 9 MIDFL COMPOSITE FILLING Routine 2008 12:00 AM PST 8 MIDFL COMPOSITE FILLING Routine 2008 12:00 AM PST 9 MIDFL COMPOSITE FILLING Routine 2008 12:00 AM PST PLAN VISIT FEE Routine 01/07/2008 12:00 AM PDT 5 MOD CEREC INLAY 3+ SURF Routine 2007 12:00 AM PDT PLAN VISIT FEE Routine 11/01/2007 12:00 AM PDT BITEWINGS - FOUR RADIOGRAPHIC IMAGES Routine 10/31/2007 12:00 AM PDT ADDITIONAL X-RAY Routine 10/31/2007 12:0 0 AM PDT ADDITIONAL X-RAY Routine 10/31/2007 12:0 0 AM PDT ADDITIONAL X-RAY Routine 10/31/2007 12:0 0 AM PDT ADDITIONAL X-RAY Routine 10/31/2007 12:0 0 AM PDT PROPHYLAXIS - ADULT Routine 10/31/2007 1 2:00 AM PDT PERIODIC ORAL EVALUATION - ESTABLISHED PATIENT Routine 10/31/2007 12:00 AM PDT MISSED APPOINTMENT Routine 10/18/2007 12 :00 AM PDT CANCELLED APPOINTMENT Routine 11/26/2006 12:00 AM PDT 30 CEMENT CROWN Routine 11/05/2006 12:00 AM PDT ADDITIONAL X-RAY Routine 11/05/2006 12:0 0 AM PDT 30 CROWN PFG POST Routine 10/09/2006 12: 00 AM PDT 30 CORE BUILDUP, INCLUDING ANY PINS WHEN REQUIRED Routine 10/09/2006 12:00 AM PDT ROTADENT TOOTHBRUSH Routine 09/13/2006 1 2:00 AM PDT BITEWINGS - FOUR RADIOGRAPHIC IMAGES Routine 09/13/2006 12:00 AM PDT ADDITIONAL X-RAY Routine 09/13/2006 12:0 0 AM PDT ADDITIONAL X-RAY Routine 09/13/2006 12:0 0 AM PDT ADDITIONAL X-RAY Routine 09/13/2006 12:0 0 AM PDT ADDITIONAL X-RAY Routine 09/13/2006 12:0 0 AM PDT ADDITIONAL X-RAY Routine 09/13/2006 12:0 0 AM PDT ADDITIONAL X-RAY Routine 09/13/2006 12:0 0 AM PDT PROPHYLAXIS - ADULT Routine 09/13/2006 1 2:00 AM PDT OFFICE VISIT FOR OBSERVATION (DURING REGULARLY SCHEDULED HOURS) - NO OTHER SERVICES PERFORMED Routine 09/13/2006 12:00 AM PDT PERIODIC ORAL EVALUATION - ESTABLISHED PATIENT Routine 09/13/2006 12:00 AM PDT INTRAORAL PHOTO Routine 09/13/2006 12:00 AM PDT INTRAORAL PHOTO Routine 09/13/2006 12:00 AM PDT INTRAORAL PHOTO Routine 09/13/2006 12:00 AM PDT INTRAORAL PHOTO Routine 09/13/2006 12:00 AM PDT INTRAORAL PHOTO Routine 09/13/2006 12:00 AM PDT INTRAORAL PHOTO Routine 09/13/2006 12:00 AM PDT BITEWINGS - FOUR RADIOGRAPHIC IMAGES Routine 05/11/2005 12:00 AM PST ADDITIONAL X-RAY Routine 05/11/2005 12:0 0 AM PST ADDITIONAL X-RAY Routine 05/11/2005 12:0 0 AM PST PROPHYLAXIS - ADULT Routine 05/11/2005 1 2:00 AM PST OFFICE VISIT FOR OBSERVATION (DURING REGULARLY SCHEDULED HOURS) - NO OTHER SERVICES PERFORMED Routine 05/11/2005 12:00 AM PST PERIODIC ORAL EVALUATION - ESTABLISHED PATIENT Routine 05/11/2005 12:00 AM PST INTRAORAL PHOTO Routine 05/11/2005 12:00 AM PST INTRAORAL PHOTO Routine 05/11/2005 12:00 AM PST INTRAORAL PHOTO Routine 05/11/2005 12:00 AM PST INTRAORAL PHOTO Routine 05/11/2005 12:00 AM PST INTRAORAL PHOTO Routine 05/11/2005 12:00 AM PST INTRAORAL PHOTO Routine 05/11/2005 12:00 AM PST BITEWINGS - FOUR RADIOGRAPHIC IMAGES Routine 05/17/2004 12:00 AM PST ADDITIONAL X-RAY Routine 05/17/2004 12:0 0 AM PST ADDITIONAL X-RAY Routine 05/17/2004 12:0 0 AM PST OFFICE VISIT FOR OBSERVATION (DURING REGULARLY SCHEDULED HOURS) - NO OTHER SERVICES PERFORMED Routine 05/17/2004 12:00 AM PST PERIODIC ORAL EVALUATION - ESTABLISHED PATIENT Routine 05/17/2004 12:00 AM PST INTRAORAL PHOTO Routine 05/17/2004 12:00 AM PST INTRAORAL PHOTO Routine 05/17/2004 12:00 AM PST INTRAORAL PHOTO Routine 05/17/2004 12:00 AM PST INTRAORAL PHOTO Routine 05/17/2004 12:00 AM PST INTRAORAL PHOTO Routine 05/17/2004 12:00 AM PST BITEWINGS - FOUR RADIOGRAPHIC IMAGES Routine 09/14/2003 12:00 AM PDT ADDITIONAL X-RAY Routine 09/14/2003 12:0 0 AM PDT ADDITIONAL X-RAY Routine 09/14/2003 12:0 0 AM PDT ADDITIONAL X-RAY Routine 09/14/2003 12:0 0 AM PDT ADDITIONAL X-RAY Routine 09/14/2003 12:0 0 AM PDT ADDITIONAL X-RAY Routine 09/14/2003 12:0 0 AM PDT SINGLE X-RAY Routine 09/14/2003 12:00 AM PDT PROPHYLAXIS - ADULT Routine 09/14/2003 1 2:00 AM PDT PERIODIC ORAL EVALUATION - ESTABLISHED PATIENT Routine 09/14/2003 12:00 AM PDT BITEWINGS - FOUR RADIOGRAPHIC IMAGES Routine 11/26/2002 12:00 AM PDT ADDITIONAL X-RAY Routine 11/26/2002 12:0 0 AM PDT ADDITIONAL X-RAY Routine 11/26/2002 12:0 0 AM PDT ADDITIONAL X-RAY Routine 11/26/2002 12:0 0 AM PDT ADDITIONAL X-RAY Routine 11/26/2002 12:0 0 AM PDT ADDITIONAL X-RAY Routine 11/26/2002 12:0 0 AM PDT ADDITIONAL X-RAY Routine 11/26/2002 12:0 0 AM PDT PROPHYLAXIS - ADULT Routine 11/26/2002 1 2:00 AM PDT 1 OFFICE VISIT FOR OBSERVATION (DURING REGULARLY SCHEDULED HOURS) - NO OTHER SERVICES PERFORMED Routine 11/26/2002 12:00 AM PDT PERIODIC ORAL EVALUATION - ESTABLISHED PATIENT Routine 11/26/2002 12:00 AM PDT INTRAORAL PHOTO Routine 11/26/2002 12:00 AM PDT PROPHYLAXIS - ADULT Routine 02/12/2002 1 2:00 AM PST OFFICE VISIT FOR OBSERVATION (DURING REGULARLY SCHEDULED HOURS) - NO OTHER SERVICES PERFORMED Routine 02/12/2002 12:00 AM PST INTRAORAL - COMPREHENSIVE SERIES OF RADIOGRAPHIC IMAGES Routine 02/11/2002 12:00 AM PST OFFICE VISIT FOR OBSERVATION (DURING REGULARLY SCHEDULED HOURS) - NO OTHER SERVICES PERFORMED Routine 02/11/2002 12:00 AM PST COMPREHENSIVE ORAL EVALUATION - NEW OR ESTABLISHED PATIENT Routine 02/11/2002 12:00 AM PST Visit Diagnoses Not on file
--- OUTSIDE RECORDS SUMMARY | 2024-06-27 08:00 | XMS_ITS | Encounter Summary ---
Author Organization [facility] Address [address] [place] [address] Phone Care Team Providers Care Distribution Sales Manager Name Role Phone Ibrahima Ramos DO Primary Care Provider [phone] Bayron Mayes MD Unavailable [phone] Young Mcgrath MD Unavailable Referral, Self Unavailable Unavailable Spike Stevenson MD Unavailable [phone] Encounter Details Date Type Department Care Team (Latest Contact Info) Description 02/04/2024 Orders Only [facility] Scanning, Provider Social [...] on file Legal Sex Female 7:54 AM FUGITIVE INVESTIGATOR Gender Identity Female 02/15/2022 10:12 AM FUGITIVE INVESTIGATOR Sexual Orientation Straight 02/15/2022 10 :12 AM FUGITIVE INVESTIGATOR documented as of this encounter Plan of Treatment Not on file documented as of this encounter Procedures Procedure Name Priority Date/Time Associated Diagnosis Comments SCAN - LABS 02/04/2024 documented in this encounter Results * SCAN - LABS (02/04/2024) us Provider Scanning Final Result documented in this encounter Visit Diagnoses Not on filedocumented in this encounter Care Teams Distribution Sales Manager Relationship Specialty Start Date End Date Ibrahima Ramos DO PCP - General Internal Medicine 02/08/22 Bayron Mayes MD [address] [place] [address] Referring Physician General Surgery 06/04/23 03/04/24 Young Mcgrath MD [address] [place] 8 [address] IM BONE MARROW TRANSPLANT, 5TH, [address] [place] [address] Consulting Physician Medical Oncology 02/20/24 4 Referral, Self 02/20/24 Spike Stevenson MD [address] 8 DIV IM BONE MARROW TRANSPLANT, 5TH, [address] [place] [address] Medical Oncologist/Railroad Emergency Services Manager Medical Oncology 02/27/24 documented as of this encounter
--- OUTSIDE RECORDS SUMMARY | 2024-06-27 08:00 | XMS_ITS | Encounter Summary ---
Author Organization [facility] Address [address] [place] [address] Phone Care Team Providers Care Director Speech Language Name Role Phone Ibrahima Ramos DO Primary Care Provider [phone] Bayron Mayes MD Unavailable [phone] Young Mcgrath MD Unavailable Referral, Self Unavailable Unavailable Spike Stevenson MD Unavailable [phone] Encounter Details Date Type Department Care Team (Latest Contact Info) Description 01/07/2024 Orders Only [facility] Scanning, Provider Social [...] on file Legal Sex Female 7:54 AM CHAIN PERSON Gender Identity Female 02/15/2022 10:12 AM CHAIN PERSON Sexual Orientation Straight 02/15/2022 10 :12 AM CHAIN PERSON documented as of this encounter Plan of Treatment Not on file documented as of this encounter Procedures Procedure Name Priority Date/Time Associated Diagnosis Comments SCAN - LABS 01/07/2024 documented in this encounter Results * SCAN - LABS (01/07/2024) us Provider Scanning Final Result documented in this encounter Visit Diagnoses Not on filedocumented in this encounter Care Teams Director Speech Language Relationship Specialty Start Date End Date Ibrahima Ramos DO PCP - General Internal Medicine 02/08/22 Bayron Mayes MD [address] [place] [address] Referring Physician General Surgery 06/04/23 03/04/24 Young Mcgrath MD [address] 8 DIV IM BONE MARROW TRANSPLANT, 5TH, [address] [address] Consulting Physician Medical Oncology 02/20/24 4 Referral, Self 02/20/24 Spike Stevenson MD [address] 8 DIV IM BONE MARROW TRANSPLANT, 5TH, [address] [address] Medical Oncologist/Manager Project Management Medical Oncology 02/27/24 documented as of this encounter
--- OUTSIDE RECORDS SUMMARY | 2024-06-27 08:00 | XMS_ITS | Referral Summary ---
Author Organization [facility] Address [address] [place] [address] Care Team Providers Care Tipple Tender Name Role Phone Ibrahima Ramos DO Primary Care Provider [phone] Referral, Self Unavailable Unavailable Spike Stevenson MD Unavailable [phone] Allergies Active Allergy Reactions Criticality Noted Date [...] (thirty) days 1st of every month Active wubgdoew16-hzwu-R mfolate-algal 27 mg iron-1.13 mg-581.92 mg capsuleIndication s:health Take 1 capsule by mouth every morning Active loratadine (CLARITIN) 10 mg tabletIndications :Allergic Rhinitis Take 1 tablet (10 mg total) by mouth every morning Active cholecalciferol, vitamin D3, (D3-5000 ORAL)Indications: supplement Take 5,000 Units by mouth every morning Active vit C,G-Zq-cshuq-lute in-zeaxan 250-90-40-1 mg capsuleIndication s:eye health Take [...] (04/20/2022): Added automatically from request for surgery [id number] Cardiomegaly 04/19/2022 Longstanding persistent atrial fibrillation 04/02 Other thrombophilia 04/19/2022 Social History Tobacco Use Types Packs/Day Years [...] on file Legal Sex Female 7:54 AM CASE BRIEFER Gender Identity Female 02/15/2022 10:12 AM CASE BRIEFER Sexual Orientation Straight 02/15/2022 10 :12 AM CASE BRIEFER Last Filed Vital Signs Vital Sign Reading Time Taken Comments Blood Pressure 139/70 03/03/2024 2:03 PM CASE BRIEFER Pulse 56 03/03/2024 2:03 PM CASE BRIEFER Temperature 36.3 C (97.3 F) 03/03/2024 2:03 PM CASE BRIEFER Respiratory Rate 16 03/03/2024 2:03 PM CASE BRIEFER Oxygen Saturation 97% 03/03/2024 2:03 PM CASE BRIEFER Inhaled Oxygen Concentration - - Weight 87.8 kg (193 lb 9.6 oz) 03/03/2024 2:03 P M CASE BRIEFER Height 160 cm (5' 3 ) 03/03/2024 2:03 PM CASE BRIEFER Body Mass Index 34.29 03/03/2024 2:03 PM CASE BRIEFER Plan of Treatment Not on file Medical Devices Implanted Type Area Brand Marketing Manager Device Identifier Shelf Expiration Date Model / Serial / Lot [employer]ol Inc/C R Bard [id number] Monofilament Soft Lightweight Low Profile Square - [id number] Implanted:Qty: 1 on 06/05/2022 by Bayron Mayes MD at [facility] Mesh N/A: Abdomen [employer]/C R Bard [id number] 09/27/2026 [id number] / / [id number] [place] [address] [facility] FEDERAL [facility] FEDERAL MEDICARE MEDICARE [facility] Advance Directives For more information, please contact: [phone] Documents on File Type Date Recorded Patient Bar Steward Expl anation ADVANCE DIRECTIVE 06/05/2022 7:11 AM Power of Oil Agent-Medical * Full Code (Latest Code Status on File) Date Activated Date Inactivated Comments 06/05/2022 2:22 PM 06/08/2022 3:57 PM Care Teams Tipple Tender Relationship Specialty Start Date End Date Ibrahima Ramos DO PCP - General Internal Medicine 02/08/22 Referral, Self 02/20/24 Spike Stevenson MD [address] [facility] 8 DIV IM BONE MARROW TRANSPLANT, , [place] [address] Medical Oncologist/Surgery Assistant Medical Oncology 02/27/24
== END 2024-06-27 07:55 | disposition home or self-care (01) ==
PROVIDERS: PCP Nurse Practitioner; Visit Provider Nurse Practitioner
DX: H93.13 Tinnitus, bilateral (principal); E11.9 Type 2 diabetes mellitus without complications; K21.9 Gastro-esophageal reflux disease without esophagitis; Z98.890 Other specified postprocedural states; R30.0 Dysuria
CPT/HCPCS: 92557; 92567

== ENCOUNTER 2024-07-21 11:18 | Outpatient (CLI) | payer MEDICARE, BC, SELFPAY ==
--- NOTE | ~2024-07-21 | XR_ITS ---
Right Hand Technique: PA, oblique, and lateral views were obtained. Clinical History: Arthritis Findings: No acute fracture or dislocation is seen. There is advanced degenerative change of the base of the thumb with possible prior trapezium resection. There are mild degenerative changes of the DIP joints of the fingers.. Soft tissues are unremarkable. Impression: Degenerative changes, as detailed above. Possible prior trapezium resection. Reviewed, dictated and finalized at location M. Impression: Degenerative changes, as detailed above. Possible prior trapezium resection.
--- NOTE | ~2024-07-21 | XR_ITS ---
Right wrist Technique: PA, oblique, lateral, and ulnar deviation views were obtained. Clinical History: Sprain Findings: No acute fracture or dislocation is seen. There is advanced degenerative change of the firs t CMC joint. Probable prior trapezium resection.. Soft tissues are unremarkable. Impression: Degenerative change of the base of the thumb with probable prior trapezium resection. Reviewed, dictated and finalized at location . Impression: Degenerative change of the base of the thumb with probable prior trapezium rese ction.
--- OUTSIDE RECORDS SUMMARY | 2024-07-21 13:11 | XMS_ITS | Referral Summary ---
Author Organization [facility] Address [address] [place] [address] Care Team Providers Care Inspector Semiconductor Wafer Name Role Phone Ibrahima Ramos DO Primary Care Provider [phone] Referral, Self Unavailable Unavailable Spike Stevenson MD Unavailable [phone] Allergies Active Allergy Reactions Criticality Noted Date [...] (thirty) days 1st of every month Active ogjmdnje89-cgbv-S mfolate-algal 27 mg iron-1.13 mg-581.92 mg capsuleIndication s:health Take 1 capsule by mouth every morning Active loratadine (CLARITIN) 10 mg tabletIndications :Allergic Rhinitis Take 1 tablet (10 mg total) by mouth every morning Active cholecalciferol, vitamin D3, (D3-5000 ORAL)Indications: supplement Take 5,000 Units by mouth every morning Active vit C,C-Ek-ydapb-lute in-zeaxan 250-90-40-1 mg capsuleIndication s:eye health Take [...] (04/20/2022): Added automatically from request for surgery [id number] Cardiomegaly 04/19/2022 Longstanding persistent atrial fibrillation 04/02 [...] on file Legal Sex Female 7:54 AM AUTOMOBILE SALES REPRESENTATIVE Gender Identity Female 02/15/2022 10:12 AM AUTOMOBILE SALES REPRESENTATIVE Sexual Orientation Straight 02/15/2022 10 :12 AM AUTOMOBILE SALES REPRESENTATIVE Last Filed Vital Signs Vital Sign Reading Time Taken Comments Blood Pressure 139/70 03/03/2024 2:03 PM AUTOMOBILE SALES REPRESENTATIVE Pulse 56 03/03/2024 2:03 PM AUTOMOBILE SALES REPRESENTATIVE Temperature 36.3 C (97.3 F) 03/03/2024 2:03 PM AUTOMOBILE SALES REPRESENTATIVE Respiratory Rate 16 03/03/2024 2:03 PM AUTOMOBILE SALES REPRESENTATIVE Oxygen Saturation 97% 03/03/2024 2:03 PM AUTOMOBILE SALES REPRESENTATIVE Inhaled Oxygen Concentration - - Weight 87.8 kg (193 lb 9.6 oz) 03/03/2024 2:03 P M AUTOMOBILE SALES REPRESENTATIVE Height 160 cm (5' 3 ) 03/03/2024 2:03 PM AUTOMOBILE SALES REPRESENTATIVE Body Mass Index 34.29 03/03/2024 2:03 PM AUTOMOBILE SALES REPRESENTATIVE Plan of Treatment Not on file Medical Devices Implanted Type Area Extruder Operator Device Identifier Shelf Expiration Date Model / Serial / Lot Davol Inc/C R Bard [id number] Bard [id number] Monofilament Soft Lightweight Low Profile Square - [id number] Implanted:Qty: 1 on 06/05/2022 by Bayron Mayes MD at [facility] Mesh N/A: Abdomen [employer]/C R Bard [id number] 09/27/2026 [id number] / / [id number] Insurance MEDICARE [facility] FEDERAL [facility] FEDERAL MEDICARE MEDICARE [facility] Advance Directives For more information, please contact: [phone] Documents on File Type Date Recorded Patient Complaint Manager Expl anation ADVANCE DIRECTIVE 06/05/2022 7:11 AM Power of Fisher Lampara Net-Medical * Full Code (Latest Code Status on File) Date Activated Date Inactivated Comments 06/05/2022 2:22 PM 06/08/2022 3:57 PM Care Teams Inspector Semiconductor Wafer Relationship Specialty Start Date End Date Ibrahima Ramos DO PCP - General Internal Medicine 02/08/22 Referral, Self 02/20/24 Spike Stevenson MD [address] [facility] 8 DIV IM BONE MARROW TRANSPLANT, , [place] [address] Medical Oncologist/Program Support Specialist Medical Oncology 02/27/24
--- OUTSIDE RECORDS SUMMARY | 2024-07-21 13:11 | XMS_ITS | Clinical Summary ---
Author Organization [facility] Address [address] [place] [address] Care Team Providers Care Estate Conservator Name Role Phone Unavailable Primary Care Provider Unavailabl e Source Comments [facility],non-owned Affiliates and Associated Physician Practices is amultiple site organization consisting of ambulatory clinics and hospital sitesin [place], [place], [place] and [place]. This disclosure is being madepursuant to the Care Everywhere program and may not contain all information available regarding this patient. Last updated 17.[facility] Social History Tobacco Use Types Packs/Day Years Used Date Smoking Tobacco: Never Assessed Comments Unknown Sex and Gender Information Value Date Recorded Sex Assigned at Not on file Legal Sex Female 7:09 AM CDT Gender Identity Not on file [...] VACCINE ( - 2023-2 5 season) 2023 DEPRESSION SCREENING 04/02/2024 INFLUENZA VACCINE (Season Ended) 2024 Respiratory Syncytial Virus (RSV) Vaccine Pt: or [...] on patient's age to complete this topic Insurance MEDICARE [facility] SELF PAY NO INSURANCE Member Subscriber Plan / Payer (Ef fective for All Dates) Name:Nguyen Marrero Member ID:Not on file Relation to Subscriber:Not on file Name:NGUYEN MARRERO Subscriber ID:Not on file (Home) Address: [place] [address] Payer ID:Not on file Group ID:Not on file Type:Self Pay Address: [place], [place]
--- OUTSIDE RECORDS SUMMARY | 2024-07-21 13:11 | XMS_ITS | Encounter Summary ---
Author Organization [facility] Address [address] [place] [address] Phone Care Team Providers Care Director Database Name Role Phone Ibrahima Ramos DO Primary Care Provider [phone] Bayron Mayes MD Unavailable [phone] Young Mcgrath MD Unavailable Referral, Self Unavailable Unavailable Spike Stevenson MD Unavailable [phone] Encounter Details Date Type Department Care Team [...] on file Legal Sex Female 7:54 AM POWER AND RECOVERY SHIFT ENGINEER Gender Identity Female 02/15/2022 10:12 AM POWER AND RECOVERY SHIFT ENGINEER Sexual Orientation Straight 02/15/2022 10 :12 AM POWER AND RECOVERY SHIFT ENGINEER documented as of this encounter Plan of Treatment Not on file documented as of this encounter Procedures Procedure Name Priority Date/Time Associated Diagnosis Comments SCAN - LABS 01/15/2024 documented in this encounter Results * SCAN - LABS (01/15/2024) us Provider Scanning Final Result documented in this encounter Visit Diagnoses Not on filedocumented in this encounter Care Teams Director Database Relationship Specialty Start Date End Date Ibrahima Ramos DO PCP - General Internal Medicine 02/08/22 Bayron Mayes MD [address] [place] [address] Referring Physician General Surgery 06/04/23 03/04/24 Young Mcgrath MD [address] 8 DIV IM BONE MARROW TRANSPLANT, 5TH, [address] [place] [address] Consulting Physician Medical Oncology 02/20/24 4 Referral, Self 02/20/24 Spike Stevenson MD [address] 8 DIV IM BONE MARROW TRANSPLANT, 5TH, [address] [place] [address] Medical Oncologist/Planning Lead Medical Oncology 02/27/24 documented as of this encounter
--- OUTSIDE RECORDS SUMMARY | 2024-07-21 13:11 | XMS_ITS | Clinical Summary ---
Author Organization [facility] Address [address] [place] [address] Care Team Providers Care Manager Poker Name Role Phone Ibrahima Ramos DO Primary Care Provider [phone] Referral, Self Unavailable Unavailable Spike Stevenson MD Unavailable [phone] Allergies Active Allergy Reactions Criticality Noted Date [...] (thirty) days 1st of every month Active ovhdtcof34-bjqp-D mfolate-algal 27 mg iron-1.13 mg-581.92 mg capsuleIndication s:health Take 1 capsule by mouth every morning Active loratadine (CLARITIN) 10 mg tabletIndications :Allergic Rhinitis Take 1 tablet (10 mg total) by mouth every morning Active cholecalciferol, vitamin D3, (D3-5000 ORAL)Indications: supplement Take 5,000 Units by mouth every morning Active vit C,S-Rk-pknei-lute in-zeaxan 250-90-40-1 mg capsuleIndication s:eye health Take [...] (04/20/2022): Added automatically from request for surgery [id number] Cardiomegaly 04/19/2022 Longstanding persistent atrial fibrillation 04/02 [...] on file Legal Sex Female 7:54 AM BUSINESS SCHOOL DEAN Gender Identity Female 02/15/2022 10:12 AM BUSINESS SCHOOL DEAN Sexual Orientation Straight 02/15/2022 10 :12 AM BUSINESS SCHOOL DEAN Obstetrics History Comments LMP: 1990 S/p Hysterectomy Last Filed Vital Signs Vital Sign Reading Time Taken Comments Blood Pressure 139/70 03/03/2024 2:03 PM BUSINESS SCHOOL DEAN Pulse 56 03/03/2024 2:03 PM BUSINESS SCHOOL DEAN Temperature 36.3 C (97.3 F) 03/03/2024 2:03 PM BUSINESS SCHOOL DEAN Respiratory Rate 16 03/03/2024 2:03 PM BUSINESS SCHOOL DEAN Oxygen Saturation 97% 03/03/2024 2:03 PM BUSINESS SCHOOL DEAN Inhaled Oxygen Concentration - - Weight 87.8 kg (193 lb 9.6 oz) 03/03/2024 2:03 P M BUSINESS SCHOOL DEAN Height 160 cm (5' 3 ) 03/03/2024 2:03 PM BUSINESS SCHOOL DEAN Body Mass Index 34.29 03/03/2024 2:03 PM BUSINESS SCHOOL DEAN Plan of Treatment Health Maintenance Due Date [...] 08/24/2021, 06/13/2021 Medical Devices Implanted Type Area Loan Originator Device Identifier Shelf Expiration Date Model / Serial / Lot [employer]ol Inc/C R Bard [id number] Bard [id number] Monofilament Soft Lightweight Low Profile Square - [id number] Implanted:Qty: 1 on 06/05/2022 by Bayron Mayes MD at [facility] Mesh N/A: Abdomen [employer] Inc/C R Bard [id number] 09/27/2026 [id number] / / [id number] [facility] FEDERAL [facility] FEDERAL MEDICARE MEDICARE [facility] Advance Directives For more information, please contact: [phone] Documents on File Type Date Recorded Patient Lath Hand Expl anation ADVANCE DIRECTIVE 06/05/2022 7:11 AM Power of Kiln Feeder-Medical * Full Code (Latest Code Status on File) Date Activated Date Inactivated Comments 06/05/2022 2:22 PM 06/08/2022 3:57 PM Care Teams Manager Poker Relationship Specialty Start Date End Date Ibrahima Ramos DO PCP - General Internal Medicine 02/08/22 Referral, Self 02/20/24 Spike Stevenson MD [address] [facility] 8 DIV IM BONE MARROW TRANSPLANT, , [address] [place] [address] Medical Oncologist/Lease Buyer Medical Oncology 02/27/24
--- OUTSIDE RECORDS SUMMARY | 2024-07-21 13:11 | XMS_ITS | Clinical Summary ---
Author Organization [facility] Address [address] [place] [address] Care Team Providers Care Senior Ios Software Engineer Name Role Phone Unavailable Primary Care Provider [...] 01/13/2021 Insurance MEDICARE PART A AND B [facility]
--- OUTSIDE RECORDS SUMMARY | 2024-07-21 13:11 | XMS_ITS | Encounter Summary ---
Author Organization [facility] Address [address] [address] Care Team Providers Care Early Breastfeeding Care Specialist Name Role Phone Unavailable Primary Care Provider Unavailabl e Encounter Details Date Type Department Care Team (Late st Contact Info) Description 03/09/2023 Lab Requisition [facility] - DermPath Lab [address] [place] [id number] Genesis Quintero MD [address] [id number] Neoplasm of uncertain behavior of skin Social [...] Diagnosis Comments DERMATOPATHOLOGY Routine 03/09/2023 3:33 AM [facility] SET UP Neoplasm of uncertain behavior of skin documented in this encounter Results * DERMATOPATHOLOGY (03/09/2023 3:33 AM MILL SET UP) Case Report Dermatopathology Report Case: [id number] Authorizing Provider: Genesis Quintero MD Collected: 03/09/2023 03:33 AM Ordering Location: [facility] DermPath Lab Received: 03/12/2023 09:22 AM Pathologist: Eileen Loyola MD Specimens: A) - Skin, right lateral proximla upper arm B) - Skin, right suprapubic skin 12:53 PM [facility] DERMATOPATHOLOGY LABORATORY Final Diagnosis Specimen A. 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 Jar 0. 3 12:53 PM [facility] DERMATOPATHOLOGY LABORATORY Microscopic Description Specimen A. SKIN, [...] present within the dermis. 3 12:53 PM [facility] DERMATOPATHOLOGY LABORATORY Disclaimer An external and internal positive and negative controls are appropriate for the histochemical, immunohistochemical and immunofluorescence stain(s) in this case (if any), except where stated explicitly. The performance characteristics of the stain(s) cited in this report were developed and its performance characteristic determined by the Dermatopathology Laboratory at [facility], directed by Dr. Miguel Angel Cruz. These tests need not be, and therefore are not, approved by the [place] Food and Drug Administration. The tests are used for clinical purposes. Billing Codes Specimen Charges Stain Charges 57337 22234 1 1 3 12:53 PM [facility] DERMATOPATHOLOGY LABORATORY Embedded Images 3 12:53 PM [facility] DERMATOPATHOLOGY LABORATORY Pathology/Cytology TISSUE SPECIMEN FROM SKIN / Unknown 03/09/2023 3:33 AM M[facility] SET UP 03/12/2023 9:22 AM M[facility] SET UP Miscellaneous samples (specimen) TISSUE SPECIMEN FROM SKIN / Unknown 03/09/2023 3:33 AM M[facility] SET UP 03/12/2023 9:22 AM M[facility] SET UP Genesis Quintero MD LAB - PATHOLOGY/CYTOLOG Y ORDERABLES Final Result DERMATOPATHOLOGY LABORATORY [facility] - Department of Dermatology [facility] [address] [place] [address], [address] [phone] documented in this encounter Visit Diagnoses Diagnosis Neoplasm of uncertain behavior of skin documented in this encounter
--- OUTSIDE RECORDS SUMMARY | 2024-07-21 13:11 | XMS_ITS | Encounter Summary ---
Author Organization [facility] Address [address] [place] [address] Phone Care Team Providers Care Inspector Elevators Name Role Phone Ibrahima Ramos DO Primary Care Provider [phone] Bayron Mayes MD Unavailable [phone] Yonug Mcgrath MD Unavailable Referral, Self Unavailable Unavailable Spike Stevenson MD Unavailable [phone] Encounter Details Date Type Department Care Team [...] on file Legal Sex Female 7:54 AM SURGERY TEACHER Gender Identity Female 02/15/2022 10:12 AM SURGERY TEACHER Sexual Orientation Straight 02/15/2022 10 :12 AM SURGERY TEACHER documented as of this encounter Plan of Treatment Not on file documented as of this encounter Procedures Procedure Name Priority Date/Time Associated Diagnosis Comments SCAN - LABS 02/04/2024 documented in this encounter Results * SCAN - LABS (02/04/2024) us Provider Scanning Final Result documented in this encounter Visit Diagnoses Not on filedocumented in this encounter Care Teams Inspector Elevators Relationship Specialty Start Date End Date Ibrahima Ramos DO PCP - General Internal Medicine 02/08/22 Bayron Mayes MD [address] [place] [address] Referring Physician General Surgery 06/04/23 03/04/24 Young Mcgrath MD [address] [place] 8 DIV IM BONE MARROW TRANSPLANT, 5TH, [address] [address] Consulting Physician Medical Oncology 02/20/24 4 Referral, Self 02/20/24 Spike Stevenson MD [address] 8 DIV IM BONE MARROW TRANSPLANT, 5TH, [address] [address] Medical Oncologist/Animal Control Licensing Worker Medical Oncology 02/27/24 documented as of this encounter
--- OUTSIDE RECORDS SUMMARY | 2024-07-21 13:11 | XMS_ITS | Encounter Summary ---
Author Organization [facility] Address [address] [place] [address] Phone Care Team Providers Care Senior Cost Analyst Name Role Phone Ibrahima Ramos DO Primary Care Provider [phone] Bayron Mayes MD Unavailable [phone] Young Mcgrath MD Unavailable Referral, Self Unavailable Unavailable Spike Stevenson MD Unavailable [phone] Encounter Details Date Type Department Care Team [...] on file Legal Sex Female 7:54 AM CLIENT MANAGER LARGE LAW Gender Identity Female 02/15/2022 10:12 AM CLIENT MANAGER LARGE LAW Sexual Orientation Straight 02/15/2022 10 :12 AM CLIENT MANAGER LARGE LAW documented as of this encounter Plan of Treatment Not on file documented as of this encounter Procedures Procedure Name Priority Date/Time Associated Diagnosis Comments SCAN - LABS 02/06/2024 documented in this encounter Results * SCAN - LABS (02/06/2024) us Provider Scanning Final Result documented in this encounter Visit Diagnoses Not on filedocumented in this encounter Care Teams Senior Cost Analyst Relationship Specialty Start Date End Date Ibrahima Ramos DO PCP - General Internal Medicine 02/08/22 Bayron Mayes MD [address] [place] [address] Referring Physician General Surgery 06/04/23 03/04/24 Young Mcgrath MD [address] [place] 8 DIV IM BONE MARROW TRANSPLANT, 5TH, [address] [place] [address] Consulting Physician Medical Oncology 02/20/24 4 Referral, Self 02/20/24 Spike Stevenson MD [address] 8 DIV IM BONE MARROW TRANSPLANT, 5TH, [address] [address] Medical Oncologist/Oil Operator Medical Oncology 02/27/24 documented as of this encounter
--- OUTSIDE RECORDS SUMMARY | 2024-07-21 13:11 | XMS_ITS | Encounter Summary ---
Author Organization [facility] Address [address] [place] [address] Phone Care Team Providers Care Dentistry Professor Name Role Phone Ibrahima Ramos DO Primary Care Provider [phone] Bayorn Mayes MD Unavailable [phone] Young Mcgrath MD Unavailable Referral, Self Unavailable Unavailable Spike Stevenson MD Unavailable [phone] Encounter Details Date Type Department Care Team [...] on file Legal Sex Female 7:54 AM SCRAP HOIST OPERATOR Gender Identity Female 02/15/2022 10:12 AM SCRAP HOIST OPERATOR Sexual Orientation Straight 02/15/2022 10 :12 AM SCRAP HOIST OPERATOR documented as of this encounter Plan of Treatment Not on file documented as of this encounter Procedures Procedure Name Priority Date/Time Associated Diagnosis Comments SCAN - LABS 01/07/2024 documented in this encounter Results * SCAN - LABS (01/07/2024) us Provider Scanning Final Result documented in this encounter Visit Diagnoses Not on filedocumented in this encounter Care Teams Dentistry Professor Relationship Specialty Start Date End Date Ibrahima Ramos DO PCP - General Internal Medicine 02/08/22 Bayron Mayes MD [address] [place] [address] Referring Physician General Surgery 06/04/23 03/04/24 Young Mcgrath MD [address] 8 DIV IM BONE MARROW TRANSPLANT, 5TH, [address] [address] Consulting Physician Medical Oncology 02/20/24 4 Referral, Self 02/20/24 Spike Stevenson MD [address] 8 DIV IM BONE MARROW TRANSPLANT, 5TH, [address] [address] Medical Oncologist/English Division Chair Medical Oncology 02/27/24 documented as of this encounter
--- OUTSIDE RECORDS SUMMARY | 2024-07-21 13:11 | XMS_ITS | Encounter Summary ---
Author Organization [facility] Address [address] [place] [address] Care Team Providers Care Boot Maker Name Role Phone Unavailable Primary Care Provider Unavailabl e Prior Encounters Date Type Department Care Team Description 04/21/[address] [facility] [address] [facility], [address] [address] <No scans attached> 04/21/2019 Converted CPS Chart Documents [facility] [address] [facility], [address] [address] <No scans attached> 04/21/[address] [facility] [address] [facility], [address] [place] [address] <No scans attached> 04/21/2019 Converted 13x Documents [facility] [address] [facility], [facility] [address] [place] [address] <No scans attached> Plan of [...] 31 ENDODONTIC THERAPY, MOLAR TOOTH (EXCLUDING FINAL SCIENTOLOGY) Routine 08/07/2018 12:00 AM PDT 3 ENDODONTIC THERAPY, MOLAR TOOTH (EXCLUDING FINAL SCIENTOLOGY) Routine 08/07/2018 12:00 AM PDT 3 SANITARY LANDFILL OPERATOR CONSULT Routine 08/07/2018 12:00 AM PDT 4 [...] 19 ENDODONTIC THERAPY, MOLAR TOOTH (EXCLUDING FINAL SCIENTOLOGY) Routine 05/04/2008 12:00 AM PST 4 ENDODONTIC THERAPY, PREMOLAR TOOTH (EXCLUDING FINAL SCIENTOLOGY) Routine 05/04/2008 12:00 AM PST 5 MODL [...]
--- OUTSIDE RECORDS SUMMARY | 2024-07-21 13:11 | XMS_ITS | Clinical Summary ---
Author Organization [facility] Address [address] [place] [address] Care Team Providers Care Operator Maintainer Name Role Phone Unavailable Primary Care Provider [...]
== END 2024-07-21 11:19 | disposition home or self-care (01) ==
PROVIDERS: PCP Nurse Practitioner; Visit Provider Plastic Surgery
DX: M18.11 Unilateral primary osteoarthritis of first carpometacarpal joint, right hand (principal)
CPT/HCPCS: 73110; 73130

== ENCOUNTER 2024-08-01 10:00 | Outpatient (RCR) | payer MEDICARE, BC, SELFPAY ==
--- NOTE | 2024-07-04 11:22 | OPREHPOC ---
Outpatient Therapy Plan of Care This is a Multidisciplinary Plan of Care that may contain components documented by all disciplines (PT, OT, and ST.) PT Problem 1 PT Problem #1 Knowledge Deficit PT Goal 1 Goal / Goal Update [place] with HEP Target Visit 4 PT Goal 2 Goal / Goal Update Report no pain greater than 2/10 for 2 consecutive weeks Target Visit 8 PT Problem 2 PT Problem #2 Impaired Range of Motion PT Goal 1 Goal / Goal Update 1. Improve ann cervical rotation to 50 degrees to improve active field of view and cervical positioning 2. Improve cervical extension to 30 degrees from proper postural starting position Target Visit 8 PT Goal 2 Goal / Goal Update 1. Require cueing for proper resting posture less than 25% of the time during exercise activity Target Visit 8 PT Problem 3 PT Problem #3 Impaired Functional Mobility PT Goal 1 Goal / Goal Update Demonstrate 30% improvement in Neck Index Target Visit 8
--- NOTE | 2024-07-04 11:22 | PTOPEVAL1 ---
Assessment and note entered by Deangelo Barbosa, PT Evaluation Information Assessment Status Evaluation ICD-10 Condition Codes (PT) Cervicalgia M54.2,Pain in Thoracic Spine M54.6 Onset Chronic Subjective Information Reports that she had imaging and has been diagnosed with severe scoliosis. She has had pain for a long time but worse in the past 6 months. Feels that at time is it is hard to breathe because it feels her rib cage does not want to move. Had history of bronchitis about a year ago. She sleeps with a CPAP but still has a very hard time at night getting comfortable. She is up about every 2 hours. She is right handed. She is positive for A-fib and takes Eloquis. Reports that she has headaches all the time. She has history of migraines and takes regular medication once a month. Gets a lot of pain and stiffness into the back of the head. Reported Pain Level Pain Score 9: Self Report Assessment PT Clinical Summary Patient presents with signs and symptoms consistent with cervical stenosis and muscle strain with postural deficits. She will benefit from skilled therapy to address these deficits for improved functional cervical mobility, postural strength and pain relief. Plan of Care Interventions Electrical Stimulation,Manual Therapy,Neuro Re- education PT Services Indicated Yes Treatment Frequency and 2x/week for 8 visits Duration These treatments will address the objective and functional deficits as defined above. The patient will be advanced safely and appropriately in order for the patient to progress towards his/her prior level of function. Additional exercises will be introduced and as well as a comprehensive home exercise program upon discharge, if needed, ?to ensure carryover of functional gains achieved in the clinic. This treatment plan has been reviewed and agreement upon by the patient.
--- NOTE | 2024-07-25 10:05 | PCPTNOTE ---
Patient canceled due to family emergency.
--- NOTE | 2024-08-01 11:08 | OPREHPOC ---
Outpatient Therapy Plan of Care This is a Multidisciplinary Plan of Care that may contain components documented by all disciplines (PT, OT, and ST.) PT Problem 1 PT Problem #1 Knowledge Deficit PT Goal 1 Goal / Goal Update Alexander with HEP Target Visit 4 Progress Met PT Goal 2 Goal / Goal Update Report no pain greater than 2/10 for 2 consecutive weeks Target Visit 8 Progress Partially Met PT Problem 2 PT Problem #2 Impaired Range of Motion PT Goal 1 Goal / Goal Update 1. Improve ann cervical rotation to 50 degrees to improve active field of view and cervical positioning 2. Improve cervical extension to 30 degrees from proper postural starting position Target Visit 8 Progress Met PT Goal 2 Goal / Goal Update 1. Require cueing for proper resting posture less than 25% of the time during exercise activity Target Visit 8 Progress Met PT Problem 3 PT Problem #3 Impaired Functional Mobility PT Goal 1 Goal / Goal Update Demonstrate 30% improvement in Neck Index Target Visit 8 Progress Partially Met
--- NOTE | 2024-08-01 11:08 | PTOPDC ---
Assessment and note entered by Deangelo Barbosa, PT Evaluation Information Assessment Status Discharge ICD-10 Condition Codes (PT) Cervicalgia M54.2,Pain in Thoracic Spine M54.6 Onset Chronic Subjective Information Reports that overall, she is feeling better. Feels that the stretches have really helped her and she has made progress. She is resting better. Migraines have been less frequent. She appreciates that progress where we are at. She feels if she does too much she goes backwards so she has been very functional with her current plan of care. Has been implementing morning stretching routine prior to getting out of bed. Reported Pain Level Pain Score 5: Self Report Assessment PT Clinical Summary Patient has made progress with cervical ROM and shoulder strength. Patient is satisfied with current HEP and plans to continue independently. Suitable for discharge to [facility] at this time. Plan of Care PT Services Indicated Yes
== END 2024-08-01 13:00 | disposition home or self-care (01) ==
LOC: ANHGOSHPT 10:00
PROVIDERS: PCP Nurse Practitioner; Visit Provider Nurse Practitioner
DX: M54.2 Cervicalgia (principal); M54.6 Pain in thoracic spine
CPT/HCPCS: 97110; 97116; 97140; 97161

== ENCOUNTER 2024-08-11 10:54 | Outpatient (CLI) | payer MEDICARE, BC, SELFPAY ==
--- NOTE | ~2024-08-11 | MR_ITS ---
EXAMINATION: MR wrist RT wo/w con DATE: 08/11/2024 11:57 INDICATION: Radial sided right wrist pain and swelling. TECHNIQUE: Magnetic resonance imaging (MRI) of the right wrist was performed without intravenous cont rast. Sequences performed include axial PD-weighted FSE and PD-weighted FS FSE, coronal PD-weighted F S FSE and T1-weighted SE, sagittal PD-weighted FS FSE and PD-weighted FSE and postcontrast axial, sag ittal and coronal T1-weighted FS FSE. COMPARISON: Right hand and wrist radiographs dated 07/21/2024 FINDINGS: Bones/other: Postoperative change at the radial aspect carpus with resection of the trapezium. Arthrodesis at the radial aspect of the carpus extending between the scaphoid, the trapezoid, capitate and base of the s econd and third metacarpals. Likely suture anchor tracks and severe osteoarthritic changes at the bas e of the first metacarpal. Severe osteoarthritis with mild subarticular edema-like and cystlike zambrano es at the radial scaphoid articulation. Additional moderate osteoarthritis at the midcarpal joint and mild osteoarthritis at the distal radioulnar joint and remaining joints of the carpus. Normal marrow signal with loss of the internal trabecular pattern at the distal radius likely representing an old healed bone graft harvest site. Magnetic field artifact at the head of the first metacarpal correspon ding to a suture anchor in prior radiographs. There is enhancing synovitis at the radial and radial d orsal aspect of the carpus contiguous with the wrist joint and the trapezial resection bed. Intrinsic ligaments: There is a tear at the radial side of the scapholunate ligament. There is secondary dorsal rotatory s ubluxation of the lunate with increased lunocapitate angle consistent with dorsal intercalated segmen t instability (DISI). The lunotriquetral ligament is normal. Triangular fibrocartilage complex (TFCC): There is a partial tear at the ulnar side of the central fiber cartilaginous disc of the triangular f ibrocartilage complex. The radial, foveal and ulnar styloid attachments of the triangular fibrocartil age complex along with the dorsal and volar radioulnar ligaments are all intact. The ulnar collateral ligament, ulnotriquetral ligament and meniscal homologue are normal. The extensor carpi ulnaris tend on sheath is normal. Extensor wrist: Extensor tendons of the wrist are normal. No tenosynovitis. Flexor wrist: The flexor tendons of the wrist are normal. No abnormality in the carpal tunnel with normal median n erve. Guyon's canal: Guyon's canal including the ulnar nerve and artery are normal. IMPRESSION: 1. Postoperative change of prior trapezial resection, first carpal metacarpal suspension arthroplasty and arthrodesis between the scaphoid, capitate, trapezoid and base of the segment third metacarpals. 2. Tear of the scapholunate ligament with secondary dorsal intercalated segment instability (DISI) wi th increased lunocapitate angle. 3. 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 4. Small partial tear at the ulnar side of the fibrocartilaginous disc of the triangular fibrocartila ge complex. 5. Enhancing synovitis at the radial and radial/dorsal aspect of the carpus which appears contiguous with the wrist joint and the trapezial resection bed. No ganglion cyst. Reviewed, dictated and finalized at location A. IMPRESSION: 1. Postoperative change of prior trapezial resection, first carpal metacarpal s uspension arthroplasty and arthrodesis between the scaphoid, capitate, trapezoi d and base of the segment third metacarpals. 2. Tear of the scapholunate ligament with secondary dorsal intercalated segment instability (DISI) with increased lunocapitate angle. 3. Polyarticular osteoarthritis, severe at the radial scaphoid articulation whi ch could be due to secondary scapholunate advanced collapse (SLAC) wrist. 4. Small partial tear at the ulnar side of the fibrocartilaginous disc of the t riangular fibrocartilage complex. 5. Enhancing synovitis at the radial and radial/dorsal aspect of the carpus whi ch appears contiguous with the wrist joint and the trapezial resection bed. No ganglion cyst.
--- OUTSIDE RECORDS SUMMARY | 2024-08-11 11:18 | XMS_ITS | Encounter Summary ---
Author Organization [facility] Address [address] [place] [address] Phone Care Team Providers Care Stencil Typist Name Role Phone Ibrahima Ramos DO Primary Care Provider [phone] Bayron Mayes MD Unavailable [phone] Young Mcgrath MD Unavailable Referral, Self Unavailable Unavailable Spike Stevenson MD Unavailable [phone] Encounter Details Date Type Department Care Team [...] on file Legal Sex Female 7:54 AM WALL INSULATION SPRAYER Gender Identity Female 02/15/2022 10:12 AM WALL INSULATION SPRAYER Sexual Orientation Straight 02/15/2022 10 :12 AM WALL INSULATION SPRAYER documented as of this encounter Plan of Treatment Not on file documented as of this encounter Procedures Procedure Name Priority Date/Time Associated Diagnosis Comments SCAN - LABS 01/07/2024 documented in this encounter Results * SCAN - LABS (01/07/2024) us Provider Scanning Final Result documented in this encounter Visit Diagnoses Not on filedocumented in this encounter Care Teams Stencil Typist Relationship Specialty Start Date End Date Ibrahima Ramos DO PCP - General Internal Medicine 02/08/22 Bayron Mayes MD [address] [place] [address] Referring Physician General Surgery 06/04/23 03/04/24 Young Mcgrath MD [address] [place] 8 DIV IM BONE MARROW TRANSPLANT, 5TH, [address] [place] [address] Consulting Physician Medical Oncology 02/20/24 4 Referral, Self 02/20/24 Spike Stevenson MD [address] 8 DIV IM BONE MARROW TRANSPLANT, 5TH, [address] [place] [address] Medical Oncologist/Bus Mechanic Medical Oncology 02/27/24 documented as of this encounter
--- OUTSIDE RECORDS SUMMARY | 2024-08-11 11:18 | XMS_ITS | Encounter Summary ---
Author Organization [facility] Address [address] [place] [address] Phone Care Team Providers Care Manager Outpatient Name Role Phone Ibrahima Ramos DO Primary Care Provider [phone] Bayron Mayes MD Unavailable [phone] Young Mcgrath MD Unavailable Referral, Self Unavailable Unavailable Spike Stevenson MD Unavailable [phone] Encounter Details Date Type Department Care Team [...] on file Legal Sex Female 7:54 AM HOSE HANDLER Gender Identity Female 02/15/2022 10:12 AM HOSE HANDLER Sexual Orientation Straight 02/15/2022 10 :12 AM HOSE HANDLER documented as of this encounter Plan of Treatment Not on file documented as of this encounter Procedures Procedure Name Priority Date/Time Associated Diagnosis Comments SCAN - LABS 01/15/2024 documented in this encounter Results * SCAN - LABS (01/15/2024) us Provider Scanning Final Result documented in this encounter Visit Diagnoses Not on filedocumented in this encounter Care Teams Manager Outpatient Relationship Specialty Start Date End Date Ibrahima Ramos DO PCP - General Internal Medicine 02/08/22 Bayron Mayes MD [address] [place] [address] Referring Physician General Surgery 06/04/23 03/04/24 Young Mcgrath MD [address] 8 DIV IM BONE MARROW TRANSPLANT, 5TH, [address] [place] [address] Consulting Physician Medical Oncology 02/20/24 4 Referral, Self 02/20/24 Spike Stevenson MD [address] 8 DIV IM BONE MARROW TRANSPLANT, 5TH, [address] [place] [address] Medical Oncologist/Drier Feeder Medical Oncology 02/27/24 documented as of this encounter
--- OUTSIDE RECORDS SUMMARY | 2024-08-11 11:18 | XMS_ITS | Referral Summary ---
Author Organization [facility] Address [address] [place] [address] Care Team Providers Care Supervisor Liquefaction Name Role Phone Ibrahima Ramos DO Primary Care Provider [phone] Referral, Self Unavailable Unavailable Spike Stevenson MD Unavailable [phone] Allergies Active Allergy Reactions Criticality Noted Date [...] (thirty) days 1st of every month Active wawtskjq23-waqh-Y mfolate-algal 27 mg iron-1.13 mg-581.92 mg capsuleIndication s:health Take 1 capsule by mouth every morning Active loratadine (CLARITIN) 10 mg tabletIndications :Allergic Rhinitis Take 1 tablet (10 mg total) by mouth every morning Active cholecalciferol, vitamin D3, (D3-5000 ORAL)Indications: supplement Take 5,000 Units by mouth every morning Active vit C,L-Wg-wkvzl-lute in-zeaxan 250-90-40-1 mg capsuleIndication s:eye health Take [...] (04/20/2022): Added automatically from request for surgery [id number] Cardiomegaly 04/19/2022 Longstanding persistent atrial fibrillation 04/02 [...] on file Legal Sex Female 7:54 AM FASHION ILLUSTRATOR Gender Identity Female 02/15/2022 10:12 AM FASHION ILLUSTRATOR Sexual Orientation Straight 02/15/2022 10 :12 AM FASHION ILLUSTRATOR Last Filed Vital Signs Vital Sign Reading Time Taken Comments Blood Pressure 139/70 03/03/2024 2:03 PM FASHION ILLUSTRATOR Pulse 56 03/03/2024 2:03 PM FASHION ILLUSTRATOR Temperature 36.3 C (97.3 F) 03/03/2024 2:03 PM FASHION ILLUSTRATOR Respiratory Rate 16 03/03/2024 2:03 PM FASHION ILLUSTRATOR Oxygen Saturation 97% 03/03/2024 2:03 PM FASHION ILLUSTRATOR Inhaled Oxygen Concentration - - Weight 87.8 kg (193 lb 9.6 oz) 03/03/2024 2:03 P M FASHION ILLUSTRATOR Height 160 cm (5' 3 ) 03/03/2024 2:03 PM FASHION ILLUSTRATOR Body Mass Index 34.29 03/03/2024 2:03 PM FASHION ILLUSTRATOR Plan of Treatment Not on file Medical Devices Implanted Type Area Checker And Packer Device Identifier Shelf Expiration Date Model / Serial / Lot [employer]/C R Bard [id number] Monofilament Soft Lightweight Low Profile Square - [id number] Implanted:Qty: 1 on 06/05/2022 by Bayron Mayes MD at [facility] Mesh N/A: Abdomen [employer] Bard [id number] 09/27/2026 [id number] / / [id number] Insurance [facility]ARE [facility] FEDERAL MEDICARE MEDICARE [facility] Advance Directives For more information, please contact: [phone] Documents on File Type Date Recorded Patient Deputy Clerk Of Superior Court Expl anation ADVANCE DIRECTIVE 06/05/2022 7:11 AM Power of Branch Operations Coordinator-Medical * Full Code (Latest Code Status on File) Date Activated Date Inactivated Comments 06/05/2022 2:22 PM 06/08/2022 3:57 PM Care Teams Supervisor Liquefaction Relationship Specialty Start Date End Date Ibrahima Ramos DO PCP - General Internal Medicine 02/08/22 Referral, Self 02/20/24 Spike Stevenson MD [address] [facility] 8 DIV IM BONE MARROW TRANSPLANT, , [place] [address] Medical Oncologist/Cylinder Inspector And Tester Medical Oncology 02/27/24
--- OUTSIDE RECORDS SUMMARY | 2024-08-11 11:18 | XMS_ITS | Encounter Summary ---
Author Organization [facility] Address [address] [place] [address] Care Team Providers Care Prosthetic Aide Name Role Phone Unavailable Primary Care Provider Unavailabl e Encounter Details Date Type Department Care Team (Late st Contact Info) Description 03/09/2023 Lab Requisition [facility] - DermPath Lab [address] [facility] [address] [place] [id number] Genesis Quintero MD [address] [facility] [address] [id number] Neoplasm of uncertain behavior of skin Social [...] Diagnosis Comments DERMATOPATHOLOGY Routine 03/09/2023 3:33 AM UTILITY WORKER [place] Neoplasm of uncertain behavior of skin documented in this encounter Results * DERMATOPATHOLOGY (03/09/2023 3:33 AM UTILITY WORKER [place]) Case Report Dermatopathology Report Case: [id number] Authorizing Provider: Genesis Quintero MD Collected: 03/09/2023 03:33 AM Ordering Location: [facility] Received: 03/12/2023 09:22 AM Pathologist: Eileen Loyola MD Specimens: A) - Skin, right lateral proximla upper arm B) - Skin, right suprapubic skin 12:53 PM UTILITY WORK[facility] [place]AT[facility] Final Diagnosis Specimen A. 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 Jar 0. 3 12:53 PM [facility] DERMATOPATHOLOGY [facility]ORATORY Microscopic Description Specimen A. SKIN, [...] present within the dermis. 3 12:53 PM [facility] DERMATOPATHOLOGY LABORATORY Disclaimer An external and internal positive and negative controls are appropriate for the histochemical, immunohistochemical and immunofluorescence stain(s) in this case (if any), except where stated explicitly. The performance characteristics of the stain(s) cited in this report were developed and its performance characteristic determined by the Dermatopathology Laboratory at [facility], directed by Dr. Miguel Angel Cruz. These tests need not be, and therefore are not, approved by the [place] Food and Drug Administration. The tests are used for clinical purposes. Billing Codes Specimen Charges Stain Charges 35699 91309 1 1 3 12:53 PM [facility] Embedded Images 3 12:53 PM [facility] [place] [place] Pathology/Cytology TISSUE SPECIMEN FROM SKIN / Unknown 03/09/2023 3:33 AM UTILITY WORKER [place] 03/12/2023 9:22 AM UTILITY WORKER [place] Miscellaneous samples (specimen) TISSUE SPECIMEN FROM SKIN / Unknown 03/09/2023 3:33 AM UTILITY WORKER [place] 03/12/2023 9:22 AM UTILITY WORKER [place] Genesis Quintero MD LAB - PATHOLOGY/CYTOLOG Y ORDERABLES Final Result DERMATOPATHOLOGY LABORATORY [facility] - Department of Dermatology [facility] Specialized Medicine [address] [place] [address], [address] [phone] documented in this encounter Visit Diagnoses Diagnosis Neoplasm of uncertain behavior of skin documented in this encounter
--- OUTSIDE RECORDS SUMMARY | 2024-08-11 11:18 | XMS_ITS | Clinical Summary ---
Author Organization [facility] Address [address] [place] [address] Care Team Providers Care Folder Machine Operator Name Role Phone Unavailable Primary Care Provider Unavailabl e Source Comments [facility],non-owned Affiliates and Associated Physician Practices is amultiple site organization consisting of ambulatory clinics and hospital sitesin [place], [place], [place] and [place]. This disclosure is being madepursuant to the Care Everywhere program and may not contain all information available regarding this patient. Last updated 17.[facility] Social History Tobacco Use Types Packs/Day [...] age to complete this topic Insurance MEDICARE [facility] SELF PAY NO INSURANCE Member Subscriber Plan / Payer (Ef fective for All Dates) Name:Nguyen Marrero Member ID:Not on file Relation to Subscriber:Not on file Name:NGUYEN MARRERO Subscriber ID:Not on file (Home) Address: [place] [address] Payer ID:Not on file Group ID:Not on file Type:Self Pay Address: [place], [place]
--- OUTSIDE RECORDS SUMMARY | 2024-08-11 11:18 | XMS_ITS | Clinical Summary ---
Author Organization [facility] Address [address] [place] [address] Care Team Providers Care International Organizer Name Role Phone Unavailable Primary Care Provider [...]
--- OUTSIDE RECORDS SUMMARY | 2024-08-11 11:18 | XMS_ITS | Encounter Summary ---
Author Organization [facility] Address [address] [place] [address] Phone Care Team Providers Care Stem Roller Or Crusher Operator Name Role Phone Ibrahima Ramos DO Primary Care Provider [phone] Bayron Mayes MD Unavailable [phone] Young Mcgrath MD Unavailable Referral, Self Unavailable Unavailable Spike Stevenson MD Unavailable [phone] Encounter Details Date Type Department Care Team [...] on file Legal Sex Female 7:54 AM MANAGER MBA Gender Identity Female 02/15/2022 10:12 AM MANAGER MBA Sexual Orientation Straight 02/15/2022 10 :12 AM MANAGER MBA documented as of this encounter Plan of Treatment Not on file documented as of this encounter Procedures Procedure Name Priority Date/Time Associated Diagnosis Comments SCAN - LABS 02/06/2024 documented in this encounter Results * SCAN - LABS (02/06/2024) us Provider Scanning Final Result documented in this encounter Visit Diagnoses Not on filedocumented in this encounter Care Teams Stem Roller Or Crusher Operator Relationship Specialty Start Date End Date Ibrahima Ramos DO PCP - General Internal Medicine 02/08/22 Bayron Mayes MD [address] [place] [address] Referring Physician General Surgery 06/04/23 03/04/24 Yuong Mcgrath MD [address] 8 DIV IM BONE MARROW TRANSPLANT, 5TH, [address] [place] [address] Consulting Physician Medical Oncology 02/20/24 4 Referral, Self 02/20/24 Spike Stevenson MD [address] [address] DIV IM BONE MARROW TRANSPLANT, 5TH, [address] [place] [address] Medical Oncologist/Non Licensed Nuclear Equipment Operator Medical Oncology 02/27/24 documented as of this encounter
--- OUTSIDE RECORDS SUMMARY | 2024-08-11 11:18 | XMS_ITS | Encounter Summary ---
Author Organization [facility] Address [address] [place] [address] Care Team Providers Care Bevel Mill Operator Name Role Phone Unavailable Primary Care Provider Unavailabl e Prior Encounters Date Type Department Care Team Description 04/21/2019 Converted CPS Chart Documents [facility] [address] [facility], [address] [address] <No scans attached> 04/21/2019 Converted CPS Chart Documents [facility] [address] [facility], [facility] [address] [place] [address] <No scans attached> 04/21/2019 Converted 13x Documents [facility] [address] [facility], [address] [place] [address] <No scans attached> 04/21/2019 Converted 13x Documents [facility] [address] [facility], [facility] [address] [place] [address] <No scans attached> Plan of [...] 31 ENDODONTIC THERAPY, MOLAR TOOTH (EXCLUDING FINAL SAMARITAN) Routine 08/07/2018 12:00 AM PDT 3 ENDODONTIC THERAPY, MOLAR TOOTH (EXCLUDING FINAL SAMARITAN) Routine 08/07/2018 12:00 AM PDT 3 EDUCATION ADMINISTRATIVE ASSISTANT CONSULT Routine 08/07/2018 12:00 AM PDT 4 [...] 19 ENDODONTIC THERAPY, MOLAR TOOTH (EXCLUDING FINAL SAMARITAN) Routine 05/04/2008 12:00 AM PST 4 ENDODONTIC THERAPY, PREMOLAR TOOTH (EXCLUDING FINAL SAMARITAN) Routine 05/04/2008 12:00 AM PST 5 MODL [...] HOURS) - NO OTHER SERVICES PERFORMED Routine [id number]|2024-08-11 11:18:00|2024-08-11 11:18:00|XMS_ITS|BKG DAEMON|External Medical Summaries|[id number]|" Encounter Summary Created on: August 11, 2024 Janes Kari Bhavya : 1955 Sex: Female Author Organization [facility] Address [address] [place] [address] Phone Care Team Providers Care Bevel Mill Operator Name Role Phone Ibrahima Ramos DO Primary Care Provider [phone] Bayron Mayes MD Unavailable [phone] Young Mcgrath MD Unavailable Referral, Self Unavailable Unavailable Spike Stevenson MD Unavailable [phone] Encounter Details Date Type Department Care Team (Latest Contact Info) Description 02/04/2024 Orders Only [facility] Scanning, Provider Social History Tobacco Use [...] on file Legal Sex Female 7:54 AM RUBBER COMPOUNDER FORMULATOR Gender Identity Female 02/15/2022 10:12 AM RUBBER COMPOUNDER FORMULATOR Sexual Orientation Straight 02/15/2022 10 :12 AM RUBBER COMPOUNDER FORMULATOR documented as of this encounter Plan of Treatment Not on file documented as of this encounter Procedures Procedure Name Priority Date/Time Associated Diagnosis Comments SCAN - LABS 02/04/2024 documented in this encounter Results * SCAN - LABS (02/04/2024) us Provider Scanning Final Result documented in this encounter Visit Diagnoses Not on filedocumented in this encounter Care Teams Bevel Mill Operator Relationship Specialty Start Date End Date Ibrahima Ramos, DO PCP - General Internal Medicine 02/08/22 Bayron Mayes MD [address] [place] [address] Referring Physician General Surgery 06/04/23 03/04/24 Young Mcgrath MD [address] [place] 8 DIV IM BONE MARROW TRANSPLANT, 5TH, [address]TH [place], [place] [id number] Consulting Physician Medical Oncology 02/20/24 4 Referral, Self 02/20/24 Spike Stevenson MD [address] [place] 8 DIV IM BONE MARROW TRANSPLANT, 5TH, [address]TH [place], [place] [id number] Medical Oncologist/Peoplesoft Developer Medical Oncology 02/27/24 documented as of this encounter "
--- OUTSIDE RECORDS SUMMARY | 2024-08-11 11:18 | XMS_ITS | Clinical Summary ---
Author Organization [facility] Address [address] [place] [address] Care Team Providers Care Customer Advisor Specialist Name Role Phone Unavailable Primary Care [...] 01/13/2021 Insurance MEDICARE PART A AND B [facility]
--- OUTSIDE RECORDS SUMMARY | 2024-08-11 11:18 | XMS_ITS | Clinical Summary ---
Author Organization [facility] Address [address] [place] [address] Care Team Providers Care Line Supply Name Role Phone Ibrahima Ramos DO Primary Care Provider [phone] Referral, Self Unavailable Unavailable Spike Stevenson MD Unavailable [phone] Allergies Active Allergy Reactions Criticality Noted Date [...] (thirty) days 1st of every month Active [id number] mfolate-algal 27 mg iron-1.13 mg-581.92 mg capsuleIndication s:health Take 1 capsule by mouth every morning Active loratadine (CLARITIN) 10 mg tabletIndications :Allergic Rhinitis Take 1 tablet (10 mg total) by mouth every morning Active cholecalciferol, vitamin D3, (D3-5000 ORAL)Indications: supplement Take 5,000 Units by mouth every morning Active vit C,A-Ug-isogz-lute in-zeaxan 250-90-40-1 mg capsuleIndication s:eye health Take [...] (04/20/2022): Added automatically from request for surgery [id number] Cardiomegaly 04/19/2022 Longstanding persistent atrial fibrillation 04/02 [...] on file Legal Sex Female 7:54 AM HUMIDIFIER ATTENDANT Gender Identity Female 02/15/2022 10:12 AM HUMIDIFIER ATTENDANT Sexual Orientation Straight 02/15/2022 10 :12 AM HUMIDIFIER ATTENDANT Obstetrics History Comments LMP: 1990 S/p Hysterectomy Last Filed Vital Signs Vital Sign Reading Time Taken Comments Blood Pressure 139/70 03/03/2024 2:03 PM HUMIDIFIER ATTENDANT Pulse 56 03/03/2024 2:03 PM HUMIDIFIER ATTENDANT Temperature 36.3 C (97.3 F) 03/03/2024 2:03 PM HUMIDIFIER ATTENDANT Respiratory Rate 16 03/03/2024 2:03 PM HUMIDIFIER ATTENDANT Oxygen Saturation 97% 03/03/2024 2:03 PM HUMIDIFIER ATTENDANT Inhaled Oxygen Concentration - - Weight 87.8 kg (193 lb 9.6 oz) 03/03/2024 2:03 P M HUMIDIFIER ATTENDANT Height 160 cm (5' 3 ) 03/03/2024 2:03 PM HUMIDIFIER ATTENDANT Body Mass Index 34.29 03/03/2024 2:03 PM HUMIDIFIER ATTENDANT Plan of Treatment Health Maintenance Due Date Last Done Comments Breast Cancer Screening-Mammogram 1955 Colon Cancer Screening-Colonoscopy 1955 Depression Screening 1955 Hepatitis C Screening 1955 Osteoporosis Screening-Bone Density Scan 1955 DTaP/Tdap/Td Vaccine (1 - Tdap) 01/23/1967 Hepatitis B Screening 01/23/1974 Well Visit 65+ 01/23/2021 Covid-19 Vaccine (3 - Moderna risk series) 01/05/2022 12/08/2021, 06/30/2021 Fall Risk Assessment 06/09/2023 06/08/2022 Influenza Vaccine (Season Ended) 2024 12/09/19 22, 01/13/2021 Pneumococcal vaccine 65+ Completed 06/13/2021 Zoster Vaccine Completed 08/24/2021, 06/13/2021 Medical Devices Implanted Type Area Vocational Horticulture Instructor Device Identifier Shelf Expiration Date Model / Serial / Lot [employer]/C R Bard [id number] Monofilament Soft Lightweight Low Profile Square - [id number] Implanted:Qty: 1 on 06/05/2022 by Bayron Mayes MD at [facility] Mesh N/A: Abdomen [employer]/C R Bard [id number] 09/27/2026 [id number] / / [id number] Insurance MEDICARE [facility] FEDERAL [facility] FEDERAL MEDICARE MEDICARE [facility] Advance Directives For more information, please contact: [phone] Documents on File Type Date Recorded Patient Anatomical Embalmer Expl anation ADVANCE DIRECTIVE 06/05/2022 7:11 AM Power of Swatch Cutter-Medical * Full Code (Latest Code Status on File) Date Activated Date Inactivated Comments 06/05/2022 2:22 PM 06/08/2022 3:57 PM Care Teams Line Supply Relationship Specialty Start Date End Date Ibrahima Ramos DO PCP - General Internal Medicine 02/08/22 Referral, Self 02/20/24 Spike Stevenson MD [address] [facility] 8 DIV IM BONE MARROW TRANSPLANT, , [address] [place] [address] Medical Oncologist/Secondary Education Professor Medical Oncology 02/27/24
== END 2024-08-11 10:55 | disposition home or self-care (01) ==
PROVIDERS: PCP Nurse Practitioner; Visit Provider Plastic Surgery
DX: S63.392A Traumatic rupture of other ligament of left wrist, initial encounter (principal); M25.332 Other instability, left wrist; M18.11 Unilateral primary osteoarthritis of first carpometacarpal joint, right hand; Z96.631 Presence of right artificial wrist joint; Z98.1 Arthrodesis status
CPT/HCPCS: 73223; A9579

== ENCOUNTER 2024-08-29 10:57 | Outpatient (CLI) | payer MEDICARE, BC, SELFPAY ==
--- NOTE | ~2024-08-29 | MM_ITS ---
EXAMINATION: MM screening [facility] HISTORY: Screening TECHNIQUE: Craniocaudal and mediolateral oblique 3-D tomosynthesis images were obtained and synthetic 2-D images were generated. CAD analysis was submitted and interpreted. COMPARISON: Comparison to multiple prior studies sequentially, with oldest reviewed study dated 07/16. BREAST PARENCHYMAL COMPOSITION: Not dense: There are scattered areas of fibroglandular density. FINDINGS: Stable low-density mass upper outer quadrant of the left breast, consistent with benign mas s. There is no evidence of suspicious mass, calcification, or architectural distortion to suggest mal ignancy in either breast. There has been no suspicious interval change. IMPRESSION: 1. No mammographic evidence of malignancy. 2. Recommend routine screening mammography in one year. BI-RADS Category 2: Benign finding(s). Reviewed, dictated and finalized at location A.
== END 2024-08-29 10:58 | disposition home or self-care (01) ==
PROVIDERS: PCP Internal Medicine; Visit Provider Internal Medicine
DX: Z12.31 Encounter for screening mammogram for malignant neoplasm of breast (principal)
CPT/HCPCS: 77063; 77067

== ENCOUNTER 2024-10-07 13:00 | Outpatient (RCR) | payer MEDICARE, BC, SELFPAY ==
--- NOTE | 2024-08-26 09:00 | OTOPEVAL1 ---
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 She reports return of her thumb pain at the base of the thumb. She also has a history of a right wrist fusion, carpal tunnel release, and cyst excisions . She is retired. She likes to humberto. Reported Pain Level Pain Score 3/10 (R) thumb at rest Assessment OT Clinical Summary Patient referred to OT with dx of OA of her 1st CMC. She is many years s/p soft tissue arthroplasty of the thumb and reports chronic pain with use. Patient's thumb presents in a collapsed position - thumb adduction, CMC supination, and MCP hyperextension. 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 Today a custom, hand based thumb spica was fabricated to position the thumb in slight abduction, neutral CMC, and MCP flexion. She demonstrates the ability to write and complete fine motor tasks with the splint donned. Continued skilled OT indicated for HEP progression, instruction and feedback on mechanics during functional hand use, use of modalities, manual therapy, and therapeutic exercises and activities to improve functional use of her right, dominant hand. Plan of Care Interventions Therapeutic Exercise,Manual Therapy,Therapeutic Activities,Hot Pack/Cold Pack,Self-Care/Home Management,Check Out for Orthotic/Prosthetic, Ultrasound,Paraffin OT Services Indicated Yes Treatment Frequency and 1x/week for 5 visits Duration These treatments will address the objective and functional deficits as defined above. The patient will be advanced safely and appropriately in order for the patient to progress towards his/her prior level of function. Additional exercises will be introduced and as well as a comprehensive home exercise program upon discharge, if needed, ?to ensure carryover of functional gains achieved in the clinic. This treatment plan has been reviewed and agreement upon by the patient.
--- NOTE | 2024-08-26 09:01 | OPREHPOC ---
Outpatient Therapy Plan of Care This is a Multidisciplinary Plan of Care that may contain components documented by all disciplines (PT, OT, and ST.) OT Problem 1 OT Problem #1 Knowledge Deficit OT Goal 1 Goal / Goal Update Pt to be independent with instructed materials. Target Visit 5 OT Problem 2 OT Problem #2 Pain OT Goal 1 Goal / Goal Update Patient to report reduced pain in the right hand/ thumb, reporting no instances of 10/10 pain during ADLs. Target Visit 5 OT Problem 3 OT Problem #3 Impaired Strength OT Goal 1 Goal / Goal Update Patient to be able to progress functional strengthening of the thumb: 1. improve 1st dorsal interossei strength to x20 reps with rubber band with good mechanics 2. improve gross seo team lead strength to be able to complete putty HEP with yellow putty Target Visit 5
--- NOTE | 2024-10-07 13:38 | OTOPDC ---
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 She reports that her experiences with 8/ 10 pains are less and less frequent. She reports less and less pain during ADLs. On a daily basis she experiences 4/10. She has been wearing a forearm based thumb spica, which she reports helps support and immobilize her for pain relief. She has been doing active ROM and gentle annual giving director/pinch strengthening. Reported Pain Level Pain Score 4/10 currently Additional Pain Score Comments at best 2/10 at worst 8/10 Reports she no longer experiences 10/10 pain Assessment OT Clinical Summary Patient referred to OT with dx of OA of her 1st CMC. She is many years s/p soft tissue arthroplasty of the thumb and reports chronic pain with use. Patient's thumb presents in a collapsed position - thumb adduction, CMC supination, and MCP hyperextension. 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 She is making progress with therapy as noted by reduced pain and improved functional hand use during ADLs. She is utilizing better thumb mechanics during functional pinching. She has progressed to gentle wrist and annual giving director/pinch strengthening. She is utilizing an immobilizer, heat/ice, and a massager for pain relief at home. At this time she is independent with instructed materials. D/C OT. OT Services Indicated No
== END 2024-10-08 11:43 | disposition home or self-care (01) ==
LOC: ANHGOSHOT 13:00
PROVIDERS: PCP Internal Medicine; Visit Provider Physician Assistant Surgical
DX: M18.11 Unilateral primary osteoarthritis of first carpometacarpal joint, right hand (principal)
CPT/HCPCS: 97018; 97110; 97140; 97165; L3913

== ENCOUNTER 2025-02-16 08:20 | Outpatient (CLI) | payer MEDICARE, BC, SELFPAY ==
--- NOTE | ~2025-02-16 | XR_ITS ---
EXAM/PROCEDURE: XR UGI w small bowel HISTORY: R11.10 - Vomiting, unspecified, REFLUX, COMPARISON: None TECHNIQUE: Upper GI with air-contrast and small bowel follow-through series performed. NOTE: Patient had significant difficulty drinking barium contrast. Subsequently, suboptimal volume was administered. Fluoroscopy time: 2.2 minutes DAP: 215.177 Trejo per square centimeter Number of images: 51 FINDINGS: No acute abnormality seen on the tree scout image. Following administration of oral effervescent crystals, and thick barium, patient had some difficulty the swallowing and drinking contrast. Tertiary contractions were noted. No large ulceration stricture or stenosis seen. On repositioning of the patient, spontaneous gastroesophageal reflux to the midesophagus was noted. No definite hiatal hernia. In the stomach and duodenal bulb region, air contrast images were nondiagnostic. No large ulceration or obvious mass seen. On small bowel follow series, the duodenum CT to the left of midline and there is no evidence of stricture stenosis or obstruction. Contrast did take some time, almost 2 hours to get to the large bowel. IMPRESSION: 1. Tertiary contractions consistent with esophagitis and is spontaneous gastroesophageal reflux to the midesophagus. 2. Nondiagnostic air contrast evaluation of the stomach and duodenal bulb. Correlate with EGD is suggested for optimal evaluation. 3. Borderline delayed transit of contrast through the small bowel likely associated is much with very limited oral intake due to limitations noted above. Reviewed, dictated and finalized at location A. D PSYCHOLOGY TEACHER IMPRESSION: 1. Tertiary contractions consistent with esophagitis and is spontaneous gastroe sophageal reflux to the midesophagus. 2. Nondiagnostic air contrast evaluation of the stomach and duodenal bulb. Contreras elate with EGD is suggested for optimal evaluation. 3. Borderline delayed transit of contrast through the small bowel likely associ ated is much with very limited oral intake due to limitations noted above.
== END 2025-02-16 08:21 | disposition home or self-care (01) ==
PROVIDERS: PCP Nurse Practitioner; Visit Provider Nurse Practitioner Family
DX: K21.9 Gastro-esophageal reflux disease without esophagitis (principal)
CPT/HCPCS: 74240; 74248

== ENCOUNTER 2025-02-24 10:08 | Outpatient (CLI) | payer MEDICARE, BC, SELFPAY ==
--- NOTE | ~2025-02-24 | CT_ITS ---
EXAMINATION: CT abdomen pelvis wo con DATE: 02/24/2025 10:28 INDICATION: Right flank pain. TECHNIQUE: Computed tomography (CT) of the abdomen and pelvis was performed without intravenous contrast. Automated exposure control and iterative reconstruction technique were employed. The dose-length product was 866.40 mGy-cm. COMPARISON: CT dated 04/19/2023. FINDINGS: No acute findings at the lung bases. Cardiomegaly. No focal lesions of the liver and spleen. Gallbladder is surgically absent. Pancreas shows no acute findings. No calculi or obstruction of the kidneys. No evidence of small bowel obstruction. Diverticulosis of distal colon. No free fluid. No free air. Scoliosis of lumbosacral spine with multilevel degenerative disc disease. IMPRESSION: 1. Limited noncontrast CT, not optimal to evaluate solid viscera, vascular structures and neoplasms. 2. No calculi or obstruction of the kidneys. 3. Scoliosis of lumbosacral spine with multilevel degenerative disc changes. 4. Diverticulosis of distal colon. Reviewed, dictated and finalized at location T. ERY SCHOOL ATTENDANT IMPRESSION: 1. Limited noncontrast CT, not optimal to evaluate solid viscera, vascular stru ctures and neoplasms. 2. No calculi or obstruction of the kidneys. 3. Scoliosis of lumbosacral spine with multilevel degenerative disc changes. 4. Diverticulosis of distal colon.
== END 2025-02-24 10:09 | disposition home or self-care (01) ==
LOC: MICIMG 10:09
PROVIDERS: PCP Nurse Practitioner; Visit Provider Nurse Practitioner Family
DX: K57.30 Diverticulosis of large intestine without perforation or abscess without bleeding (principal); M41.87 Other forms of scoliosis, lumbosacral region; M51.379 Other intervertebral disc degeneration, lumbosacral region without mention of lumbar back pain or lower extremity pain
CPT/HCPCS: 74176

== ENCOUNTER 2025-03-09 14:05 | Outpatient (NON) | payer MEDICARE, BC, SELFPAY ==
[2025-03-09 15:18] LABS: Toxigenic C. Diff NEGATIVE (NEGATIVE)
[2025-03-11 18:08] LABS: Pancreatic Elastase, Fecal 57 (>200)
[2025-03-12 08:08] LABS: Calprotectin, Fecal 144 ug/g (0-120)
== END 2025-03-09 14:06 | disposition home or self-care (01) ==
LOC: ANHLAB 14:06
PROVIDERS: PCP Nurse Practitioner; Visit Provider Nurse Practitioner Family
DX: R19.7 Diarrhea, unspecified (principal)
CPT/HCPCS: 82653; 83993; 87045; 87046; 87427; 87493

== ENCOUNTER 2025-03-12 01:26 | Day surgery (SDC) | payer MEDICARE, BC, SELFPAY ==
[2025-02-24 13:16] VITALS: BMI 31.0
--- NOTE | 2025-02-24 13:27 | PC.NURSE ---
Spoke with patient regarding medication Eliquis. Patient verbalizes understanding that the last dose is to be taken on 03/09/25 and the Endoscopist will instruct them when to restart after the procedure.
--- OUTSIDE RECORDS SUMMARY | 2025-03-12 01:29 | XMS_ITS | Clinical Summary ---
Author Organization [facility] Address [address] [place] [address] Care Team Providers Care Instructor Nurse Name Role Phone Unavailable Primary Care Provider Unavailabl e Source Comments [facility],non-owned Affiliates and Associated Physician Practices is amultiple site organization consisting of ambulatory clinics and hospital sitesin [place], [place], [place] and [place]. This disclosure is being madepursuant to the Care Everywhere program and may not contain all information available regarding this patient. Last updated 17.[facility] Social History Tobacco Use Types Packs/Day [...] 01/23/2006 ZOSTER VACCINE (1 of 2) 01/23/2006 DEPRESSION SCREENING 04/02/2024 COVID-19 VACCINE (1 - 2024-2 6 season) 2024 INFLUENZA VACCINE (#1) 2024 Respiratory Syncytial Virus (RSV) Vaccine Pt: [...] age to complete this topic Insurance MEDICARE [facility]
--- OUTSIDE RECORDS SUMMARY | 2025-03-12 01:29 | XMS_ITS | Encounter Summary ---
Author Organization [facility] Address [address] [place] [address] Care Team Providers Care Glycerin Operator Name Role Phone Unavailable Primary Care Provider Unavailabl e Prior Encounters Date Type Department Care Team Description 04/21/2019 Converted CPS Chart Documents [facility] [address] [facility], [address] [place] [phone] <No scans attached> 04/21/2019 Converted CPS Chart Documents [facility] [address] [facility], [address] [address] <No scans attached> 04/21/2019 Converted 13x Documents [facility] [address] [facility], [address] [place] [address] <No scans attached> 04/21/2019 Converted 13x Documents [facility] [address] [facility], [address] [place] [address] <No scans attached> Plan of [...] 31 ENDODONTIC THERAPY, MOLAR TOOTH (EXCLUDING FINAL DENOMINATIONAL) Routine 08/07/2018 12:00 AM PDT 3 ENDODONTIC THERAPY, MOLAR TOOTH (EXCLUDING FINAL DENOMINATIONAL) Routine 08/07/2018 12:00 AM PDT 3 ENDO CONSULT Routine 08/07/2018 12:00 AM PDT 4 [...] 19 ENDODONTIC THERAPY, MOLAR TOOTH (EXCLUDING FINAL DENOMINATIONAL) Routine 05/04/2008 12:00 AM PST 4 ENDODONTIC THERAPY, PREMOLAR TOOTH (EXCLUDING FINAL DENOMINATIONAL) Routine 05/04/2008 12:00 AM PST 5 MODL [...]
--- OUTSIDE RECORDS SUMMARY | 2025-03-12 01:29 | XMS_ITS | Clinical Summary ---
Author Organization [facility] Address [address] [place] [place] [address] Care Team Providers Care Glost Kiln Operator Name Role Phone Unavailable Primary Care [...] tablet Take 20 mg by mouth daily. 05/11/202 3 Active Active Problems No known active problems Encounters Date Type Department Care Team Description 01/28/2025 External Device Data STL ABSTRACTION Provider, Abstract 01/27/2025 External Device Data STL ABSTRACTION Provider, Abstract 01/21/2025 External Device Data STL ABSTRACTION Provider, Abstract 01/20/2025 External Device Data STL ABSTRACTION Provider, Abstract 12/16/2024 External Device Data STL ABSTRACTION Provider, Abstract [...] 1:29 PM CDT Height 160 cm (5' 3) 01/31/2024 1:29 PM CDT Body Mass Index 33.48 01/31/2024 1:29 PM CDT Plan of Treatment Health Maintenance Due Date Last Done Comments DIABETES ANNUAL FOOT EXAM 01/23/1974 DIABETES MICROALBUMIN ANNUAL SCREEN 01/23/1974 LDL CHOLESTEROL ANNUAL 01/23/1974 DTAP/TDAP/TD VACCINES (1 - Tdap) 01/23/1975 PNEUMOCOCCAL VACCINE 50+ YEA RS (1 of 2 - PCV) 01/23/1975 FIT-DNA Q 3 years 01/23/2001 FIT/FOBT Q 1 year 01/23/2001 Flex Sig/CT Colonography Q 5 years 01/23/2001 RSV VACCINE (60+ or ) (1 - Risk 50-74 years 1-dose series) 01/23/2006 ZOSTER VACCINE (1 of 2) 01/23/2006 DIABETES ANNUAL RETINAL EXAM 12/23/2022 12/23/2021 INFLUENZA VACCINE (#1) 2024 01/13/2021 DIABETES HBA1C Q 6 MONTHS 12/14/20242024, 12/10/2023, 06/11/2023, Additional history exists BREAST CANCER SCREENING 08/29/2025 08/30/19, 08/29/2024, 08/28/2023, Additional history exists OSTEOPOROSIS SCREENING 03/08/2027 03/08/2022 COLORECTAL SCREENING 09/28/2032 09/28/2022 Colorectal Cancer Screening 09/28/2032 Insurance MEDICARE PART A AND B [facility]
--- OUTSIDE RECORDS SUMMARY | 2025-03-12 01:29 | XMS_ITS | Encounter Summary ---
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 Gender Identity Female 02/15/2022 10:12 AM COLD ROLL PACKER SHEET IRON Sexual Orientation Straight 02/15/2022 10 :12 AM COLD ROLL PACKER SHEET IRON documented as of this encounter Plan of Treatment Not on file documented as of this encounter Procedures Procedure Name Priority Date/Time Associated Diagnosis Comments SCAN - LABS 02/06/2024 documented in this encounter Results * SCAN - LABS (02/06/2024) us Provider Scanning Final Result documented in this encounter Visit Diagnoses Not on filedocumented in this encounter Care Teams Clinical Analyst Relationship Specialty Start Date End Date Ibrahima Ramos DO PCP - General Internal Medicine 02/08/22 Bayron Mayes MD [address] [place] [address] Referring Physician General Surgery 06/04/23 03/04/24 Young Mcgrath MD [address] [place] [address] Consulting Physician Medical Oncology 02/20/24 4 Referral, Self 02/20/24 Spike Stevenson MD Medical Oncologist/Patient Services Representative Medical Oncology 02/27/24 documented as of this encounter
--- OUTSIDE RECORDS SUMMARY | 2025-03-12 01:29 | XMS_ITS | Encounter Summary ---
Author Organization [facility] Address [address] [place] [address] Phone Care Team Providers Care Cementer Machine Joiner Name Role Phone Ibrahima Ramos DO Primary Care Provider [phone] Bayron Mayes MD Unavailable [phone] Young Mcgrath MD Unavailable Referral, Self Unavailable Unavailable Spike Stevenson MD Unavailable [phone] Encounter Details Date Type Department Care Team [...] on file Legal Sex Female 7:54 AM ANIMAL TECH Gender Identity Female 02/15/2022 10:12 AM ANIMAL TECH Sexual Orientation Straight 02/15/2022 10 :12 AM ANIMAL TECH documented as of this encounter Plan of Treatment Not on file documented as of this encounter Procedures Procedure Name Priority Date/Time Associated Diagnosis Comments SCAN - LABS 01/07/2024 documented in this encounter Results * SCAN - LABS (01/07/2024) us Provider Scanning Final Result documented in this encounter Visit Diagnoses Not on filedocumented in this encounter Care Teams Cementer Machine Joiner Relationship Specialty Start Date End Date Ibrahima Ramos DO PCP - General Internal Medicine 02/08/22 Bayron Mayes MD [address] [place] [address] Referring Physician General Surgery 06/04/23 03/04/24 Young Mcgrath MD [address] [place] [address] Consulting Physician Medical Oncology 02/20/24 4 Referral, Self 02/20/24 Spike Stevenson MD Medical Oncologist/Oven Roaster Medical Oncology 02/27/24 documented as of this encounter
--- OUTSIDE RECORDS SUMMARY | 2025-03-12 01:29 | XMS_ITS | Encounter Summary ---
Author Organization [facility] Address [address] [place] [address] Phone Care Team Providers Care Fur Trimmer Name Role Phone Ibrahima Ramos DO Primary Care Provider [phone] Bayron Mayes MD Unavailable [phone] Young Mcgrath MD Unavailable Referral, Self Unavailable Unavailable Spike Stevenson MD Unavailable [phone] Encounter Details Date Type Department Care Team [...] on file Legal Sex Female 7:54 AM SKIVER HAND Gender Identity Female 02/15/2022 10:12 AM SKIVER HAND Sexual Orientation Straight 02/15/2022 10 :12 AM SKIVER HAND documented as of this encounter Plan of Treatment Not on file documented as of this encounter Procedures Procedure Name Priority Date/Time Associated Diagnosis Comments SCAN - LABS 02/04/2024 documented in this encounter Results * SCAN - LABS (02/04/2024) us Provider Scanning Final Result documented in this encounter Visit Diagnoses Not on filedocumented in this encounter Care Teams Fur Trimmer Relationship Specialty Start Date End Date Ibrahima Ramos DO PCP - General Internal Medicine 02/08/22 Bayron Mayes MD [address] [place] [address] Referring Physician General Surgery 06/04/23 03/04/24 Young Mcgrath MD [address] [place] [address] Consulting Physician Medical Oncology 02/20/24 4 Referral, Self 02/20/24 Spike Stevenson MD Medical Oncologist/Leather Scraper Medical Oncology 02/27/24 documented as of this encounter
--- OUTSIDE RECORDS SUMMARY | 2025-03-12 01:29 | XMS_ITS | Encounter Summary ---
Author Organization [facility] Address [address] [place] [address] Phone Care Team Providers Care Director Of Events Name Role Phone Ibrahima Ramos DO Primary Care Provider [phone] Bayron Mayes MD Unavailable [phone] Young Mcgrath MD Unavailable Referral, Self Unavailable Unavailable Spike Stevenson MD Unavailable [phone] Encounter Details Date Type Department Care Team [...] on file Legal Sex Female 7:54 AM C D STRIPPER Gender Identity Female 02/15/2022 10:12 AM C D STRIPPER Sexual Orientation Straight 02/15/2022 10 :12 AM C D STRIPPER documented as of this encounter Plan of Treatment Not on file documented as of this encounter Procedures Procedure Name Priority Date/Time Associated Diagnosis Comments SCAN - LABS 01/15/2024 documented in this encounter Results * SCAN - LABS (01/15/2024) us Provider Scanning Final Result documented in this encounter Visit Diagnoses Not on filedocumented in this encounter Care Teams Director Of Events Relationship Specialty Start Date End Date Ibrahima Ramos DO PCP - General Internal Medicine 02/08/22 Bayron Mayes MD [address] [place] [address] Referring Physician General Surgery 06/04/23 03/04/24 Young Mcgrath MD [address] [place] [address] Consulting Physician Medical Oncology 02/20/24 4 Referral, Self 02/20/24 Spike Stevenson MD Medical Oncologist/Placer Miner Medical Oncology 02/27/24 documented as of this encounter
--- OUTSIDE RECORDS SUMMARY | 2025-03-12 01:29 | XMS_ITS | Encounter Summary ---
Author Organization [facility] Address [address] [place] [address] Care Team Providers Care Recycle Coordinator Name Role Phone Unavailable Primary Care Provider Unavailabl e Encounter Details Date Type Department Care Team (Late st Contact Info) Description 03/09/2023 Lab Requisition [facility] - DermPath Lab [address] [place] [id number] Genesis Quintero MD [address] [id number] Neoplasm of uncertain behavior of skin Social [...] Diagnosis Comments DERMATOPATHOLOGY Routine 03/09/2023 3:33 AM HOSPITALITY HOUSE SUPERVISOR Neoplasm of uncertain behavior of skin documented in this encounter Results * DERMATOPATHOLOGY (03/09/2023 3:33 AM HOSPITALITY HOUSE SUPERVISOR) Case Report Dermatopathology Report Case: [id number] Authorizing Provider: Genesis Quintero MD Collected: 03/09/2023 03:33 AM Ordering Location: [facility] DermPath Lab Received: 03/12/2023 09:22 AM Pathologist: Eileen Loyola MD Specimens: A) - Skin, right lateral proximla upper arm B) - Skin, right suprapubic skin 12:53 PM HOSPITALITY HOUSE SUPERVISOR DERMATOPATHOLOGY LABORATORY Final Diagnosis Specimen A. 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 SKIN, right suprapubic skin: BASAL CELL CARCINOMA, FIBROEPITHELIOMA TYPE (C44.519) GRANULOMATOUS DERMATITIS CONSISTENT WITH A RUPTURED CYST OR HAIR FOLLICLE (L72.0) 3 12:53 PM [facility] DERMATOPATHOLOGY LABORATORY at [address] HOSPITALITY HOUSE SUPERVISOR Clinical History A: R/O Atypical Melanocytic Process B: Fibroepithelial Polyp 3 12:53 PM [facility] DERMATOPATHOLOGY LABORATORY Gross Description Specimen A: [...] 15x6x3 mm. Jar 0. 3 12:53 PM [facility] DERMATOPATHOLOGY LABORATORY Microscopic Description Specimen A. [...] present within the dermis. 3 12:53 PM [facility] DERMATOPATHOLOGY LABORATORY Disclaimer An external and internal positive and negative controls are appropriate for the histochemical, immunohistochemical and immunofluorescence stain(s) in this case (if any), except where stated explicitly. The performance characteristics of the stain(s) cited in this report were developed and its performance characteristic determined by the Dermatopathology Laboratory at [facility], directed by Dr. Miguel Angel Cruz. These tests need not be, and therefore are not, approved by the [place] Food and Drug Administration. The tests are used for clinical purposes. Billing Codes Specimen Charges Stain Charges 47043 72851 1 1 3 12:53 PM HOSPITALITY HOUSE SUPERVISOR DERMATOPATHOLOGY LABORATORY Embedded Images 3 12:53 PM HOSPITALITY HOUSE SUPERVISOR DERMATOPATHOLOGY LABORATORY Pathology/Cytology TISSUE SPECIMEN FROM SKIN / Unknown 03/09/2023 3:33 AM HOSPITALITY HOUSE SUPERVISOR 03/12/2023 9:22 AM HOSPITALITY HOUSE SUPERVISOR Miscellaneous samples (specimen) TISSUE SPECIMEN FROM SKIN / Unknown 03/09/2023 3:33 AM HOSPITALITY HOUSE SUPERVISOR 03/12/2023 9:22 AM HOSPITALITY HOUSE SUPERVISOR us Genesis Quintero MD LAB - PATHOLOGY/CYTOLOG Y ORDERABLES Final Result DERMATOPATHOLOGY LABORATORY [facility] - Department of Dermatology [facility] Special[facility] [address] [place] [address], [address] [phone] documented in this encounter Visit Diagnoses Diagnosis Neoplasm of uncertain behavior of skin documented in this encounter
--- OUTSIDE RECORDS SUMMARY | 2025-03-12 01:29 | XMS_ITS | Encounter Summary ---
Author Organization [facility] Address [address] [address] Care Team Providers Care Security Services Specialist Name Role Phone Unavailable Primary Care Provider Unavailabl e Encounter Details Date Type Department Care Team (Late st Contact Info) Description 09/16/2024 Lab Requisition [facility] - DermPath Lab [address] [place] [address] Genesis Quintero MD [address] [address] Social History Tobacco Use Types Packs/Day Years [...] Priority Date/Time Associated Diagnosis Comments DERMATOPATHOLOGY Routine 09/15/2024 12:0 0 AM CDT documented in this encounter Results * DERMATOPATHOLOGY (09/15/2024 12:00 AM CDT) Case Report Dermatopathology Report Case: [id number] Authorizing Provider: Genesis Quintero MD Collected: 09/15/2024 12:00 AM Ordering Location: [facility] Physician [facility] - Received: 09/16/2024 07:30 AM DermPath Lab Pathologist: Raysa Mccracken MD Specimen: Skin, forehead medial 5:03 PM CDT DERMATOPATHOLOGY LABORATORY Final Diagnosis Specimen A. SKIN, forehead medial: HYPERPLASTIC (HYPERTROPHIC) ACTINIC KERATOSIS, ERODED (L57.0) 5:03 PM CDT DERMATOPATHOLOGY LABORATORY at 1703 CDT Clinical History Neoplasm of Uncertain Behavior; R/O SCC, Irritated Seborrheic Keratosis 5:03 PM CDT DERMATOPATHOLOGY LABORATORY Gross Description Specimen A: Received is one formalin filled container labeled with the patient's name and designated forehead medial. The specimen consists of a shave biopsy measuring 5x4x1 mm. Jar 0. 5:03 PM CDT DERMATOPATHOLOGY LABORATORY Microscopic Description Specimen A. SKIN, forehead medial: There is hyperkeratosis alternating with parakeratosis. There is epidermal hyperplasia with disorderly maturation of keratinocytes with nuclear pleomorphism confined to the lower half of the epidermis. The epidermis is eroded. 5:03 PM CDT DERMATOPATHOLOGY LABORATORY Disclaimer An external and internal positive and negative controls are appropriate for the histochemical, immunohistochemical and immunofluorescence stain(s) in this case (if any), except where stated explicitly. The performance characteristics of the stain(s) cited in this report were developed and its performance characteristic determined by the Dermatopathology Laboratory at [facility], directed by Dr. Miguel Angel Cruz. These tests need not be, and therefore are not, approved by the [place] Food and Drug Administration. The tests are used for clinical purposes. Billing Codes Specimen Charges Stain Charges 38446 1 5:03 PM CDT DERMATOPATHOLOGY LABORATORY Embedded Images 5:03 PM CDT DERMATOPATHOLOGY LABORATORY Pathology/Cytolog y TISSUE SPECIMEN FROM SKIN / Unknown 09/15/2024 09/16/2024 7:30 AM CDT Genesis Quintero MD LAB - PATHOLOGY/CYTOLOG Y ORDERABLES Final Result DERMATOPATHOLOGY LABORATORY [facility] - Department of Dermatology [address], [address] [phone] documented in this encounter Visit Diagnoses Not on filedocumented in this encounter
--- OUTSIDE RECORDS SUMMARY | 2025-03-12 01:29 | XMS_ITS | Clinical Summary ---
Author Organization [facility] Address [address] [place] [address] Care Team Providers Care Explosive Technician Name Role Phone Ibrahima Ramos DO Primary Care Provider [phone] Referral, Self Unavailable Unavailable Spike Stevenson MD Unavailable Allergies Active Allergy Reactions Criticality Noted Date Comments Amoxicillin-Pot Clavulanate Vomiting Low 01/11/2021 Codeine Vomiting Low 04/19/2022 Fentanyl Other (See comments),Seizures High 01/11/2021 Patient reports cardiac arrest Flecainide Dizziness,Nausea only Low 04/27/2023 Niacin Itching Low 04/07/2022 Medications albuterol HFA (PROVENTIL HFA,VENTOLIN HFA,PROAIR HFA) 90 mcg/actuation inhalerIndicatio ns:Acute Asthma Attack Inhale 2 puffs every 6 (six) hours as needed for wheezing Activ e sertraline (ZOLOFT) 100 mg tabletIndication s:Generalized Anxiety Disorder Take 1 tablet (100 mg total) by mouth every morning Active levothyroxine (SYNTHROID) 50 mcg tabletIndication s:hypothyroidism Take 1 tablet (50 mcg total) by mouth nightly Active acetaminophen-as pirin-caffeine (EXCEDRIN MIGRAINE) 250-250-65 mg per tabletIndication s:Migraine,Pain Take 1 tablet by mouth every 6 (six) hours as needed Active Gemtesa 75 mg tabletIndication s:Bladder Hyperactivity Take 75 mg by mouth nightly 022 Active erenumab-aooe 140 mg/mL auto-injectorInd ications:Migrain e Prevention Inject 1 mL (140 mg total) under the skin every 30 (thirty) days 1st of every month Active ohzekmso96-bdzg- Lmfolate-algal 27 mg iron-1.13 mg-581.92 mg capsuleIndicatio ns:health Take 1 capsule by mouth every morning Activ e loratadine (CLARITIN) 10 mg tabletIndication s:Allergic Rhinitis Take 1 tablet (10 mg total) by mouth every morning Active cholecalciferol, vitamin D3, (D3-5000 ORAL)Indications :supplement Take 5,000 Units by mouth every morning Activ e vit C,Y-Ar-zqeow-lut ein-zeaxan 250-90-40-1 mg capsuleIndicatio ns:eye health Take 1 capsule by mouth nightly Active cyanocobalamin (Vitamin B-12) 1,000 mcg sublingual tabletIndication s:Prevention of Vitamin B12 Deficiency Take 1 tablet (1,000 mcg total) by mouth nightly Active furosemide (LASIX) 20 mg tabletIndication s:Edema, lower extremity Take 1 tablet (20 mg total) by mouth daily 90 tablet 3 023 Active apixaban (ELIQUIS) 5 mg tablet Take 1 tablet (5 mg total) by mouth 2 (two) times a day 180 tablet 1 023 Active Klor-Con M20 20 mEq CR tabletIndication s:MGUS (monoclonal gammopathy of unknown significance) Take 1 tablet (20 mEq total) by mouth daily Act tobi metoprolol XL (TOPROL-XL) 25 mg extended release tabletIndication s:MGUS (monoclonal gammopathy of unknown significance) Take 1 tablet (25 mg total) by mouth daily 024 Active fluticasone propionate (FLONASE) 50 mcg/actuation nasal sprayIndications :MGUS (monoclonal gammopathy of unknown significance) Administer 1 spray into affected nostril(s) daily as needed Active hydroCHLOROthiaz kellie (HYDRODIURIL) 25 mg tablet Take 1 tablet (25 mg total) by mouth daily 025 Active lisinopriL (PRINIVIL,ZESTRI L) 20 mg tablet Take 1 tablet (20 mg total) by mouth daily 025 Active lovastatin (MEVACOR) 40 mg tablet Take 1 tablet (40 mg total) by mouth nightly 025 Active omeprazole (PriLOSEC) 40 mg capsule Take 1 capsule (40 mg total) by mouth daily 025 Active Ozempic 0.25 mg or 0.5 mg (2 mg/3 mL) pen injector injection INJECT 0.5MG SUBCUTANEOUSLYONCE WEEKLY (EVERY 7 DAYS) 025 Active Mounjaro 7.5 mg/0.5 mL pen injector injection 025 Active Active Problems Problem Noted Date Diagnosed Date MGUS (monoclonal gammopathy of unknown significa nce) 03/03/2024 Recurrent incisional hernia 06/05/2022 Recurrent incisional hernia with incarceration 0 04/20/2022 Overview (04/20/2022): Added automatically from request for surgery [id number] Cardiomegaly 04/19/2022 Longstanding persistent atrial fibrillation 04/02 [...] Morbid obesity (HCC) Type 2 diabetes mellitus Depression Thyroid disease Cardiomegaly Other complications of [...] file Legal Sex Female 7:54 AM BUSINESS INVESTOR Gender Identity Female 02/15/2022 10:12 AM BUSINESS INVESTOR Sexual Orientation Straight 02/15/2022 10 :12 AM BUSINESS INVESTOR Last Filed Vital Signs Vital Sign Reading Time Taken Comments Blood Pressure 112/70 09/02/2024 10:11 AM CDT Pulse 64 09/02/2024 10:11 AM CDT Temperature 36.4 C (97.6 F) 09/02/2024 10:11 AM CDT Respiratory Rate 18 09/02/2024 10:11 AM CDT Oxygen Saturation 98% 09/02/2024 10:11 AM CDT Inhaled Oxygen Concentration - - Weight 83.7 kg (184 lb 9.6 oz) 09/02/2024 10:11 AM CDT Height 160 cm (5' 3) 03/03/2024 2:03 PM BUSINESS INVESTOR Body Mass Index 32.7 03/03/2024 2:03 PM BUSINESS INVESTOR Plan of Treatment Health Maintenance Due Date Last Done Comments Breast Cancer Screening-Mammogram 1955 Colon Cancer Screening-Colonoscopy 1955 Depression Screening 1955 Hepatitis C Screening 1955 Osteoporosis Screening-Bone Density Scan 1955 DTaP/Tdap/Td Vaccine (1 - Tdap) 01/23/1967 Hepatitis B Screening 01/23/1974 Well Visit 65+ 01/23/2021 Fall Risk Assessment 06/09/2023 06/08/2022 Covid-19 Vaccine ( season) 12/01/202410/2021, 06/30/2021 Influenza Vaccine (#1) 2024 12/08/2021, 2020 Pneumococcal vaccine 65+ Completed 06/13/2021 Zoster Vaccine Completed 08/24/2021, 06/13/2021 Medical Devices Implanted Type Area Painter And Decorator Device Identifier Shelf Expiration Date Model / Serial / Lot [employer]/C R Bard [id number] Monofilament Soft Lightweight Low Profile Square - [id number] Implanted:Qty: 1 on 06/05/2022 by Bayron Mayes MD at [facility] Mesh N/A: Abdomen [employer]/C R Bard [id number] 09/27/2026 [id number] / / [id number] Insurance MEDICARE [facility] Member Subscriber Plan / Payer (Ef fective 2021-Present) Name:Kari Marrero Relation to Subscriber:Spouse Name:JARETT MARRERO Date of :1947 (Home) Address: [address] [place] [address] Payer ID:[id number] (NAIC) Group ID:[id number] Type:[facility] Address: [address] [place] [id number] [facility] [employer] MED[employer] MEDICARE [facility] [employer] Advance Directives For more information, please contact: [phone] Documents on File Type Date Recorded Patient School Nurse Expl anation ADVANCE DIRECTIVE 06/05/2022 7:11 AM Power of Jewel Lathe Operator-Medical * Full Code (Latest Code Status on File) Date Activated Date Inactivated Comments 06/05/2022 2:22 PM 06/08/2022 3:57 PM Care Teams Explosive Technician Relationship Specialty Start Date End Date Ibrahima Ramos DO PCP - General Internal Medicine 02/08/22 Referral, Self 02/20/24 Spike Stevenson MD Medical Oncologist/K [employer] Principal Medical Oncology 02/27/24
[2025-03-12 08:15] VITALS: BP 120/64; PULSE 61; RESP 18; TEMP 36.2; O2SAT 97
[2025-03-12] MEDS: LACTATED RINGERS 1,000 ML 150 ML IV CONT (08:21)
--- NOTE | 2025-03-12 08:28 | P.PNAN_ITS ---
Anes - Initial Pre Proc Eval Procedure: Operation Date: 03/12/25 08:45 Proposed Procedures p Esophagogastroduodenoscopy - Ian Wood MD Date/Time: 03/12/25 08:28 Surgeon: Ian Wood MD Pre Op Diagnosis: Gastro-esophageal reflux disease without esophagit Patient Data Age: 70 Gender: F Height: 1.6 m Weight: 77.5 kg Allergies Allergy/AdvReac Type Severity Reaction Status Date / Time fentanyl Allergy CARDIAC Verified 03/12/25 08:07 ARREST flecainide Allergy Dizziness Verified 03/12/25 08:07 niacin Allergy Hives Verified 02/24/25 13:12 amoxicillin (From Augmentin) AdvReac Vomiting Verified 02/24/25 13:12 clavulanic acid (From AdvReac Vomiting Verified 02/24/25 13:12 Augmentin) codeine AdvReac Vomiting Verified 02/24/25 13:12 Home Medications ?Medication ?Instructions ?Recorded ?Confirmed ?Type jwymogd-jttgaxuoncpjj-qvltgevk 250 0.5 tablet PO DAILY PRN migraine 06/07/21 02/24/25 History mg-250 mg-65 mg tablet (Excedrin headache Migraine) vibegron 75 mg tablet (Gemtesa) 75 mg PO DAILY 2 02/24/25 History polyethylene glycol 3350 17 gram 17 g PO DAILY PRN con stipation 11/21/23 02/24/25 History oral powder packet (Miralax) triamcinolone acetonide 0.1 % 1 applic topical DAILY P RN rash 11/21/23 02/24/25 Rx lotion #60 mL albuterol sulfate 90 mcg/actuation 1 inh inhalation Q4 H PRN Allergic 01/14/24 02/24/25 Rx aerosol inhaler Symptoms #25.5 grams hydrochlorothiazide 25 mg tablet 25 mg PO DAILY #90 ta bs 06/25/24 02/24/25 Rx levothyroxine 50 mcg tablet See Rx Instructions .Route 06/25/24 02/24/25 Rx (Synthroid) .COMPLEX #90 tabs lovastatin 40 mg tablet See Rx Instructions .Route 0 06/25/24 02/24/25 Rx .COMPLEX #90 tabs sertraline 100 mg tablet (Zoloft) 100 mg PO DAILY #90 tabs 06/25/24 02/24/25 Rx erenumab-aooe 140 mg/mL See Rx Instructions .Route 0 10/22/24 02/24/25 Rx subcutaneous auto-injector .COMPLEX #3 mL (Aimovig Autoinjector) apixaban 5 mg tablet (Eliquis) 5 mg PO BID #180 tabs 0 12/10/24 03/12/25 Rx metoprolol succinate 25 mg 12.5 mg PO DAILY 01/06/25 1 04/26/24 History tablet,extended release 24 hr colestipol 1 gram tablet 1 g PO BID #60 tabs 01/09/25 02/24/25 Rx polyethylene glycol 3350 17 gram 17 g PO BID #100 ea 1 02/24/25 Rx oral powder packet (Miralax) tirzepatide 7.5 mg/0.5 mL 7.5 mg (0.5 mL) subcut WEEKL Y #2 mL 01/09/25 02/24/25 Rx subcutaneous pen injector (Mounjaro) ferrous sulfate 325 mg (65 mg 325 mg PO DAILY #90 tabs 01/12/25 02/24/25 Rx iron) tablet esterified 1 tablet PO DAILY #90 tabs 1 04/05/24 02/24/25 Rx estrogens-methyltestosterone 1.25 mg-2.5 mg tablet lansoprazole 30 mg capsule,delayed 30 mg PO BID #180 c aps 02/17/25 02/24/25 Rx release nystatin 100,000 unit/gram topical 1 applic topical TI D PRN as needed 02/24/25 02/24/25 History powder potassium chloride 20 mEq 40 meq PO BID 02/24/2502/24 History tablet,extended release(part/cryst) (Klor-Con M) Laboratory Tests 03/12/25 08:18 POC Capillary Glucose 86 mg/dl (65-105) Patient hx anesthesia problems: none Family hx anesthesia problems: none Results Review: All pre-operative results and documents have been reviewed as part of the pre-operative evaluation. [facility] Past Medical History Medical History MGUS (monoclonal gammopathy of unknown significance) Chronic anticoagulation History of cardioversion Nausea and vomiting in adult Abnormal CT scan, esophagus History of multiple miscarriages Obesity (BMI 30-39.9) Liver hemangioma Constipation RLQ abdominal mass Constipation Chronic kidney disease COPD (chronic obstructive pulmonary disease) Skin cancer Diverticulosis PTSD (post-traumatic stress disorder) Fusion of joint Ventral incisional hernia Hyperlipidemia Migraines Hematuria Interstitial cystitis Thyroid disorder Kidney disease Hypertension Headache GERD (gastroesophageal reflux disease) Absence of gallbladder Diabetes Arthritis Anxiety Asthma Surgical History Surgical History H/O cardiac radiofrequency ablation (~10/2022) H/O hernia repair (~05/2022) History of cardiac radiofrequency ablation History of dilatation and curettage Hx of umbilical hernia repair H/O arthroplasty 2007 joint arthroplasty (anchovy procedure) History of carpal tunnel surgery Joint replaced H/O removal of cyst H/O hernia repair 2 hernia repairs 02/25/20 left inguinal and umbilical Spigelian hernia repair History of cholecystectomy History of left knee replacement H/O: hysterectomy 1990 Family History Family History Father Hypertension Heart disease Cerebrovascular accident Mother Hypertension Depression Heart disease Cerebrovascular accident Breast cancer Sibling Hypertension Depression FH: kidney cancer Other Diabetes mellitus Hypertension Other Blood clotting disorder Social History Social History Smoking status: Never smoker Second hand tobacco smoke exposure: Yes Alcohol intake: never Substance use: never Substance use type: does not use Lack of Transportation: No Lack of Food: Never True Current Housing: I Have Housing Concerned About Future Housing: No Difficulty Paying Gas/Electric Bills: No Difficulty Paying for Meds: No Currently Unemployed: No Education: Associate Degree Difficulty w/ Childcare or Family Care: No Living arrangements: with family Occupation/Education: retired Spiritual care concerns: No Anes - Eval Final PreProcedure Day of Procedure 03/12/25 08:28 Patient weight: normal Heart: regular rate and rhythm Lungs: clear to auscultation Airway: Mallampati scale class II Neurological: alert and oriented Last oral intake: >/= 8 hours ASA classification: III Emergent: no Anesthetic plan: proceed Anesthesia type and monitoring: general GIVS and standard monitoring Results Review: All pre-operative results and documents have been reviewed as part of the pre- operative evaluation. Informed Consent: The patient's anesthetic plan and its attendant risks and benefits were discussed with the patient/family/POA. Questions were solicited and answers provided to the satisfaction of the patient/family/POA.
--- NOTE | 2025-03-12 08:28 | PM.HPGS ---
History of Present Illness History of Present Illness Consent: Risks, benefits, and alternatives have been discussed and questions answered. Patient agrees to proceed with procedure. Chief complaint: Gastro-esophageal reflux disease without esophagit Narrative: Kari Marrero is a 70 year old female with diarrhea for 3.5 weeks started after barium test that showed tertiary contractions of esophagus, also stool sample c/w EPI, still not taking pancreatic enzymes Review of Systems Review of Systems: All systems reviewed & are unremarkable except as noted in HPI and below PMFSH Past Medical History Medical History (Updated 03/12/25 @ 08:33 by Ian Wood MD) Exocrine pancreatic insufficiency MGUS (monoclonal gammopathy of unknown significance) Chronic anticoagulation History of cardioversion Nausea and vomiting in adult Abnormal CT scan, esophagus History of multiple miscarriages Obesity (BMI 30-39.9) Liver hemangioma Constipation RLQ abdominal mass Constipation Chronic kidney disease COPD (chronic obstructive pulmonary disease) Skin cancer Diverticulosis PTSD (post-traumatic stress disorder) Fusion of joint Ventral incisional hernia Hyperlipidemia Migraines Hematuria Interstitial cystitis Thyroid disorder Kidney disease Hypertension Headache GERD (gastroesophageal reflux disease) Absence of gallbladder Diabetes Arthritis Anxiety Asthma Surgical History Surgical History H/O cardiac radiofrequency ablation (~10/2022) H/O hernia repair (~05/2022) History of cardiac radiofrequency ablation History of dilatation and curettage Hx of umbilical hernia repair H/O arthroplasty 2007 joint arthroplasty (anchovy procedure) History of carpal tunnel surgery Joint replaced H/O removal of cyst H/O hernia repair 2 hernia repairs 02/25/20 left inguinal and umbilical Spigelian hernia repair History of cholecystectomy History of left knee replacement H/O: hysterectomy 1990 Family History Family History Father Hypertension Heart disease Cerebrovascular accident Mother Hypertension Depression Heart disease Cerebrovascular accident Breast cancer Sibling Hypertension Depression FH: kidney cancer Other Diabetes mellitus Hypertension Other Blood clotting disorder Social History Social History Smoking status: Never smoker Second hand tobacco smoke exposure: Yes Alcohol intake: never Substance use: never Substance use type: does not use Lack of Transportation: No Lack of Food: Never True Current Housing: I Have Housing Concerned About Future Housing: No Difficulty Paying Gas/Electric Bills: No Difficulty Paying for Meds: No Currently Unemployed: No Education: Associate Degree Difficulty w/ Childcare or Family Care: No Living arrangements: with family Occupation/Education: retired Spiritual care concerns: No Meds Home Medications and Allergies Home Medications ?Medication ?Instructions ?Recorded ?Confirmed ?Type oabjmtl-pdzzootnxucua-zspqohzh 250 0.5 tablet PO DAILY PRN migraine 06/07/21 02/24/25 History mg-250 mg-65 mg tablet (Excedrin headache Migraine) vibegron 75 mg tablet (Gemtesa) 75 mg PO DAILY 10/18/21 02/24/25 History polyethylene glycol 3350 17 gram 17 g PO DAILY PRN constipation 11/21/23 02/24/25 History oral powder packet (Miralax) triamcinolone acetonide 0.1 % 1 applic topical DAILY PRN rash 11/21/23 02/24/25 Rx lotion #60 mL albuterol sulfate 90 mcg/actuation 1 inh inhalation Q4H PRN Allergic 01/14/24 02/24/25 Rx aerosol inhaler Symptoms #25.5 grams hydrochlorothiazide 25 mg tablet 25 mg PO DAILY #90 tabs 06/25/24 02/24/25 Rx levothyroxine 50 mcg tablet See Rx Instructions .Route 06/25/24 02/24/25 Rx (Synthroid) .COMPLEX #90 tabs lovastatin 40 mg tablet See Rx Instructions .Route 06/25/24 02/24/25 Rx .COMPLEX #90 tabs sertraline 100 mg tablet (Zoloft) 100 mg PO DAILY #90 tabs 06/25/24 02/24/25 Rx erenumab-aooe 140 mg/mL See Rx Instructions .Route 10/22/24 02/24/25 Rx subcutaneous auto-injector .COMPLEX #3 mL (Aimovig Autoinjector) apixaban 5 mg tablet (Eliquis) 5 mg PO BID #180 tabs 12/10/24 03/12/25 Rx metoprolol succinate 25 mg 12.5 mg PO DAILY 01/06/25 02/24/25 History tablet,extended release 24 hr colestipol 1 gram tablet 1 g PO BID #60 tabs 01/09/25 02/24/25 Rx polyethylene glycol 3350 17 gram 17 g PO BID #100 ea 01/09/25 02/24/25 Rx oral powder packet (Miralax) tirzepatide 7.5 mg/0.5 mL 7.5 mg (0.5 mL) subcut WEEKLY #2 mL 01/09/25 02/24/25 Rx subcutaneous pen injector (Mounjaro) ferrous sulfate 325 mg (65 mg 325 mg PO DAILY #90 tabs 01/12/25 02/24/25 Rx iron) tablet esterified 1 tablet PO DAILY #90 tabs 02/03/25 02/24/25 Rx estrogens-methyltestosterone 1.25 mg-2.5 mg tablet lansoprazole 30 mg capsule,delayed 30 mg PO BID #180 caps 02/17/25 02/24/25 Rx release nystatin 100,000 unit/gram topical 1 applic topical TID PRN as needed 02/24/25 02/24/25 History powder potassium chloride 20 mEq 40 meq PO BID 02/24/25 02/24/25 History tablet,extended release(part/cryst) (Klor-Con M) Allergies Allergy/AdvReac Type Severity Reaction Status Date / Time fentanyl Allergy CARDIAC Verified 03/12/25 08:07 ARREST flecainide Allergy Dizziness Verified 03/12/25 08:07 niacin Allergy Hives Verified 02/24/25 13:12 amoxicillin (From Augmentin) AdvReac Vomiting Verified 02/24/25 13:12 clavulanic acid (From AdvReac Vomiting Verified 02/24/25 13:12 Augmentin) codeine AdvReac Vomiting Verified 02/24/25 13:12 Exam Const: General: comfortable and no acute distress HENMT: Face/Nose/Sinus: Normal nares present Eyes: General: appearance normal, both eyes and all related structures Resp: Auscultation: clear to auscultation bilaterally Cardio: Rate: regular rate Rhythm: regular rhythm GI: Inspection: non-distended GI Palp: Yes Soft to palpation Skin: General skin exam: normal color Extrem: General: normal to inspection Psych: Mental Status: mental status grossly normal Assessment and Plan Assessment and plan (1) Diarrhea: Code(s): R19.7 - Diarrhea, unspecified Status: Acute Assessment and Plan: egd with bx (2) Exocrine pancreatic insufficiency: Code(s): K86.81 - Exocrine pancreatic insufficiency Status: Acute Assessment and Plan: will start pancreatic enzymes
--- NOTE | 2025-03-12 08:32 | S_PTH ---
PATIENT: Kari Marrero LOC: [facility]#:[id number] AGE/SX: 70/F ROOM: RE03/12/[address]: Ian Wood MD : [id number] BED: DIS: 03/12/2025 SPEC #: [id number] RECD: 03/12/25 09:16 STATUS: MANDA MAYBERRY #: [id number] CHAMP: 03/12/25 08:[address]: Ian Wood DEPT: [facility] Surgical RECD BY: Yun Greenfield ENTERED: 03/12/25 09:17 SP TYPE: Surgical OTHR DR: Leonor Benoit, KARINA Tissues: A - Small Bowel Bx B - Gastric Biopsy Procedures: Hematoxylin and Eosin Stain Gross and Microscopic Level 4
[2025-03-12 08:34] VITALS: BP 131/64; PULSE 68; RESP 18; O2SAT 94
[2025-03-12 08:44] VITALS: BP 147/73; PULSE 74; RESP 18; O2SAT 96
[2025-03-12 08:54] VITALS: BP 130/76; PULSE 68; RESP 20; O2SAT 96
== END 2025-03-12 09:08 | disposition home or self-care (01) ==
PROVIDERS: PCP Nurse Practitioner; Referring Provider Nurse Practitioner Family; Visit Provider Internal Medicine Gastroenterology
PROC: 0DJ08ZZ Inspection of Upper Intestinal Tract, Via Natural or Artificial Opening Endoscopic (ICD-10-PCS; CPT 43239; principal; 2025-03-12 08:45)
DX: K29.70 Gastritis, unspecified, without bleeding (principal); K21.9 Gastro-esophageal reflux disease without esophagitis; K59.1 Functional diarrhea; J44.9 Chronic obstructive pulmonary disease, unspecified; K86.81 Exocrine pancreatic insufficiency; E78.5 Hyperlipidemia, unspecified; N18.9 Chronic kidney disease, unspecified; I12.9 Hypertensive chronic kidney disease with stage 1 through stage 4 chronic kidney disease, or unspecified chronic kidney disease; Z79.01 Long term (current) use of anticoagulants; E11.22 Type 2 diabetes mellitus with diabetic chronic kidney disease; Z96.652 Presence of left artificial knee joint; Z79.85 Long-term (current) use of injectable non-insulin antidiabetic drugs
CPT/HCPCS: 43239; 82948; 88305; J2704; J7120